=== PATIENT | male | born 1950 | race Caucasian/White ===

== ENCOUNTER 2018-05-29 10:00 | Outpatient (RCR) | payer MEDICARE, OTHER, SELFPAY | END 2018-06-05 14:43 | disposition home or self-care (01) | LOC: PT.CARL 10:00 | PROVIDERS: Visit Provider Nurse Practitioner Family | DX: M54.42 Lumbago with sciatica, left side (principal); M25.551 Pain in right hip; M25.552 Pain in left hip | CPT/HCPCS: 97014; 97110; 97140; 97163; 97164; G0283 ==

== ENCOUNTER 2019-09-09 11:34 | Emergency (ER) | payer MEDICARE, SELFPAY ==
[2019-09-09 11:47] VITALS: BP 143/72; PULSE 72; RESP 16; TEMP 36.6; O2SAT 98; BMI 41.0
--- NOTE | 2019-09-09 11:52 | XR_ITS ---
PROCEDURE: XR ELBOW RT MIN 3V CLINICAL INDICATION: fall Posttraumatic pain COMPARISON: No exams were available for comparison FINDINGS: No obvious or dislocation. Minimal hypertrophic changes at lateral and minimal spurring the olecranon coronoid. IMPRESSION: Mild degenerative changes, no acute. Dictated by: Jose Calderon MD 09/09/2019 12:16 Electronically signed by Jose Calderon MD in [place] 09/09/2019 12:16
--- NOTE | 2019-09-09 11:52 | XR_ITS ---
PROCEDURE: XR SHOULDER RT MIN 2V CLINICAL INDICATION: pain Pain following injury COMPARISON: No exams were available for comparison FINDINGS: Osteoarthritic are the joint with spurring superiorly. The humeral head laterally consistent tendinitis. There are mild degenerative changes shoulder. There is mild subacromial stenosis. No acute fracture or dislocation. IMPRESSION: Osteoarthritic changes with suspected calcific tendinitis Dictated by: Jose Calderon MD 09/09/2019 12:18 Electronically signed by Jose Calderon MD in [place] 09/09/2019 12:18
--- NOTE | 2019-09-09 11:56 | PC.NURSE ---
pt to xray
--- NOTE | 2019-09-09 12:29 | HMH.EDGENADL ---
ED Disposition Clinical Impression: Shoulder pain, acute Disposition: Home, Self-Care Condition on Discharge: Good Additional Instructions: Please follow-up with Dr. Tillman on September 15 at 9 AM. Referrals: Bambi Tolentino APRN [Primary Care Provider] - - Critical Care Critical Care Time: No Attestation: On 09/09/19, the high probability of a clinically significant, sudden or life threatening deterioration of the following system(s) required my full and direct attention, intervention and personal management. The time I documented below is in addition to time spent performing reported procedures but includes the following listed in this critical care notation. Medical Decision Making - Medical Records Medical records reviewed: Yes: I reviewed the patient's medical records. - Carlo Inquiry Pt receiving controlled substance: No Vital Signs: 09/09/19 11:47 Temperature 98 F Temperature Source Tympanic Pulse Rate [Left Radial] 72 Respiratory Rate 16 Blood Pressure [Right Arm] 143/72 H Blood Pressure Mean [Right Arm] 95 Blood Pressure Position [Right Arm] Sitting 02 Sat by Pulse Oximetry 98 Oxygen Delivery Method Room Air - Lab Data Lab results reviewed: Yes: I reviewed the patient's lab results. - Radiology Data #1 Image(s): Shoulder Preliminary Findings: Normal/NAD General Adult HPI - General Chief complaint: PAIN Stated complaint: AO [id number] right shoulder pain, home fall Time Seen by Provider: 09/09/19 12:29 Mode of Arrival: Ambulatory Limitations: No Limitations Description of Symptoms (Recalled from ER Triage Doc. by RN): to ed per pvt car with c/o rt shoulder pain pt states fell getting out of a wrecker landing on elbow 07/16/19. pt c/o pain with movement states unable to sleep due to pain - History of Present Illness HPI narrative: 61-year-old male presents with shoulder pain. Patient stated that he had an injury about 10 weeks ago where he fell out of a truck and landed on his shoulder. Since then he did have acute pain secondary to the traumatic injury but the pain did get better now he states that he has almost like an injured feeling in the shoulder. He states that certain movements really exacerbate this pain specifically when driving when internal rotation of that shoulder causes him pain. He also states he feels pain in the anterior part of the shoulder as well especially when lifting objects greater than 90 degrees with that arm. Abduction also causes pain along with weighted abduction. Patient describes his pain as a injured sensation and describes it as sharp pressure in the posterior part of the shoulder. He states that alleviating factors include rest and nonmovement exacerbating factors include abduction and internal rotation. - Related Data Allergies Allergy/AdvReac Type Severity Reaction Status Date / Time No Known Allergies Allergy Unverified 04/30/17 14:37 [facility] History - Hepatitis A Screen Drug use history?: No High risk sexual behaviors?: No History of sexually transmitted infection?: No Currently employed?: No Childcare worker?: No Do you have indoor plumbing?: Yes Do you have electricity?: Yes Attestation statement:: This patient has been screened for Hepatitis A risk factors. I have reviewed the patient's past medical history: Yes - Social History Alcohol Intake: never Occupational Status: other Housing: other ROS Obtained: Yes All systems reviewed & no additional complaints - Constitutional Constitutional: Reports system reviewed and no additional complaints, except as docu - Eyes Eyes: Reports system reviewed and no additional complaints, except as docu - ENT Ears, Nose, Mouth, and Throat: Reports system reviewed and no additional complaints, except as docu - Cardiovascular Cardiovascular: Reports system reviewed and no additional complaints, except as docu - Respiratory Respiratory: Yes system reviewed and no additional complain
[2019-09-09 12:51] VITALS: BP 143/72; PULSE 72; RESP 16; TEMP 36.6; O2SAT 98
== END 2019-09-09 12:52 | disposition home or self-care (01) ==
PROVIDERS: Emergency Provider Family Medicine; PCP Nurse Practitioner Family
DX: M25.511 Pain in right shoulder (principal)
CPT/HCPCS: 73030; 73080; 99282

== ENCOUNTER → 2019-09-21 12:44 | Outpatient (CLI) | payer MEDICARE, SELFPAY | PROVIDERS: PCP Family Medicine; Visit Provider Orthopaedic Surgery | DX: M25.511 Pain in right shoulder (principal) ==

== ENCOUNTER → 2019-09-25 13:41 | Outpatient (CLI) | payer MEDICARE, SELFPAY ==
--- NOTE | 2019-09-25 14:13 | MR_ITS ---
PROCEDURE: MR SHOULDER RT WO CON CLINICAL INDICATION: RIGHT SHOULDER PAIN Severe right shoulder pain COMPARISON: XR SHOULDER RT MIN 2V from 09/09/2019 TECHNIQUE: Routine multiplanar multi echo sequences are performed without gadolinium enhancement. FINDINGS: Exam is very limited due to patient's inability to tolerate the exam. Limited sequences are submitted including oblique coronal and axial images. Exam was done with the patient in the body coil due to patient's body size. Prominent hypertrophic and osteoarthritic changes are present at the acromioclavicular joint. There is subacromial stenosis of 5 mm. The infraspinatus tendon and supraspinatus tendon are thickened consistent with tendinopathy/tendinosis. It is very difficult to evaluate the supraspinatus tendon due to patient's positioning. A complete or full-thickness tear however is not felt to be present. The subscapularis and teres minor tendons appear intact. No obvious labral tear. There is a small shoulder joint effusion and there is fluid collection in the sub coracoid region consistent with bursitis. IMPRESSION: Very limited exam with tendinopathy/tendinosis of the supraspinatus and infraspinatus tendons. A full-thickness or complete tear is not identified. Osteoarthritic changes of the acromioclavicular joint with subacromial stenosis with shoulder joint effusion and subcoracoid bursitis Dictated by: Jose Calderon MD 09/26/2019 07:35 Electronically signed by Jose Calderon MD in [place] 09/26/2019 07:35
== END ==
PROVIDERS: PCP Nurse Practitioner Family; Visit Provider Orthopaedic Surgery
DX: M25.511 Pain in right shoulder (principal)
CPT/HCPCS: 73221

== ENCOUNTER 2019-12-02 16:03 | Emergency (ER) | payer MEDICARE, SELFPAY ==
[2019-12-02 16:16] VITALS: BP 156/66; PULSE 68; RESP 20; TEMP 36.5; O2SAT 96; BMI 42.5
--- NOTE | 2019-12-02 16:23 | HMH.EDGENADL ---
ED Disposition Clinical Impression: Vertigo Disposition: Home, Self-Care Condition on Discharge: Good Instructions: DI for Vertigo Additional Instructions: Antivert as needed for vertigo. Follow-up with primary care provider, call tomorrow to arrange follow-up. Return to the emergency room if severe vertigo, unable to walk, repetitive vomiting, visual problems, speaking problems, or numbness or weakness of extremities. Prescriptions: Meclizine HCl [Antivert 25mg tablet] 25 mg PO TIDP PRN #15 tab PRN Reason: Vertigo Transmission Status: Pending to [id number] Referrals: Bambi Tolentino APRN [Primary Care Provider] - - Critical Care Critical Care Time: No Attestation: On , the high probability of a clinically significant, sudden or life threatening deterioration of the following system(s) required my full and direct attention, intervention and personal management. The time I documented below is in addition to time spent performing reported procedures but includes the following listed in this critical care notation. Medical Decision Making - Carlo Inquiry Pt receiving controlled substance: No Vital Signs: 12/02/19 16:16 12/02/19 16:31 Temperature 97.7 F Temperature Source Temporal Artery Scan Pulse Rate [Radial] 68 71 Respiratory Rate 20 Blood Pressure [Right Arm] 156/66 H 144/69 H Blood Pressure Mean [Right Arm] 96 94 Blood Pressure Source [Right Arm] Automatic Cuff Automatic Cuff Blood Pressure Position [Right Arm] Sitting Sitting 02 Sat by Pulse Oximetry 96 96 Oxygen Delivery Method Room Air Room Air - Lab Data Lab Results 12/02/19 18:00: WBC 8.4, RBC 4.48 L, Hgb 14.1, Hct 40.7 L, MCV 91.0, MCH 31.4 H, MCHC 34.5, RDW 13.5, Plt Count 120 L, MPV 10.0, Neut % (Auto) 63.0, Lymph % (Auto) 28.5, [place] % (Auto) 4.7, Eos % (Auto) 3.0, Baso % (Auto) 0.9, Neut # (Auto) 5.3, Lymph # (Auto) 2.4, [place] # (Auto) 0.4, Eos # (Auto) 0.3, Baso # (Auto) 0.1 12/02/19 18:00: Sodium 138, Potassium 4.1, Chloride 103, Carbon Dioxide 27, Anion Gap 12.1, BUN 13, Creatinine 0.80, Estimated Creat Clear 68, Estimated GFR 96, Est GFR ( Amer) 116, Glucose 141 H, Calcium 8.9, Total Bilirubin 1.0, AST 38, ALT 35, Alkaline Phosphatase 48, Troponin I < 0.01, Total Protein 6.8, Albumin 3.7, Globulin 3.1, Albumin/Globulin Ratio 1.2, Acetone Level None detected 12/02/19 18:11: Urine Color Straw, Urine Appearance Clear, Urine pH 6.5, Ur Specific Friend <= 1.005, Urine Protein Negative, Urine Glucose (UA) Negative, Urine Ketones Negative, Urine Blood Negative, Urine Nitrate Negative, Urine Bilirubin Negative, Urine Urobilinogen 0.2, Ur Leukocyte Esterase Negative, Urine RBC None, Urine WBC Occasional, Ur Squamous Epith Cells Occasional, Urine Bacteria None Result diagrams: 12/02/19 18:00 12/02/19 18:00 - CT Data CT Scan: Head Time Received: 17:[address] Reviewed: Yes: I have viewed the radiologist's interpretation Findings Narrative: PROCEDURE: CT HEAD/BRAIN WO CON CLINICAL INDICATION: vertigo Vertigo and dizziness COMPARISON: No exams were available for comparison TECHNIQUE: Axial images obtained. All CT scans at the facility use one or more dose reduction, viz: automated exposure control, ma/kV adjustment per patient size (including targeted exams where dose is matched to indication, i.e. head), or iterative reconstruction technique. FINDINGS: No midline shift, mass effect, intracranial hemorrhage, hydrocephalus, or extra-axial fluid collection is evident. The calvarium has an unremarkable appearance. No mastoid effusion. No sinus air-fluid level. IMPRESSION: No acute intracranial finding Dictated by: Jose Calderon MD 12/02/2019 17:00 Electronically signed by Jose Calderon MD in [place] 12/02/2019 17:00 - ECG Data Tracing #1 EKG interpreted by Fred Montilla MD: Rhythm: sinus Rate: 64 Crapo: normal Ectopy: none Conduction: Right bundle branch block ST Segment Ch
--- NOTE | 2019-12-02 16:28 | CT_ITS ---
PROCEDURE: CT HEAD/BRAIN WO CON CLINICAL INDICATION: vertigo Vertigo and dizziness COMPARISON: No exams were available for comparison TECHNIQUE: Axial images obtained. All CT scans at the facility use one or more dose reduction, viz: automated exposure control, ma/kV adjustment per patient size (including targeted exams where dose is matched to indication, i.e. head), or iterative reconstruction technique. FINDINGS: No midline shift, mass effect, intracranial hemorrhage, hydrocephalus, or extra-axial fluid collection is evident. The calvarium has an unremarkable appearance. No mastoid effusion. No sinus air-fluid level. IMPRESSION: No acute intracranial finding Dictated by: Jose Calderon MD 12/02/2019 17:00 Electronically signed by Jose Calderon MD in [place] 12/02/2019 17:00
[2019-12-02 16:31] VITALS: BP 144/69; PULSE 71; O2SAT 96
--- NOTE | 2019-12-02 16:43 | PC.NURSE ---
Pt to rad.
--- NOTE | 2019-12-02 16:57 | PC.NURSE ---
Pt returned from rad.
--- NOTE | 2019-12-02 17:26 | ECG_ITS ---
APPROVED REPORT Exam: Resting ECG HR:64 bpm ECG Measurements Heart Rate 64 AXES WV 146 P 54 QRSd 142 QRS 104 QT 440 T 42 QTc 453 <Conclusion> Normal sinus rhythm Right bundle branch block Abnormal ECG Electronically signed by : Aiden Fitzpatrick, 12/04/2019 19:59:57
[2019-12-02 18:19] LABS: Chloride 103 mmol/L (98-107); Sodium 138 mmol/L (136-145)
[2019-12-02 18:20] LABS: Basophils # 0.1 K/mm3 (0-0.2); Basophils % 0.9 % (0.1-2.0); Eosinophils # 0.3 K/mm3 (0.0-0.4); Hematocrit 40.7 % (42.0-52.0); Hemoglobin 14.1 g/dL (14.1-18.0); Lymphocytes # 2.4 K/mm3 (0.7-4.5); Lymphocytes % 28.5 % (10-50); Mean Corpuscular HGB Conc 34.5 g/dL (31.8-35.4); Mean Corpuscular Hemoglobin 31.4 pg (27.0-31.2); Monocytes # 0.4 K/mm3 (0.1-1.0); Monocytes % 4.7 % (1.7-9.3); Neutrophils # 5.3 K/mm3 (1.8-7.8); Platelet Count 120 K/mm3 (142-424); Potassium 4.1 mmoL/L (3.5-5.1); Red Blood Count 4.48 M/mm3 (4.60-6.20); Red Cell Distribution Width 13.5 % (11.5-17.5); White Blood Count 8.4 K/mm3 (4.8-10.8)
[2019-12-02 18:20] LABS: Microscopic, Urine URINE MICROSCOPIC (MICROSCOPIC)
[2019-12-02 18:22] LABS: Alanine Aminotransferase 35 U/L (12-78); Alkaline Phosphatase 48 U/L (38-126); Aspartate Amino Transferase 38 U/L (17-59); Blood Urea Nitrogen 13 mg/dl (9-20); Creatinine Clearance Estimated 68 mL/min (50-200); Estimated Glomerular Filt Rate 96 ml/min (>60); GFR (African American) 116 ML/MIN (>60)
[2019-12-02 18:23] LABS: Appearance,Urine CLEAR (Clear); Bilirubin,Urine Negative (Negative); Blood, Urine Negative (Negative); Color,Urine STRAW (Yellow); Glucose,Urine (UA) Negative (Negative); Ketones,Urine Negative (Negative); Leukocyte Esterase,Urine Negative (Negative); Nitrate,Urine Negative (Negative); PH,Urine 6.5 (5.0-8.5); Protein,Urine Negative (Negative); Specific Gravity, Urine <= 1.005 (1.005-1.030); Urobilinogen,Urine 0.2 EU/dl (0.2)
[2019-12-02 18:23] LABS: Albumin Level 3.7 g/dl (3.5-5.0); Albumin/Globulin Ratio 1.2 (1.1-1.8); Anion Gap 12.1 mEq/L (5-15); Calcium 8.9 mg/dl (8.4-10.2); Carbon Dioxide 27 mmol/L (22.0-30.0); Globulin 3.1 g/dL (1.3-3.2); Glucose 141 mg/dl (74-100); Total Protein,Serum 6.8 g/dl (6.3-8.2)
[2019-12-02 19:03] LABS: Troponin I < 0.01 ng/ml (0.00-0.034)
[2019-12-02 19:16] LABS: Squamous Epithelial Cell,Urine Occasional #/hpf (0-5); WBC,Urine Occasional #/hpf (0-3)
[2019-12-02 19:16] LABS: Acetone, Serum (Rapid) None Detected (None Detect)
[2019-12-02 19:35] VITALS: BP 136/70; PULSE 65; RESP 14; TEMP 36.4; O2SAT 96
== END 2019-12-02 19:35 | disposition home or self-care (01) ==
PROVIDERS: Emergency Provider Emergency Medicine; PCP Nurse Practitioner Family
DX: R42 Dizziness and giddiness (principal); E11.65 Type 2 diabetes mellitus with hyperglycemia; E78.5 Hyperlipidemia, unspecified; K21.9 Gastro-esophageal reflux disease without esophagitis; I10 Essential (primary) hypertension; Z79.899 Other long term (current) drug therapy
CPT/HCPCS: 70450; 80053; 81001; 82009; 84484; 85025; 93005; 99283; 99284

== ENCOUNTER 2019-12-17 10:00 | Outpatient (RCR) | payer MEDICARE, SELFPAY ==
--- NOTE | 2019-11-24 10:34 | HMH.RHREAS ---
Rehab Reassessment Rehab OP Re-assessment Start: 11/24/19 10:20 Freq: Status: Active Protocol: Document 11/24/19 10:20 CARRIE (Rec: 11/24/19 10:23 CARRIE [id number]) Electronically Signed By Danika Stern OT 11/24/19 10:20 Rehab Re-assessment Subjective Subjective I'm feeling pretty good. I still feel like I need to continue therapy to help my arm. Objective Objective Notes Patient has participated well in skilled OT services since the SOC. Patient has participated fully in therapeutic exer, thera act and modalities to increase strength, AROM, endurance and decrease pain levels to return to prior level of function. Assessment Progress Assessment Progressing as Expected Assessment Notes However Patient continues to exhibit deficits with AROM of shoulder ABD and verbalize pain during movement. Patient continues to verbalize diffculty alex belt on however demonstrates 70 degrees of IR without pain. Patient goals met R shoulder ER: 90 IR: 70 Increase R shoulder strengthening 4 Increase endurance to 40 mins of exercises prior to RB 3-4/10 pain at worst Goals Not Met R shoulder AROM ABD: 120 Revised Goals R shoulder AROM of ABD: 140 Increase R shoulder strength to 4 to 4+/5 throughout Increase endurance to 45 mins of exer prior to RB 2-3/10 pain at worst Plan Plan Continue POC. Follow up with MD on 12/01/19. Frequency of Therapy 2x/wk Duration of therapy 4wks Time and Billing Re-Eval Time 15 Re-Eval Billing Units 1 PHYSICIAN CERTIFICATION: I certify the specified therapy services for [place] are required, authorized, and reviewed every 30 days.
== END 2019-12-17 13:00 | disposition home or self-care (01) ==
LOC: OT 10:00
PROVIDERS: PCP Nurse Practitioner Family; Visit Provider Orthopaedic Surgery
DX: M75.41 Impingement syndrome of right shoulder (principal)
CPT/HCPCS: 97014; 97033; 97035; 97110; 97164; 97165; 97530; G0283

== ENCOUNTER → 2020-04-19 14:22 | Outpatient (POV) | payer MEDICARE, SELFPAY | PROVIDERS: Visit Provider Dermatology | DX: Z00.00 Encounter for general adult medical examination without abnormal findings (principal) ==

== ENCOUNTER 2020-12-24 10:27 | Emergency (ER) | payer MEDICARE, SELFPAY ==
[2020-12-24 10:28] VITALS: BP 109/56; PULSE 67; RESP 22; TEMP 36.7; O2SAT 93; BMI 40.7
--- NOTE | 2020-12-24 10:53 | HMH.EDUTC ---
[facility] [place] Clinical Impression: Viral syndrome, Exposure to COVID-19 virus Disposition: Home, Self-Care Condition on Discharge: Good Instructions: DI for Viral Syndrome, DI for COVID-19 (Suspected or Confirmed ), Preventing the Spread of Coronavirus Discharge Instructions Additional Instructions: Drink plenty of fluids. Take tylenol for pain or fever. Return if you begin to have difficulty breathing. Follow up with your regular doctor. GO TO THE ER FOR ANY WORSENING SYMPTOMS Quarantine until you know the results of your covid-19 test. If it is positive, the health department should call you and give you further instructions about your length of Quarantine and other thing. Prescriptions: Ondansetron [Zofran 4mg ODT] 4 mg PO Q8HP PRN #12 tab.rapdis PRN Reason: Nausea Transmission Status: Received by [id number] Benzonatate [Tessalon Perle 100mg Cap] 100 mg PO TIDP PRN #30 cap PRN Reason: Cough Transmission Status: Received by [facility] Referrals: Bambi Tolentino APRN [Primary Care Provider] - Time of Disposition: 11:13 Medical Decision Making - Medical Records Medical records reviewed: No: I reviewed the patient's medical records. - Carlo Inquiry Pt receiving controlled substance: No Vital Signs: 12/24/20 10:28 12/24/20 11:42 Temperature 98.0 F 0 F L Temperature Source Oral Pulse Rate 0 L Pulse Rate [Right Radial] 67 Respiratory Rate 22 0 L Blood Pressure 0/0 L Blood Pressure [Right Arm] 109/56 L Blood Pressure Mean [Right Arm] 73 Blood Pressure Source [Right Arm] Automatic Cuff Blood Pressure Position [Right Arm] Sitting 02 Sat by Pulse Oximetry 93 L Oxygen Delivery Method Room Air Orders (Tests/Meds): ORDERS Category Date Time Status Covid-19 Nasal PCR ([facility]) Routine Lab 12/24/20 10:50 Received [facility] [place] HPI - General Stated complaint: weakness,cough Time Seen by Provider: 12/24/20 10:54 - History of Present Illness Provider Complaint: He states that he has felt bad for the past 5 days. He has chilling, body aches, a dry cough and a scratchy sore throat. He states that his body aches have been pretty bad . He was vaccinated with the J&J vaccine around August 15, - Related Data Home Medications Medication Instructions Recorded Confirmed aspirin 81 mg tablet,delayed 81 mg PO DAILY 09/16/19 08/31/20 release atorvastatin 20 mg tablet 20 mg PO DAILY 09/16/19 08/31/20 fluticasone propionate 50 1 spray INTRANASAL DAILY 09/16/19 08/31/20 mcg/actuation nasal spray,suspension furosemide 20 mg tablet 20 mg PO Q OTHER DAY 09/16/19 08/31/20 gabapentin 300 mg capsule 300 mg PO DAILY 09/16/19 08/31/20 lancets See Rx Instructions .ROUTE 09/16/19 08/31/20 .MEDSUPPLY #50 each losartan 50 mg tablet 50 mg PO DAILY 09/16/19 08/31/20 montelukast 10 mg tablet 10 mg PO DAILY 09/16/19 08/31/20 omeprazole 20 mg capsule,delayed 20 mg PO DAILY 09/16/19 08/31/20 release ciprofloxacin HCl 500 mg tablet 500 mg PO tab 08/31/20 08/31/20 glipizide 10 mg tablet, extended mg PO 08/31/20 08/31/20 release 24 hr metformin 1,000 mg tablet 1,000 mg PO tab 08/31/20 08/31/20 metoprolol succinate 25 mg mg PO 08/31/20 08/31/20 tablet,extended release 24 hr Previous Rx's Medication Instructions Recorded alprazolam 1 mg tablet 1 mg PO ONCE #1 tab 09/24/19 Meclizine HCl [Antivert 25mg 25 mg PO TIDP PRN #15 tab 12/02/19 tablet] Benzonatate [Tessalon Perle 100mg 100 mg PO TIDP PRN #30 cap 12/24/20 Cap] Ondansetron [Zofran 4mg ODT] 4 mg PO Q8HP PRN #12 tab.rapdis 12/24/20 Allergies Allergy/AdvReac Type Severity Reaction Status Date / Time No Known Allergies Allergy Verified 08/31/20 12:53 [facility] History - Hepatitis A Screen Attestation statement:: This patient has been screened for Hepatitis A risk factors. I have reviewed the patient's past medical history: Yes Medical History: Reports:: Diabetes Mellitus T
[2020-12-24 11:42] VITALS: BP 0/0; PULSE 0; RESP 0; TEMP -17.7; TEMP 0
--- NOTE | 2020-12-24 14:53 | PC.NURSE ---
called patient and updated him on result of positive covid swab. patient informed to quarantine and to pay close attention to certain symptoms.
== END 2020-12-24 11:42 | disposition home or self-care (01) ==
PROVIDERS: Emergency Provider Nurse Practitioner Family; PCP Nurse Practitioner Family
DX: B34.9 Viral infection, unspecified (principal); Z20.822 Contact with and (suspected) exposure to COVID-19
CPT/HCPCS: 99202; G0463; U0003

== ENCOUNTER 2021-04-21 10:30 | Emergency (ER) | payer MEDICARE, SELFPAY ==
[2021-04-21 10:35] VITALS: BP 145/56; PULSE 66; RESP 18; TEMP 36.6; O2SAT 96; BMI 39.2
--- NOTE | 2021-04-21 10:48 | HMH.EDUTC ---
[facility] [place] Disposition Clinical Impression: UTI (urinary tract infection) Qualifiers: Urinary tract infection type: site unspecified Hematuria presence: with hematuria Qualified Code(s): N39.0 - Urinary tract infection, site not specified Disposition: Home, Self-Care Condition on Discharge: Good Instructions: DI for Urinary Tract Infection (UTI) Additional Instructions: Drink plenty of fluids. Take tylenol or ibuprofen for pain or fever. Take the medications as directed. Follow up with your regular doctor. GO TO THE ER FOR ANY WORSENING SYMPTOMS Follow up with your primary care physician next week for a recheck. Prescriptions: Ciprofloxacin HCl [Cipro 500mg Tab] 500 mg PO BID 14 Days #28 tab Transmission Status: Received by [id number] Referrals: Bambi Tolentino APRN [Primary Care Provider] - Time of Disposition: 11:58 Medical Decision Making - Medical Records Medical records reviewed: No: I reviewed the patient's medical records. - Carlo Inquiry Pt receiving controlled substance: No Vital Signs: 04/21/21 10:35 04/21/21 11:59 Temperature 97.8 F 97.8 F Temperature Source Oral Pulse Rate 66 Pulse Rate [Right Brachial] 66 Respiratory Rate 18 18 Blood Pressure 145/56 H Blood Pressure [Right Arm] 145/56 H Blood Pressure Mean [Right Arm] 85 Blood Pressure Source [Right Arm] Automatic Cuff Blood Pressure Position [Right Arm] Sitting 02 Sat by Pulse Oximetry 96 Oxygen Delivery Method Room Air - Lab Data Lab results reviewed: Yes: I reviewed the patient's lab results. Lab Results 04/21/21 11:07: Urine Color Yellow, Urine Appearance Cloudy, Urine pH 5.5, Ur Specific [place] 1.025, Urine Protein Negative, Urine Glucose (UA) 500, Urine Ketones Negative, Urine Blood Trace, Urine Nitrate Negative, Urine Bilirubin Negative, Urine Urobilinogen 1, Ur Leukocyte Esterase 1+ A Orders (Tests/Meds): ED MEDICATIONS Discontinued Medications Generic Name Dose Route Start Last Admin Trade Name Freq PRN Reason Stop Dose Admin Ceftriaxone Sodium 1 gm 04/21/21 11:32 04/21/21 11:44 Ceftriaxone 1gm Vial IM 04/21/21 11:33 1 gm ONCE ONE Administration Lidocaine HCl 0 ml 04/21/21 11:32 04/21/21 11:44 Lidocaine 1% 5ml Pf Vial IM 04/21/21 11:33 2 ml ONCE ONE Administration ORDERS Category Date Time Status Urine Culture Stat Micro 04/21/21 10:30 Received [facility] [place] HPI - General Stated complaint: bilateral ear ache, muscle pain/body aches Time Seen by Provider: 04/21/21 10:48 - History of Present Illness Provider Complaint: He states that for the past 2 days he has been having low back pain and burning while urinating. He has a history of having a urinary stricture. He has to do straight caths at home. He thinks that he has a uti. - Related Data Home Medications Medication Instructions Recorded Confirmed aspirin 81 mg tablet,delayed 81 mg PO DAILY 09/16/19 08/31/20 release atorvastatin 20 mg tablet 20 mg PO DAILY 09/16/19 08/31/20 fluticasone propionate 50 1 spray INTRANASAL DAILY 09/16/19 08/31/20 mcg/actuation nasal spray,suspension furosemide 20 mg tablet 20 mg PO Q OTHER DAY 09/16/19 08/31/20 gabapentin 300 mg capsule 300 mg PO DAILY 09/16/19 08/31/20 lancets See Rx Instructions .ROUTE 09/16/19 08/31/20 .MEDSUPPLY #50 each losartan 50 mg tablet 50 mg PO DAILY 09/16/19 08/31/20 montelukast 10 mg tablet 10 mg PO DAILY 09/16/19 08/31/20 omeprazole 20 mg capsule,delayed 20 mg PO DAILY 09/16/19 08/31/20 release ciprofloxacin HCl 500 mg tablet 500 mg PO tab 08/31/20 08/31/20 glipizide 10 mg tablet, extended mg PO 08/31/20 08/31/20 release 24 hr metformin 1,000 mg tablet 1,000 mg PO tab 08/31/20 08/31/20 metoprolol succinate 25 mg mg PO 08/31/20 08/31/20 tablet,extended release 24 hr Previous Rx's Medication Instructions Recorded alprazolam 1 mg tablet 1 mg PO ONCE #1 tab 09/24/19 Meclizine HCl [Antivert 25mg 25
[2021-04-21 11:23] LABS: Apearance,Urine Cloudy (Clear); Bilirubin,Urine Negative (Negative); Blood, Urine Trace (Negative); Color,Urine Yellow (Yellow); Glucose,Urine (UA) 500 (Negative); Ketones,Urine Negative (Negative); PH,Urine 5.5 (5.0-8.5); Protein,Urine Negative (Negative); Specific Gravity, Urine 1.025 (1.005-1.030); UTC Leukocyte Esterase,Urine 1+ (Negative); UTC Nitrate,Urine Negative (Negative); Urobilinogen,Urine 1 EU/dl (0.2)
[2021-04-21 11:59] VITALS: BP 145/56; PULSE 66; RESP 18; TEMP 36.6; O2SAT 96
== END 2021-04-21 12:03 | disposition home or self-care (01) ==
PROVIDERS: Emergency Provider Nurse Practitioner Family; PCP Nurse Practitioner Family
DX: N30.00 Acute cystitis without hematuria (principal); E11.9 Type 2 diabetes mellitus without complications; K21.9 Gastro-esophageal reflux disease without esophagitis; I10 Essential (primary) hypertension; E78.5 Hyperlipidemia, unspecified
CPT/HCPCS: G0463; 81003; 87086; 87088; 87186; 99202

== ENCOUNTER 2021-07-15 09:45 | Emergency (ER) | payer MEDICARE, SELFPAY ==
[2021-07-15 10:00] VITALS: BP 122/73; PULSE 88; RESP 19; TEMP 36.8; O2SAT 97; BMI 37.5
--- NOTE | 2021-07-15 10:49 | HMH.EDUTC ---
[facility] [place] Disposition Condition on Discharge: Good Time of Disposition: 10:53 (sent to ed for eval) <Hong Braga - Last Filed: 07/15/21 10:49> Condition on Discharge: Good <Fred Lu - Last Filed: 07/15/21 13:09> Clinical Impression: Dizziness, Gastroenteritis Diarrhea Qualifiers: Diarrhea type: unspecified type Qualified Code(s): R19.7 - Diarrhea, unspecified Disposition: Home, Self-Care Instructions: DI for Viral Gastroenteritis -- Adult Prescriptions: Ondansetron [Zofran 4mg ODT] 4 mg PO BIDP PRN #10 tab PRN Reason: Nausea Transmission Status: Pending to [id number] Referrals: Bambi Toelntino APRN [Primary Care Provider] - Medical Decision Making - Carlo Inquiry Pt receiving controlled substance: No <Hong Braga - Last Filed: 07/15/21 10:49> - Lab Data Result diagrams: 07/15/21 11:45 07/15/21 11:45 - Reevaluation(s) Time: 13:08 <Fred Lu - Last Filed: 07/15/21 13:09> Vital Signs: 07/15/21 10:00 07/15/21 11:03 07/15/21 12:42 Temperature 98.3 F 98.3 F Temperature Source Oral Oral Pulse Rate [Right Brachial] 88 87 78 Respiratory Rate 19 17 14 Blood Pressure [Right Arm] 122/73 141/71 H 136/70 Blood Pressure Mean [Right Arm] 89 94 92 Blood Pressure Source [Right Arm] Automatic Cuff Blood Pressure Position [Right Arm] Sitting 02 Sat by Pulse Oximetry 97 95 95 Oxygen Delivery Method Room Air Room Air - Lab Data Lab Results 07/15/21 11:45: WBC 5.5, RBC 4.77, Hgb 14.5, Hct 44.0, MCV 92.3, MCH 30.3, MCHC 32.8, RDW 14.1, Plt Count 167, MPV 10.1, Neut % (Auto) 77.2, Lymph % (Auto) 14.6, [place] % (Auto) 7.0, Eos % (Auto) 0.3, Baso % (Auto) 0.9, Neut # (Auto) 4.2, Lymph # (Auto) 0.8, [place] # (Auto) 0.4, Eos # (Auto) 0.0, Baso # (Auto) 0.1 07/15/21 11:45: Sodium 133 L, Potassium 3.7, Chloride 98, Carbon Dioxide 26, Anion Gap 12.7, BUN 18, Creatinine 0.90, Estimated Creat Clear 116, Estimated GFR 83, Est GFR ( Amer) 101, Glucose 195 H, Calcium 7.7 L, Total Bilirubin 2.0 H, AST 102 H, ALT 59, Alkaline Phosphatase 79, Total Protein 7.4, Albumin 4.0, Globulin 3.4 H, Albumin/Globulin Ratio 1.2 07/15/21 11:45: Lipase 82 Orders (Tests/Meds): ED MEDICATIONS Discontinued Medications Generic Name Dose Route Start Last Admin Trade Name Freq PRN Reason Stop Dose Admin Sodium Chloride 1,000 mls @ 999 mls/hr 07/15/21 11:15 07/15/21 11:27 Sod Chlor 0.9% 1000ml Bag IV 07/15/21 12:15 999 mls/hr .Q1H1M CRESENCIO Administration Ondansetron HCl 4 mg 07/15/21 11:09 07/15/21 11:27 Ondansetron 4mg/2ml Vial IV 07/15/21 11:10 4 mg ONCE ONE Administration - Reevaluation(s) Reevaluation #1: On reevaluation, the patient is feeling better. There is no evidence of leukocytosis. Repeat examination is benign. Patient is tolerating oral intake without any difficulties. Patient will follow up with PCP in 48 hours. Given strict return precautions. Verbalized understanding. (Fred Lu) Medical Decision Narrative: 71-year-old male presented to the emergency department with some vomiting and diarrhea. Patient symptoms are consistent with gastroenteritis. There is concern for some possible volume depletion. Patient was ministered fluids. Work-up initiated. Abdominal exam is benign. No evidence of acute abdomen. (Fred Lu) [facility] [place] HPI - General Mode of Arrival: Ambulatory Source of Information: Patient Limitations: No Limitations Description of Symptoms (Recalled from Triage Doc. by RN): PATIENT C/O VOMITING AND DIARRHEA X 3 DAYS HEENT Symptoms (Recalled from RN notes): No Resp Symptoms (Recalled from RN notes): No Skin Symptoms (Recalled from RN notes): No MS Symptoms (Recalled from RN notes): No Functional Status (Recalled from RN notes): WNL - History of Present Illness Provider Complaint: 71 yr old male presents for n/d/v and dizzy since . pt states he is unable to eat or drink anything for 2 days, pt sta
--- NOTE | 2021-07-15 10:52 | PC.NURSE ---
PATIENT SENT TO ER PER Syed PROCTOR APRN FOR FURTHER EVALUATION. REPORT GIVEN TO Victor Hugo REDDY RN
[2021-07-15 11:03] VITALS: BP 141/71; PULSE 87; RESP 17; TEMP 36.8; O2SAT 95; BMI 39.8
--- NOTE | 2021-07-15 11:37 | ECG_ITS ---
APPROVED REPORT Exam: Resting ECG HR:80 bpm ECG Measurements Heart Rate 80 AXES ID 150 P 52 QRSd 145 QRS 42 QT 406 T 31 QTc 442 Conclusion SINUS RHYTHM RIGHT BUNDLE BRANCH BLOCK [120+ ms QRS DURATION, UPRIGHT V1, 40+ ms S IN I/aVL/V4/V5/V6] ABNORMAL ECG UNCONFIRMED REPORT Electronically signed by : Nithin Day MD 07/16/2021 15:33:34
[2021-07-15 11:55] LABS: Basophils # 0.1 K/mm3 (0-0.2); Basophils % 0.9 % (0.1-2.0); Eosinophils % 0.3 % (0.1-12.0); Hemoglobin 14.5 g/dL (14.1-18.0); Lymphocytes # 0.8 K/mm3 (0.7-4.5); Lymphocytes % 14.6 % (10-50); Mean Corpuscular HGB Conc 32.8 g/dL (31.8-35.4); Mean Corpuscular Hemoglobin 30.3 pg (27.0-31.2); Mean Corpuscular Volume 92.3 fl (80-94); Mean Platelet Volume 10.1 fl (7.4-10.4); Monocytes # 0.4 K/mm3 (0.1-1.0); Neutrophils # 4.2 K/mm3 (1.8-7.8); Neutrophils % 77.2 % (37.0-80.0); Platelet Count 167 K/mm3 (142-424); Red Blood Count 4.77 M/mm3 (4.60-6.20); Red Cell Distribution Width 14.1 % (11.5-17.5); White Blood Count 5.5 K/mm3 (4.8-10.8)
[2021-07-15 12:02] LABS: Chloride 98 mmol/L (98-107); Potassium 3.7 mmoL/L (3.5-5.1); Sodium 133 mmol/L (136-145)
[2021-07-15 12:04] LABS: Blood Urea Nitrogen 18 mg/dl (9-20); Creatinine Clearance Estimated 116 mL/min (50-200); Estimated Glomerular Filt Rate 83 ml/min (>60); GFR (African American) 101 ML/MIN (>60); Lipase 82 U/L (23-300)
[2021-07-15 12:05] LABS: Alanine Aminotransferase 59 U/L (12-78); Albumin/Globulin Ratio 1.2 (1.1-1.8); Alkaline Phosphatase 79 U/L (38-126); Anion Gap 12.7 mEq/L (5-15); Aspartate Amino Transferase 102 U/L (17-59); Calcium 7.7 mg/dl (8.4-10.2); Carbon Dioxide 26 mmol/L (22.0-30.0); Globulin 3.4 g/dL (1.3-3.2); Glucose 195 mg/dl (74-100); Total Protein,Serum 7.4 g/dl (6.3-8.2)
[2021-07-15 12:42] VITALS: BP 136/70; PULSE 78; RESP 14; O2SAT 95
[2021-07-15 13:33] VITALS: BP 119/77; PULSE 88; RESP 19; TEMP 36.8; O2SAT 96
== END 2021-07-15 13:34 | disposition home or self-care (01) ==
LOC: UTC 10:54 → ER 10:59
PROVIDERS: Emergency Medicine; Emergency Provider Nurse Practitioner Family; PCP Nurse Practitioner Family
DX: R42 Dizziness and giddiness (principal); R11.0 Nausea; R19.7 Diarrhea, unspecified; I10 Essential (primary) hypertension; E78.5 Hyperlipidemia, unspecified; K21.9 Gastro-esophageal reflux disease without esophagitis; E10.9 Type 1 diabetes mellitus without complications; M19.90 Unspecified osteoarthritis, unspecified site; Z79.82 Long term (current) use of aspirin; Z79.84 Long term (current) use of oral hypoglycemic drugs; Z79.899 Other long term (current) drug therapy; Z79.51 Long term (current) use of inhaled steroids
CPT/HCPCS: 80053; 83690; 85025; 93005; 96361; 96365; 96374; 96375; 99284; J2405

== ENCOUNTER → 2022-11-07 16:30 | Outpatient (CLI) | payer MEDICARE, SELFPAY ==
--- NOTE | 2022-11-07 16:32 | MR_ITS ---
PROCEDURE INFORMATION: Exam: MR Left Upper Extremity Joint Without Contrast; Shoulder Exam date and time: 11/07/2022 4:27 PM Age: 72 years old Clinical indication: Pain; Shoulder; Left; Additional info: Left shoulder pain. Limited rom. TECHNIQUE: Imaging protocol: Magnetic resonance imaging of the left upper extremity without contrast. Exam focused on the shoulder. COMPARISON: No relevant prior studies available. FINDINGS: Bones/joints: The acromioclavicular joint has mild osteoarthrosis. The acromion is type 2. There is moderate diffuse chondromalacia of the glenohumeral joint. The alignment is anatomic. The marrow signal is normal. No fracture. Glenoid labrum: There is degeneration of the labrum with nondisplaced superior tearing. Supraspinatus tendon: Low-grade articular sided tear of supraspinatus measuring 9 mm AP dimension with associated tendinosis. Infraspinatus tendon: Infraspinatus tendinosis is also present without evidence of tearing. Subscapularis tendon: Tendinosis of subscapularis is also present with low-grade articular sided tearing. Teres minor tendon: Unremarkable. No evidence of tear. Tendon of biceps brachii: Unremarkable. No evidence of tear. Glenohumeral ligaments: Unremarkable. Soft tissues: Unremarkable. IMPRESSION: 1. Diffuse rotator cuff tendinosis with low-grade articular sided tearing of supraspinatus and subscapularis. No muscular atrophy. 2. 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 3. Labral degeneration with nondisplaced superior tear.
== END ==
PROVIDERS: PCP Nurse Practitioner Family; Visit Provider Orthopaedic Surgery
DX: M25.512 Pain in left shoulder (principal)
CPT/HCPCS: 73221

== ENCOUNTER 2023-05-13 12:00 | Emergency (ER) | payer MEDICARE, SELFPAY ==
[2023-05-13 13:50] VITALS: BP 129/77; PULSE 75; RESP 19; TEMP 36.7; O2SAT 98; BMI 41.0
--- NOTE | 2023-05-13 14:09 | ED_ITS ---
Discharge Plan Disposition Patient Disposition: Home, Self-Care Condition: Good Prescriptions Prescriptions: New amoxicillin 500 mg capsule 500 mg PO TID 7 Days Qty: 21 0RF No Action (DME) lancets [Accu-Chek Softclix Lancets] Misc See Rx Instructions .ROUTE .MEDSUPPLY Qty: 50 Rx Instructions: As directed atorvastatin 20 mg tablet 20 mg PO HS glipizide 10 mg tablet extended release 24hr 10 mg PO DAILY gabapentin 300 mg capsule 300 mg PO DAILY omeprazole 20 mg capsule,delayed release(DR/EC) 20 mg PO DAILY montelukast 10 mg tablet 10 mg PO DAILY metoprolol succinate 25 mg tablet extended release 24 hr 25 mg PO DAILY fluticasone propionate 50 mcg/actuation spray,suspension 2 spray INTRANASAL DAILY Referrals Follow up/Referrals: Nia Mccord APRN [Primary Care Provider] - See instructions Activity Restrictions/Add. Instructions Additional Instructions/Restrictions: *Monitor Temp, Over the counter Motrin or Tylenol as directed/as needed Tylenol every 4 hours and Motrin every 6 hours (as long as your family doctor has told you that you can take it) for fever or pain. and straight to ER if unable to lower temp less than 101.0 after medication given *Warm salt water gargles may help to soothe the throat *Throat Lozenges? *Warm fluids like tea with honey may help to soothe the throat? *Sleep elevated *Humidifier/Vaporizer Your throat swab was sent for culture. Those results are typically sent to your primary care. Be sure to follow up in 2-3 days with your family doctor/primary care physician if no improvement so they can review those result and treat if necessary. If you don?t have a primary care doctor, I recommend you get one but in the mean time, you will have to return to a walk in clinic Follow up IMMEDIATELY for new or worsening symptoms or no Noticeable improvement over the next 48-72 hours. 911 for difficulty breathing or swallowing Clinical Impressions Clinical Impression: Otitis media Qualifiers: Otitis media type: unspecified Laterality: left Qualified Code(s): H66.92 - Otitis media, unspecified, left ear Instructions Patient Instructions: Middle Ear Infection, Amoxicillin Discharge ED Provider: Jamia Sawyer [facility] [place] HPI General Stated complaint: pain urinating, ear and throat pain Mode of Arrival: Ambulatory Source of Information: Patient Limitations: No Limitations Time Seen by Provider: 05/13/23 14:09 Description of Symptoms (Recalled from Triage Doc. by RN): PATIENT C/O LEFT EAR PAIN, SORE THROAT, AND PAIN WITH URINATING HEENT Symptoms (Recalled from RN notes): Yes Resp Symptoms (Recalled from RN notes): No Skin Symptoms (Recalled from RN notes): No MS Symptoms (Recalled from RN notes): No Functional Status (Recalled from RN notes): WNL History of Present Illness Provider Complaint: Patient states that he has been having pain in his left ear, sore throat and burning with urination for a couple of days States that he gets UTI's and feels like he may have one but his ear and throat is hurting worse so the came in to get it checked Related Data Home Medications Medication Instructions Recorded Confirmed lancets (Accu-Chek Softclix #50 ea 09/16/19 08/31/20 Lancets) atorvastatin 20 mg tablet 20 mg PO HS 05/13/23 05/13/23 fluticasone propionate 50 2 spray intranasal DAILY 05/13/23 05/13/23 mcg/actuation nasal spray,suspension gabapentin 300 mg capsule 300 mg PO DAILY 05/13/23 05/13/23 glipizide 10 mg tablet, extended 10 mg PO DAILY 05/13/23 05/13/23 release 24 hr metoprolol succinate 25 mg 25 mg PO DAILY 05/13/23 05/13/23 tablet,extended release 24 hr montelukast 10 mg tablet 10 mg PO DAILY 05/13/23 05/13/23 omeprazole 20 mg capsule,delayed 20 mg PO DAILY 05/13/23 05/13/23 release Previous Rx's Medication Instructions Recorded amoxicillin 500 mg capsule 500 mg PO TID 7 days #21 caps 05/13/23 Allergies Allergy/AdvReac Type Severity Reaction Status Date / Time No Known Allergies Allergy Verified 08/31/20 12:53 Worker's Comp Is this a Worker's Comp case?: No [facility] Disclaimer: The information contained in this section may have been updated after the patient was seen, as this information can be updated by other users. Medical History (Updated 05/13/23 @ 14:19 by Jamia Sawyer APRN) Atrial fibrillation Diabetes mellitus, type 2 History of heart attack Hyperlipidemia Hypertension Kidney stone Prostate disorder Urinary tract infection Surgical History (Updated 05/13/23 @ 13:57 by Norma Mohan RN) History of cardiac cath Social History Smoking Status: Never smoker alcohol intake: never current occupational status: other Travel in the last 8 weeks: None housing: house ROS Obtained: Yes All systems reviewed & no additional complaints except as documented and Yes Systems reviewed as appropriate & no additional complaints except as documented Constitutional Constitutional: Reports system reviewed and no additional complaints, except as documented, Reports as per HPI, Denies body ache, Denies chills and Denies fever(s) ENT Ears, Nose, Mouth, and Throat: Reports system reviewed and no additional complaints, except as documented, Reports as per HPI, Reports otalgia and Reports sore throat Cardiovascular Cardiovascular: Reports system reviewed and no additional complaints, except as documented and Reports as per HPI Respiratory Respiratory: Reports system reviewed and no additional complaints, except as documented and Reports as per HPI Gastrointestinal Gastrointestingal: Reports system reviewed and no additional complaints, except as documented and as per HPI; Denies abdominal pain, diarrhea, nausea or vomiting Genitourinary Male Genitourinary: Reports system reviewed and no additional complaints, except as documented, Reports as per HPI and Reports other (burning with urination) Musculoskeletal Musculoskeletal: Reports system reviewed and no additional complaints, except as documented and Reports as per HPI Integumentary/Breasts Skin/Breast: Reports system reviewed and no additional complaints, except as documented and Reports as per HPI Physical Exam General General appearance: alert and in no apparent distress ENT ENT exam: Present mucous membranes moist Expanded ENT Exam TM/Canal exam: Left TM: erythema and bulging Throat exam: Present tonsillar erythema Respiratory Respiratory exam: Present normal lung sounds bilaterally; Absent respiratory distress or wheezes Cardiovascular Cardiovascular exam: Present regular rate, normal rhythm and normal heart sounds Neurological Exam Neurological exam: Present alert, oriented X3 and normal gait Medical Decision Making Carlo Inquiry Pt receiving controlled substance: No Carlo was queried for this patient: No Vital Signs: 05/13/23 13:50 Temperature 98.1 F Temperature Source Oral Pulse Rate [Right Brachial] 75 Respiratory Rate 19 Blood Pressure [Right Arm] 129/77 Blood Pressure Mean [Right Arm] 94 Blood Pressure Source [Right Arm] Automatic Cuff Blood Pressure Position [Right Arm] Sitting 02 Sat by Pulse Oximetry 98 Oxygen Delivery Method Room Air Lab Data Lab results reviewed: Yes I reviewed the patient's lab results.
[2023-05-13 14:10] LABS: Apearance,Urine Clear (Clear); Bilirubin,Urine Negative (Negative); Blood, Urine Negative (Negative); Color,Urine Yellow (Yellow); Glucose,Urine (UA) Negative (Negative); Ketones,Urine Negative (Negative); Protein,Urine Negative (Negative); Specific Gravity, Urine 1.025 (1.005-1.030); UTC Leukocyte Esterase,Urine Negative (Negative); UTC Nitrate,Urine Negative (Negative); UTC Strep Screen (Rapid) Negative (Negative); Urobilinogen,Urine 0.2 EU/dl (0.2)
[2023-05-13 14:21] VITALS: BP 129/77; PULSE 75; RESP 19; TEMP 36.7; O2SAT 98
== END 2023-05-13 14:25 | disposition home or self-care (01) ==
PROVIDERS: Emergency Provider Nurse Practitioner; PCP Nurse Practitioner Family
DX: H66.92 Otitis media, unspecified, left ear (principal); R07.0 Pain in throat; R30.0 Dysuria; E11.9 Type 2 diabetes mellitus without complications; I10 Essential (primary) hypertension; E78.5 Hyperlipidemia, unspecified; Z79.84 Long term (current) use of oral hypoglycemic drugs
CPT/HCPCS: 81003; 87880; 99212; 99214; G0463

== ENCOUNTER 2024-11-28 11:35 | Emergency (ER) | payer MEDICARE, SELFPAY ==
--- OUTSIDE RECORDS SUMMARY | 2024-10-19 10:30 | XMS_ITS | Encounter Summary ---
Author Organization [facility] Address [address] [place] [id number] Care Team Providers Care Jewelry Engraver Name Role Phone BrigettekiannaNia FORM BUILDER Primary Care Provi manda Reason for Visit * Reason Comments Coronary Artery Disease Sleep Apnea Encounter Details Date Type Department Care Team (Late st Contact Info) Description 10/19/2024 10:30 AM EDT Office Visit [facility] [address] [place] [phone] Bonny Vasquez APRN [address] [place] [address] Coronary artery disease involving quileute coronary artery of quileute heart without angina pectoris (Primary Dx); Paroxysmal atrial fibrillation; MARK (obstructive sleep apnea); Hypertension, essential Social History Tobacco Use Types Packs/Day Years Used Date Smoking Tobacco: Never Passive Smoke Exposure: Never Smokeless Tobacco: Never Alcohol Use Standard Drinks/Week Comments Never 0 (1 standard drink = 0.6 oz pur e alcohol) Sex and Gender Information Value Date Recorded Sex Assigned at Male 10/18/2024 7:26 PM EDT Legal Sex Male 4:30 PM EST Gender Identity Not on file Sexual Orientation Not on file documented as of this encounter Last Filed Vital Signs Vital Sign Reading Time Taken Comments Blood Pressure 120/66 10/19/2024 10:17 AM EDT Pulse 69 10/19/2024 10:17 AM EDT Temperature - - Respiratory Rate - - Oxygen Saturation 97% 10/19/2024 10:17 AM EDT Inhaled Oxygen Concentration - - Weight 120 kg (265 lb) 10/19/2024 10:17 AM EDT Height 172.7 cm (5' 8 ) 10/19/2024 10:17 AM EDT Body Mass Index 40.29 10/19/2024 10:17 AM EDT documented in this encounter Progress Notes * Bonny Vasquez APRN - 10/19/2024 12:13 PM EDTAssociated Problem(s): MARK (obstructive sleep apnea) He is doing very well on BiPAP therapy with excellent control and compliance. Download reviewed andinterpreted today. Compliance is 100%, average use per night is 9 hours and 14 minutes. AHI 0.2. -Cannot new PAP therapy at current settings - Continue to wear chinstrap to help prevent leaking - Do not drive if sleepy * Bonny Vasquez APRN - 10/19/2024 12:12 PM EDTAssociated Problem(s): Paroxysmal atrial fibrillation Stable and rate controlled. Only occasional brief episodes that occur with exertion. No sustained events that he is aware of. - Continue metoprolol and Eliquis at current doses. - He no longer qualifies for financial assistance for Eliquis, he has been paying $700 a month, which she cannot afford right now. Samples provided today. He was told that he will be eligible for assistance in March. We will try to provide samples until that time. * Bonny Vasquez APRN - 10/19/2024 12:11 PM EDTAssociated Problem(s): Hypertension, essential Hypertension is stable and controlled Continue current treatment regimen. Dietary sodium restriction. Weight loss. Regular aerobic exercise. Blood pressure will be reassessed in 6 months * Bonny Vasquez APRN - 10/19/2024 12:11 PM EDTAssociated Problem(s): Coronary artery disease involving quileute coronary artery of quileute heart with out angina pectoris Patient reports a previous history of coronary angioplasty in 1996 with no stents. He is currently asymptomatic. Lipid panel from 03/23/2024 reviewed. Total cholesterol 158, triglycerides 104, HDL 45 and LDL 90. - Continue aspirin, atorvastatin, metoprolol and losartan at current doses * Bonny Vasquez APRN - 10/19/2024 10:30 AM EDT Images from the original note were not included. [facility] Provider Note Date: 10/19/2024 Name: Danish Liao : 1950 PCP: Nia Mccord APRN Chief Complaint Patient presents with Coronary Artery Disease Sleep Apnea Subjective History of Present Illness Danish Liao is a 74 y.o. male who presents today for follow-up on MARK, CAD and atrial fibrillation. Patient reports that he has been doing well from a cardiac standpoint. He denies chest pain, shortness of breath, palpitations, lower extremity edema, dizziness or syncope. He also denies any recent ER visits or hospitalizations. He has a history of MARK and is doing very well on BiPAP therapy with excellent control and compliance. Download reviewed and interpreted today. Compliance is 100%, average use per night is 9 hours and 14 minutes. AHI 0.2. He is using a fullface mask and doing wellwith that. Airflow is comfortable. He denies excessive daytime sleepiness or fatigue. He has a history of paroxysmal atrial fibrillation and CAD. He denies any recent known episodes of atrial fib. He continues to take metoprolol and Eliquis. He underwent angioplasty in 1996 but no coronary stents. Overall, he is doing well today with no new concerns at this time. Cardiology/sleep history 1. CAD/mild-data deficit. Stress echo June 16, 2020 2. Paroxysmal A-fib-on metoprolol and Eliquis 3. MARK-PSG 12/22/2021 -BiPAP with pressure support of 4 4. RBBB 5. Carotid duplex 12/30/2019 less than 50% bilaterally 6. Grade 1 diastolic dysfunction Nuclear stress test 04/16/24- ?? Significant coronary artery calcifications seen on CT but no evidence of ischemic coronary artery disease. ?? Impressions are consistent with a low risk study. ?? Left ventricular ejection fraction is normal (Calculated EF = 66%). Echocardiogram 01/24/2023-EF 61 to 65% grade 1 diastolic dysfunction. A-fib but rate controlled at 77. No significant valvular regurgitation or stenosis. RVSP is normal. Reports Denies Chest Pain [] [x] Shortness of Air [] [x] Palpitations [] [x] Edema [] [x] Dizziness [] [x] Syncope [] [x] No Known Allergies Current Outpatient Medications: apixaban (Eliquis) 5 MG tablet tablet, Take 1 tablet by mouth 2 (Two) Times a Day., Disp: 84 tablet, Rfl: 0 Ascorbic Acid (Vitamin C ER) 500 MG tablet controlled-release, Take 500 mg by mouth Daily., Disp: ,Rfl: aspirin 81 MG EC tablet, Daily., Disp: , Rfl: atorvastatin (LIPITOR) 20 MG tablet, Take 1 tablet by mouth Daily., Disp: , Rfl: B-D UF III MINI PEN NEEDLES 31G X 5 MM [facility] [place], , Disp: , Rfl: diphenhydrAMINE (BENADRYL) 25 mg capsule, 2 capsules., Disp: , Rfl: fluticasone (FLONASE) 50 MCG/ACT nasal spray, Administer 1 spray into the nostril(s) as directed byprovider Daily As Needed., Disp: , Rfl: furosemide (LASIX) 20 MG tablet, As needed, Disp: , Rfl: gabapentin (NEURONTIN) 300 MG capsule, Take 1 capsule by mouth Daily., Disp: , Rfl: glipizide (GLUCOTROL XL) 10 MG 24 hr tablet, Take 1 tablet by mouth Daily., Disp: , Rfl: Insulin Glargine (BASAGLAR KWIKPEN) 100 UNIT/ML injection pen, 25 Units 2 (Two) Times a Day., Disp:, Rfl: Insulin Glargine (BASAGLAR KWIKPEN) 100 UNIT/ML injection pen, Inject under the skin into the appropriate area as directed Daily., Disp: , Rfl: losartan (COZAAR) 50 MG tablet, Take 1 tablet by mouth Daily., Disp: , Rfl: metFORMIN (GLUCOPHAGE) 500 MG tablet, Take 1 tablet by mouth 2 (Two) Times a Day With Meals., Disp:, Rfl: metoprolol succinate XL (TOPROL-XL) 25 MG 24 hr tablet, Take 1 tablet by mouth Daily., Disp: 90 tablet, Rfl: 3 montelukast (SINGULAIR) 10 MG tablet, Take 1 tablet by mouth., Disp: , Rfl: omeprazole (priLOSEC) 20 MG capsule, Daily., Disp: , Rfl: VITAMIN D PO, Take by mouth., Disp: , Rfl: Past Medical History: Diagnosis Date CAD (coronary artery disease) Essential (primary) hypertension Hypercholesterolemia Lumbar herniated disc NECK 1998 MARK (obstructive sleep apnea) BASELINE AHI 35 ; ON AUTOCPAP Paroxysmal atrial fibrillation Type 2 diabetes mellitus Past Surgical History: Procedure Laterality Date ANGIOPLASTY 1996 BACK SURGERY Family History Problem Relation Age of Onset Kidney failure Mother Other Sister LIVER FAILURE Social History Socioeconomic History Marital status: Number of children: 5 Tobacco Use Smoking status: Never Passive exposure: Never Smokeless tobacco: Never Vaping Use Vaping status: Never Used Substance and Sexual Activity Alcohol use: Never Drug use: Never Sexual activity: Defer Objective Vital Signs: BP 120/66 Pulse 69 Ht 172.7 cm (68 ) Wt 120 kg (265 lb) SpO2 97% BMI 40.29 kg/m?? Estimated body mass index is 40.29 kg/m?? as calculated from the following: Height as of this encounter: 172.7 cm (68 ). Weight as of this encounter: 120 kg (265 lb). Class 3 Severe Obesity (BMI >=40). Obesity-related health conditions include the following: obstructive sleep apnea and hypertension. Obesity is unchanged. BMI is is above average; BMI management plan is completed. We discussed portion control and increasing exercise. Physical Exam Vitals reviewed. Constitutional: Appearance: Normal appearance. HENT: Head: Normocephalic. Cardiovascular: Rate and Rhythm: Normal rate and regular rhythm. Heart sounds: Normal heart sounds. Pulmonary: Effort: Pulmonary effort is normal. Breath sounds: Normal breath sounds. Musculoskeletal: Right lower leg: No edema. Left lower leg: No edema. Skin: General: Skin is warm and dry. Capillary Refill: Capillary refill takes less than 2 seconds. Neurological: General: No focal deficit present. Mental Status: He is alert and oriented to person, place, and time. Psychiatric: Mood and Affect: Mood normal. Behavior: Behavior normal. PAP download reviewed: Most recent PAP download reviewed Assessment and Plan Diagnoses and all orders for this visit: 1. Coronary artery disease involving quileute coronary artery of quileute heart without angina pectoris(Primary) Assessment & Plan: Patient reports a previous history of coronary angioplasty in 1996 with no stents. He is currently asymptomatic. Lipid panel from 03/23/2024 reviewed. Total cholesterol 158, triglycerides 104, HDL 45 and LDL 90. - Continue aspirin, atorvastatin, metoprolol and losartan at current doses 2. Paroxysmal atrial fibrillation Comments: Rare episodes. Continue medication doing well. Assessment & Plan: Stable and rate controlled. Only occasional brief episodes that occur with exertion. No sustained events that he is aware of. - Continue metoprolol and Eliquis at current doses. - He no longer qualifies for financial assistance for Eliquis, he has been paying $700 a month, which she cannot afford right now. Samples provided today. He was told that he will be eligible for assistance in March. We will try to provide samples until that time. Orders: - apixaban (Eliquis) 5 MG tablet tablet; Take 1 tablet by mouth 2 (Two) Times a Day. Dispense: 84 tablet; Refill: 0 3. MARK (obstructive sleep apnea) Assessment & Plan: He is doing very well on BiPAP therapy with excellent control and compliance. Download reviewed andinterpreted today. Compliance is 100%, average use per night is 9 hours and 14 minutes. AHI 0.2. -Cannot new PAP therapy at current settings - Continue to wear chinstrap to help prevent leaking - Do not drive if sleepy 4. Hypertension, essential Assessment & Plan: Hypertension is stable and controlled Continue current treatment regimen. Dietary sodium restriction. Weight loss. Regular aerobic exercise. Blood pressure will be reassessed in 6 months Recommendations: ER if symptoms increase and Report if any new/changing symptoms immediately Follow Up No follow-ups on file. Patient was given instructions and counseling regarding his condition or for health maintenance advice. Please see specific information pulled into the AVS if appropriate. documented in this encounter Plan of Treatment Upcoming Encounters Date Type Department Care Team (Late st Contact Info) Description 04/19/2025 10:45 AM EST Office Visit [facility] [address] [place] [phone] Alicia Thomas MD [address] [place], [place] [id number] documented as of this encounter Visit Diagnoses Diagnosis Coronary artery disease involving quileute coronary artery of quileute heart without angina pectoris- Primary Paroxysmal atrial fibrillation Atrial fibrillation MARK (obstructive sleep apnea) Obstructive sleep apnea (adult) (pediatric) Hypertension, essential Unspecified essential hypertension documented in this encounter Care Teams Jewelry Engraver Relationship Specialty Start Date End Date Nia Mccord APRN [address] [place] [id number] PCP - General Nurse Practitioner 06/28/22 documented as of this encounter
[2024-11-28] VITALS (9 sets, daily range): BP systolic 126–146; BP diastolic 56–76; PULSE 61–116; RESP 16–18; TEMP 36.7–37; O2SAT 96–98; BMI 39.5
--- OUTSIDE RECORDS SUMMARY | 2024-11-28 12:04 | XMS_ITS | Data Portability ---
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 Cystoscopy to evaluate lower urinary tract. [email or web address] Not available 09/23/2020 13:10:16 10/04/2020 10/04/2020 DATE OF PROCEDUR E: 10/04/20 PROCEDURE PERFORMED: Cystourethroscopy SURGEON: Caden Cavazos M.D. ANESTHESIA: Local BLOOD LOSS: None PREOPERATIVE INDICATIONS: Hematuria, Urethral stricture POSTOPERATIVE INDICATIONS: Hematuria, Urethral stricture DESCRIPTION OF PROCEDURE: Patient was correctly identified in preoperative holding area. Informed consent was obtained. Risks and benefits were reviewed with patient. Patient was taken to procedure room and positioned supine position. All pressure points padded. Proper timeout procedure completed. Genitourinary area prepped and draped in the normal sterile fashion. Lidocaine jelly instilled for local analgesia. Flexible cystoscope advanced through the urethra. Bladder mucosa without evidence of erythema, papillary bladder mass, foreign body. Ureteral orifices in normal anatomic position. 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 The cystoscope was withdrawn atraumatically. Patient tolerated procedure well. DISPOSITION: Patient was taken to the recovery in stable condition. Discharged home with instructions for outpatient follow-up. [email or web address] Not available 10/04/2020 14:01:18 11/03/2020 11/03/2020 Monitor lower urinary symptoms. [email or web address] Not available 11/05/2020 15:07:28 06/07/2022 06/07/2022 Urine for cultur e and sensitivity. We will order 14 Bengali coud catheters, 10/month, for incomplete emptying of urinary bladder related to BPH. Medical management of erectile dysfunction with tadalafil as needed. [email or web address] Not available 06/07/2022 16:36:36 10/22/2024 10/22/2024 - 74-year-old ma le with benign prostatic hyperplasia and urethral stricture disease, here for follow-up. - Uses 14-inch Coude catheter occasionally for urethral stricture. - Nocturia once nightly, denies dysuria or hematuria. - Tadalafil 20 mg for erectile dysfunction, soreness from catheter use, avoids daily catheterization. Benign Prostatic Hyperplasia: - Monitor symptoms, manage with catheterization. Urethral Stricture Disease: - Use 14-inch Coude catheter as needed, avoid daily use. Erectile Dysfunction: - Continue tadalafil 20 mg as needed. [email or web address] Not available 10/25/2024 10:44:25 Plan of Treatment Reminders Order Date Submit Date Provider Last Modified By Organization Details Last Modified Time Details Appointments RECHECK 2025 01:00P Yolanda CAVAZOS MD Not available Not available Not available Lab urinaly sis panel, auto 2024 025 [facility] With [address], [place], [address], 10/25/2024 10:44:26 urinaly sis panel, auto 2022 023 [email or web address] [facility] With [address] [place], [place], [address], 06/12/2022 08:58:09 culture , urine 2022 023 [facility], [address] [place] [address], [address], 06/12/2022 08:58:09 urinaly sis panel, auto 2020 021 [facility] With [facility], [address] [place] [address] [address] [place], [place], [address], 11/05/2020 15:07:05 urinaly sis panel, auto 2020 021 [email or web address] [facility] With [facility], [address] [place] [address] [address] [place], [place], [address], 09/22/2020 16:22:15 Referral None recorde d. Procedures None recorde d. Surgeries cystosc opy (SURG) 2020 021 [email or web address], [address] [facility], [facility] [address], [place], [address], 09/27/2020 11:29:06 Imaging None recorde d. Medication Orders tadalaf il 20 mg tablet 2024 025 [facility] [id number], [address], [place], [address], 10/22/2024 15:47:57 tadalaf il 20 mg tablet 2022 023 [facility] [id number], [address], [place], [address], 06/07/2022 16:36:42 alfuzos in ER 10 mg tablet, extende d release 24 hr 2020 021 [facility], [facility], [place], [address], 11/05/2020 15:05:42 Patient TargetsNo targets recorded. Patient Instructions Encounter Date Encounter Id Patient Instructions Last Modified By Organization Details Last Modified Time 11/03/2020 [id number] learning about healthy weight [email or web address] Not available 11/05/2020 15:07:05 10/22/2024 [id number] learning about healthy weight [email or web address] Not available 10/25/2024 10:44:25 - Continue using the 14-inch Coude catheter as needed, but avoid daily use to prevent soreness. - Take tadalafil 20 mg as needed for erectile dysfunction. - Monitor urinary symptoms and report any changes or concerns. [email or web address] Not available 10/22/2024 16:01:25 Reason for Referral None Reported. Results Created Date Observation Date Name Description Value Unit Range Abnormal Flag Note LastModifiedBy Organization Detail LastModifiedTime 11/04/19 21 11/03/2020 urina lysis panel , auto Unknown Analyte Clean Catch Not Available [facility] With [address], [place], [address], 11/03/2020 16:43:32 11/04/19 21 11/03/2020 urina lysis panel , auto Unknown Analyte Yellow Not Available [facility] With [address] [place], [place], [address], 11/03/2020 16:43:32 11/04/19 21 11/03/2020 urina lysis panel , auto Unknown Analyte Clear Not Available [facility] With [address] [place], [place], [address], 11/03/2020 16:43:32 11/04/19 21 11/03/2020 urina lysis panel , auto Unknown Analyte 1.020 Not Available [facility] With [address] [place], [place], [address], 11/03/2020 16:43:32 11/04/19 21 11/03/2020 urina lysis panel , auto Unknown Analyte 1.003- 1.035 Not Available [facility] With [address] [place], [place], [address], 11/03/2020 16:43:32 11/04/19 21 11/03/2020 urina lysis panel , auto Unknown Analyte 5.0 Not Available [facility] With [address] [place], [address], 11/03/2020 16:43:32 11/04/19 21 11/03/2020 urina lysis panel , auto Unknown Analyte 5.0-8. 0 Not Available [facility] With [address] [place], [address], 11/03/2020 16:43:32 11/04/19 21 11/03/2020 urina lysis panel , auto Unknown Analyte Negati ve Not Available [facility] With [address] [place], [address], 11/03/2020 16:43:32 11/04/19 21 11/03/2020 urina lysis panel , auto Unknown Analyte Negati ve Not Available [facility] With [address] [place], [address], 11/03/2020 16:43:32 11/04/19 21 11/03/2020 urina lysis panel , auto Unknown Analyte Negati ve Not Available [facility] With [address] [place], [address], 11/03/2020 16:43:32 11/04/19 21 11/03/2020 urina lysis panel , auto Unknown Analyte Negati ve Not Available [facility] With [address] [place], [address], 11/03/2020 16:43:32 11/04/19 21 11/03/2020 urina lysis panel , auto Unknown Analyte Negati ve Not Available [facility] With [address] [place], [address], 11/03/2020 16:43:32 11/04/19 21 11/03/2020 urina lysis panel , auto Unknown Analyte Negati ve Not Available [facility] With [address] [place], [place], [address], 11/03/2020 16:43:32 11/04/19 21 11/03/2020 urina lysis panel , auto Unknown Analyte 250 mg/dl Not Available [facility] With [address] [place], [address], 11/03/2020 16:43:32 11/04/19 21 11/03/2020 urina lysis panel , auto Unknown Analyte Normal Not Available [facility] With [address] [place], [address], 11/03/2020 16:43:32 11/04/19 21 11/03/2020 urina lysis panel , auto Unknown Analyte 15 mg/dl (Sm) Not Available [facility] With [address] [place], [address], 11/03/2020 16:43:32 11/04/19 21 11/03/2020 urina lysis panel , auto Unknown Analyte Negati ve Not Available [facility] With [address] [place], [address], 11/03/2020 16:43:32 11/04/19 21 11/03/2020 urina lysis panel , auto Unknown Analyte 4 mg/dl Not Available [facility] With [address] [place], [address], 11/03/2020 16:43:32 11/04/19 21 11/03/2020 urina lysis panel , auto Unknown Analyte Normal 1 mg/dl Not Available [facility] With [address] [place], [address], 11/03/2020 16:43:32 11/04/19 21 11/03/2020 urina lysis panel , auto Unknown Analyte 1 mg/dl (+) Not Available [facility] With [address] [place], [address], 11/03/2020 16:43:32 11/04/19 21 11/03/2020 urina lysis panel , auto Unknown Analyte Negati ve Not Available [facility] With [address] [place], [address], 11/03/2020 16:43:32 11/04/19 21 11/03/2020 urina lysis panel , auto Unknown Analyte Negati ve Not Available [facility] With [address] [place], [address], 11/03/2020 16:43:32 11/04/19 21 11/03/2020 urina lysis panel , auto Unknown Analyte Negati ve Not Available [facility] With [address] [place], [address], 11/03/2020 16:43:32 09/23/19 21 09/22/2020 urina lysis panel , auto Unknown Analyte Clean Catch Not Available [facility] With [address] [place], [address], 09/22/2020 15:53:47 09/23/19 21 09/22/2020 urina lysis panel , auto Unknown Analyte Yellow Not Available [facility] With [address] [place], [address], 09/22/2020 15:53:47 09/23/19 21 09/22/2020 urina lysis panel , auto Unknown Analyte Clear Not Available [facility] With [address] [place], [place], [address], 09/22/2020 15:53:47 09/23/19 21 09/22/2020 urina lysis panel , auto Unknown Analyte 1.020 Not Available [facility] With [address] [place], [place], [address], 09/22/2020 15:53:47 09/23/19 21 09/22/2020 urina lysis panel , auto Unknown Analyte 1.003- 1.035 Not Available [facility] With [address] [place], [place], [address], 09/22/2020 15:53:47 09/23/19 21 09/22/2020 urina lysis panel , auto Unknown Analyte 5.0 Not Available [facility] With [address] [place], [place], [address], 09/22/2020 15:53:47 09/23/19 21 09/22/2020 urina lysis panel , auto Unknown Analyte 5.0-8. 0 Not Available [facility] With [address] [place], [place], [address], 09/22/2020 15:53:47 09/23/19 21 09/22/2020 urina lysis panel , auto Unknown Analyte Negati ve Not Available [facility] With [address] [place], [place], [address], 09/22/2020 15:53:47 09/23/19 21 09/22/2020 urina lysis panel , auto Unknown Analyte Negati ve Not Available [facility] With [address] [place], [place], [address], 09/22/2020 15:53:47 09/23/19 21 09/22/2020 urina lysis panel , auto Unknown Analyte Negati ve Not Available [facility] With [address] [place], [address], 09/22/2020 15:53:47 09/23/19 21 09/22/2020 urina lysis panel , auto Unknown Analyte Negati ve Not Available [facility] With [address] [place], [address], 09/22/2020 15:53:47 09/23/19 21 09/22/2020 urina lysis panel , auto Unknown Analyte Negati ve Not Available [facility] With [address] [place], [address], 09/22/2020 15:53:47 09/23/1909/22/2020 urina lysis panel , auto Unknown Analyte Negati ve Not Available [facility] With [address] [place], [address], 09/22/2020 15:53:47 09/23/19 21 09/22/2020 urina lysis panel , auto Unknown Analyte >1000 mg/dl Not Available [facility] With [address] [place], [address], 09/22/2020 15:53:47 09/23/1909/22/2020 urina lysis panel , auto Unknown Analyte Normal Not Available [facility] With [address] [place], [address], 09/22/2020 15:53:47 09/23/19 21 09/22/2020 urina lysis panel , auto Unknown Analyte Negati ve Not Available [facility] With [address] [place], [place], [address], 09/22/2020 15:53:47 09/23/19 21 09/22/2020 urina lysis panel , auto Unknown Analyte Negati ve Not Available [facility] With [address] [place], [place], [address], 09/22/2020 15:53:47 09/23/19 21 09/22/2020 urina lysis panel , auto Unknown Analyte 4 mg/dl Not Available [facility] With [address] [place], [place], [address], 09/22/2020 15:53:47 09/23/19 21 09/22/2020 urina lysis panel , auto Unknown Analyte Normal 1 mg/dl Not Available [facility] With [address] [place], [place], [address], 09/22/2020 15:53:47 09/23/19 21 09/22/2020 urina lysis panel , auto Unknown Analyte Negati ve Not Available [facility] With [address] [place], [place], [address], 09/22/2020 15:53:47 09/23/19 21 09/22/2020 urina lysis panel , auto Unknown Analyte Negati ve Not Available [facility] With [address] [place], [place], [address], 09/22/2020 15:53:47 09/23/19 21 09/22/2020 urina lysis panel , auto Unknown Analyte Negati ve Not Available [facility] With [address] [place], [place], [address], 09/22/2020 15:53:47 09/23/19 21 09/22/2020 urina lysis panel , auto Unknown Analyte Negati ve Not Available [facility] With [address] [place], [place], [address], 09/22/2020 15:53:47 10/05/19 21 10/04/2020 urina lysis panel , auto Unknown Analyte Clean Catch Not Available [facility] Schedule [address] [place], [address], 10/04/2020 14:26:00 10/05/19 21 10/04/2020 urina lysis panel , auto Unknown Analyte Yellow Not Available [facility] Schedule [address] [place], [address], 10/04/2020 14:26:00 10/05/19 21 10/04/2020 urina lysis panel , auto Unknown Analyte Clear Not Available [facility] Schedule [address] [place], [address], 10/04/2020 14:26:00 10/05/19 21 10/04/2020 urina lysis panel , auto Unknown Analyte 1.015 Not Available [facility] Schedule [address] [place], [address], 10/04/2020 14:26:00 10/05/19 21 10/04/2020 urina lysis panel , auto Unknown Analyte 5.0 Not Available [facility] Schedule [address] [place], [address], 10/04/2020 14:26:00 10/05/19 21 10/04/2020 urina lysis panel , auto Unknown Analyte Negati ve Not Available [facility] Schedule [address] [place], [address], 10/04/2020 14:26:00 10/05/19 21 10/04/2020 urina lysis panel , auto Unknown Analyte Negati ve Not Available [facility] Schedule [address] [place], [address], 10/04/2020 14:26:00 10/05/19 21 10/04/2020 urina lysis panel , auto Unknown Analyte Negati ve Not Available [facility] Schedule [address] [place], [address], 10/04/2020 14:26:00 10/05/19 21 10/04/2020 urina lysis panel , auto Unknown Analyte >1000 mg/dl Not Available [facility] Schedule [address] [place], [address], 10/04/2020 14:26:00 10/05/19 21 10/04/2020 urina lysis panel , auto Unknown Analyte 15 mg/dl (Sm) Not Available [facility] Schedule [address] [place], [address], 10/04/2020 14:26:00 10/05/19 21 10/04/2020 urina lysis panel , auto Unknown Analyte 1 mg/dl Not Available [facility] Schedule [address] [place], [address], 10/04/2020 14:26:00 10/05/19 21 10/04/2020 urina lysis panel , auto Unknown Analyte Negati ve Not Available [facility] Schedule [address] [place], [address], 10/04/2020 14:26:00 10/05/19 21 10/04/2020 urina lysis panel , auto Unknown Analyte Negati ve Not Available [facility] Schedule [address] [place], [address], 10/04/2020 14:26:00 06/07/19 23 06/07/2022 URINE CULTU RE results Sourc e: CCUR Colle cted: 06/07 16:05 Site: Shaina cesario : 06/07 18:42 URINE CULTU RE FINAL 06/11 11:44 06/11 COLON Y COUNT : 10,00 0 - 100,0 00 CFU/M L Three or more isola giovani; mixed skin cuco . Not Available [facility] [address] [place], [address], 06/11/2022 11:44:30 06/07/19 23 06/07/2022 urina lysis panel , auto Unknown Analyte Clean Catch Not Available [facility] With [address] [place], [place], [address], 06/07/2022 16:03:59 06/07/19 23 06/07/2022 urina lysis panel , auto Unknown Analyte Yellow Not Available [facility] With [address] [place], [address], 06/07/2022 16:03:59 06/07/19 23 06/07/2022 urina lysis panel , auto Unknown Analyte Clear Not Available [facility] With [address] [place], [address], 06/07/2022 16:03:59 06/07/19 23 06/07/2022 urina lysis panel , auto Unknown Analyte 1.020 Not Available [facility] With [address] [place], [address], 06/07/2022 16:03:59 06/07/19 23 06/07/2022 urina lysis panel , auto Unknown Analyte 1.003- 1.035 Not Available [facility] With [address] [place], [address], 06/07/2022 16:03:59 06/07/19 23 06/07/2022 urina lysis panel , auto Unknown Analyte 6.0 Not Available [facility] With [address] [place], [place], [address], 06/07/2022 16:03:59 06/07/19 23 06/07/2022 urina lysis panel , auto Unknown Analyte 5.0-8. 0 Not Available [facility] With [address] [place], [place], [address], 06/07/2022 16:03:59 06/07/19 23 06/07/2022 urina lysis panel , auto Unknown Analyte 500 Juliana/ul (++) Not Available [facility] With [address] [place], [address], 06/07/2022 16:03:59 06/07/19 23 06/07/2022 urina lysis panel , auto Unknown Analyte Negati ve Not Available [facility] With [address] [place], [place], [address], 06/07/2022 16:03:59 06/07/19 23 06/07/2022 urina lysis panel , auto Unknown Analyte Negati ve Not Available [facility] With [address] [place], [place], [address], 06/07/2022 16:03:59 06/07/19 23 06/07/2022 urina lysis panel , auto Unknown Analyte Negati ve Not Available [facility] With [address] [place], [address], 06/07/2022 16:03:59 06/07/19 23 06/07/2022 urina lysis panel , auto Unknown Analyte 30 mg/dl (+) Not Available [facility] With [address] [place], [address], 06/07/2022 16:03:59 06/07/19 23 06/07/2022 urina lysis panel , auto Unknown Analyte Negati ve Not Available [facility] With [address] [place], [address], 06/07/2022 16:03:59 06/07/19 23 06/07/2022 urina lysis panel , auto Unknown Analyte 250 mg/dl Not Available [facility] With [address] [place], [address], 06/07/2022 16:03:59 06/07/19 23 06/07/2022 urina lysis panel , auto Unknown Analyte Normal Not Available [facility] With [address] [place], [address], 06/07/2022 16:03:59 06/07/19 23 06/07/2022 urina lysis panel , auto Unknown Analyte Negati ve Not Available [facility] With [address] [place], [address], 06/07/2022 16:03:59 06/07/19 23 06/07/2022 urina lysis panel , auto Unknown Analyte Negati ve Not Available [facility] With [address] [place], [address], 06/07/2022 16:03:59 06/07/19 23 06/07/2022 urina lysis panel , auto Unknown Analyte 8 mg/dl Not Available [facility] With [address] [place], [address], 06/07/2022 16:03:59 06/07/19 23 06/07/2022 urina lysis panel , auto Unknown Analyte Normal 1 mg/dl Not Available [facility] With [address] [place], [address], 06/07/2022 16:03:59 06/07/19 23 06/07/2022 urina lysis panel , auto Unknown Analyte 3 mg/dl (++) Not Available [facility] With [address] [place], [address], 06/07/2022 16:03:59 06/07/19 23 06/07/2022 urina lysis panel , auto Unknown Analyte Negati ve Not Available [facility] With [address] [place], [address], 06/07/2022 16:03:59 06/07/19 23 06/07/2022 urina lysis panel , auto Unknown Analyte Negati ve Not Available [facility] With [address] [place], [address], 06/07/2022 16:03:59 06/07/19 23 06/07/2022 urina lysis panel , auto Unknown Analyte Negati ve Not Available [facility] With [address] [place], [address], 06/07/2022 16:03:59 10/23/19 25 10/22/2024 urina lysis panel , auto Unknown Analyte Clean Catch Not Available [facility] With [address] [place], [address], 10/22/2024 18:11:04 10/23/19 25 10/22/2024 urina lysis panel , auto Unknown Analyte Yellow Not Available [facility] With [address] [place], [address], 10/22/2024 18:11:04 10/23/19 25 10/22/2024 urina lysis panel , auto Unknown Analyte Clear Not Available [facility] With [address] [place], [address], 10/22/2024 18:11:04 10/23/19 25 10/22/2024 urina lysis panel , auto Unknown Analyte 1.015 Not Available [facility] With [address] [place], [address], 10/22/2024 18:11:04 10/23/1910/22/2024 urina lysis panel , auto Unknown Analyte 1.003 - 1.030 Not Available [facility] With [address] [place], [address], 10/22/2024 18:11:04 10/23/19 25 10/22/2024 urina lysis panel , auto Unknown Analyte 5.0 Not Available [facility] With [address] [place], [address], 10/22/2024 18:11:04 10/23/19 25 10/22/2024 urina lysis panel , auto Unknown Analyte 5.0 - 8.0 Not Available [facility] [place] [address] [place], [address], 10/22/2024 18:11:04 10/23/19 25 10/22/2024 urina lysis panel , auto Unknown Analyte Negati ve Not Available [facility] Extended Services With [address] [place], [address], 10/22/2024 18:11:04 10/23/19 25 10/22/2024 urina lysis panel , auto Unknown Analyte Negati ve Not Available [facility] With [address], [place], [address], 10/22/2024 18:11:04 10/23/19 25 10/22/2024 urina lysis panel , auto Unknown Analyte Negati ve Not Available [facility] With [address] [place], [address], 10/22/2024 18:11:04 10/23/19 25 10/22/2024 urina lysis panel , auto Unknown Analyte Negati ve Not Available [facility] With [address] [place], [address], 10/22/2024 18:11:04 10/23/19 25 10/22/2024 urina lysis panel , auto Unknown Analyte Negati ve Not Available [facility] With [address] [place], [address], 10/22/2024 18:11:04 10/23/19 25 10/22/2024 urina lysis panel , auto Unknown Analyte Negati ve Not Available [facility] With [address] [place], [address], 10/22/2024 18:11:04 10/23/19 25 10/22/2024 urina lysis panel , auto Unknown Analyte 100 mg/dL Not Available [facility] With [address] [place], [address], 10/22/2024 18:11:04 10/23/19 25 10/22/2024 urina lysis panel , auto Unknown Analyte Normal Not Available [facility] Extended Services With [address] [place], [address], 10/22/2024 18:11:04 10/23/19 25 10/22/2024 urina lysis panel , auto Unknown Analyte Negati ve Not Available [facility] With [address] [place], [address], 10/22/2024 18:11:04 10/23/19 25 10/22/2024 urina lysis panel , auto Unknown Analyte Negati ve Not Available [facility] With [address] [place], [address], 10/22/2024 18:11:04 10/23/19 25 10/22/2024 urina lysis panel , auto Unknown Analyte 4 mg/dL Not Available [facility] With [address] [place], [address], 10/22/2024 18:11:04 10/23/19 25 10/22/2024 urina lysis panel , auto Unknown Analyte Normal Not Available [facility] Extended Services With [address] [place], [address], 10/22/2024 18:11:04 10/23/19 25 10/22/2024 urina lysis panel , auto Unknown Analyte Negati ve Not Available [facility] With [address] [place], [address], 10/22/2024 18:11:04 10/23/19 25 10/22/2024 urina lysis panel , auto Unknown Analyte Negati ve Not Available [facility] Services With [address] [place], [address], 10/22/2024 18:11:04 10/23/19 25 10/22/2024 urina lysis panel , auto Unknown Analyte Negati ve Not Available [facility] Extended Services With [address], [place], [address], 10/22/2024 18:11:04 10/23/19 25 10/22/2024 urina lysis panel , auto Unknown Analyte Negati ve Not Available [facility] Extended Services With [address], [place], [address], 10/22/2024 18:11:04 Result Notes None recorded. Procedures Surgical History Date Name Laterality Status Provider Name and Address Organization Details Recorded Time Kidney Stone Removal completed [facility] 06/12/2018 15:45:31 Imaging Results None recorded. Procedure Notes None recorded. Medical Equipment None Reported. Allergies No known drug allergies Medications Name Sig Start Date Stop Date Status Note LastModified by Organization Details LastModified Time Neurontin 300 mg capsule Take 1 capsule 3 times a day by oral route. active Not Available Not Available No t Available Diflucan 150 mg tablet Take 1 tablet every day by oral route for 1 day. 08/07 completed Not Available Not Available Not Available tamsulosin 0.4 mg capsule Take 1 capsule every day by oral route for 90 days. 11/05 completed Not Available Not Available Not Available metformin 1,000 mg tablet Take 1 tablet twice a day by oral route. active Not Available Not Available No t Available clotrimazol e-betametha sone 1 %-0.05 % topical cream APPLY TO THE AFFECTED AND SURROUNDI NG AREAS OF SKIN BY TOPICAL ROUTE 2 TIMES PER DAY IN THE MORNING AND EVENING FOR 2 WEEKS 08/07 completed Not Available Not Available Not Available omeprazole 20 mg capsule,del ayed release Take 1 capsule every day by oral route. active Not Available Not Available No t Available furosemide 20 mg tablet Take 1 tablet every day by oral route. 06/07 completed Not Available Not Available Not Available cefuroxime axetil 500 mg tablet Take 1 tablet every 12 hours by oral route for 10 days. 06/07 completed Not Available Not Available Not Available losartan 100 mg tablet Take 1 tablet every day by oral route. active Not Available Not Available No t Available finasteride 5 mg tablet Take 1 tablet every day by oral route for 90 days. 11/05 completed Not Available Not Available Not Available Benadryl 25 mg capsule Take 2 capsules every 4 hours by oral route. 06/07 completed Not Available Not Available Not Available Asprin Ec Low Dose 81 mg tablet,long yed release Take 1 tablet every day by oral route. active Not Available Not Available No t Available alfuzosin ER 10 mg tablet,exte nded release 24 hr Take 1 tablet every day by oral route for 90 days. 11/05 completed Not Available Not Available Not Available tadalafil 20 mg tablet 1 tablet as needed, 1 hour prior to activity 2024 active Not Available Not Available Not Avai lable atorvastati n active Not Available Not Available Not Available Lasix active Not Available Not Availa ble Not Available montelukast active Not Available Not A vailable Not Available glipizide ER 10 mg 24 hr tablet,exte nded release Take 1 tablet every day by oral route. active Not Available Not Available No t Available Eliquis active Not Available Not Avail able Not Available Tylenol-Cod eine active Not Available Not Available Not Available Basaglar KwikPen U-100 Insulin active Not Available Not Available Not Available Ozempic active Not Available Not Avail able Not Available Vitals Date Recorded Body height Body mass index (BMI) Body weight Provider Name and Address Organization Details Last Updated DateTime 06/07/2022 172.72 cm 41.1 kg/m2 824698.94 g Terri Duncant [facility] 06/07/2022 15:57:27 Date Recorded Body height Body mass index (BMI) Body weight Provider Name and Address Organization Details Last Updated DateTime 09/22/2020 172.72 cm 41.1 kg/m2 086552.94 g Deandra Aledo [facility] 09/22/2020 15:52:40 Date Recorded Body height Body mass index (BMI) Body weight Provider Name and Address Organization Details Last Updated DateTime 10/22/2024 172.72 cm 41.1 kg/m2 342622.94 g Terri Blunt [facility] 10/22/2024 18:10:32 Date Recorded Body height Body mass index (BMI) Body weight Provider Name and Address Organization Details Last Updated DateTime 11/03/2020 172.72 cm 41.1 kg/m2 003876.94 g Terri Blunt [facility] 11/03/2020 16:42:43 Social History Question Answer Notes LastModified by Organizat ion Details LastModified Time Tobacco Smoking Status Never Smoker Not Available [facility] 03/15/2020 03:47:32 How Much Tobacco Do You Chew? None Information not available 11/03/2020 Marital Status win Informatio n not available 06/12/2018 What Was The Date Of Your Most Recent Tobacco Screening? 10/22/2024 Information not available 10/22/2024 Sex: Unknown Functional Status Question Answer Note LastModified by Organization D etails LastModified Time What is your level of alcohol consumption? None [id number] Information not available 03/15/2020 Mental Status None recorded. Family History Relationship Description Onset Age of this Age Resolved Age Notes LastModified by Organization Details LastModified Time Unspecified Relation Diabetes mellitus win Not available 2018 15:45:00 Medical History Condition Response Allergies/Hayfever Y Diabetes Y False Teeth Y Sleep Apnea Y Anesthesia Complications Y Ulcers Y Heart Attack ([place]) Y Past Encounters Encounter ID Performer Location Encounter Start Date Encounter Closed Date Diagnosis/Indication Diagnosis SNOMED-CT Code Diagnosis ICD10 Code Diagnosis Note [id number] CADEN CAVAZOS MD [facility] [address] [place] [address],[place] [address] 06/12/2018 14:06:36 06/23/2018 07:41:56 Balanitis 39318911 N48.1 Urethral stricture 62510 002 N35.92 Urinary tr act infectious disease 94101038 N39.0 [place] hematuria 68362319 5 R31.0 [id number] CADEN CAVAZOS MD SURGERY SCHEDULE [address] [place] [address] 06/26/2018 06:17:57 06/26/2018 06:20:05 [id number] CADEN CAVAZOS MD [facility] [address] ,[place] [address] 8 08/07/2018 13:06:02 08/18/2018 10:04:43 Benign prostatic hyperplasia with outflow obstruction 694404939 N40.1 [id number] CADEN CAVAZOS MD [facility] [address],[place] [address] 8 09/18/2018 13:48:29 10/01/2018 10:42:56 Urinary tract infectious disease 06301297 N39.0 Benign pro static hyperplasia with outflow obstruction 637510139 N40.1 [id number] CADEN CAVAZOS MD [facility] [address],[place] [address] 8 11/20/2018 13:53:26 12/01/2018 08:22:10 Urinary tract infectious disease 46207024 N39.0 History of urethral stricture 016441932 Z87.022 [id number] CADEN CAVAZOS MD [facility] [address],[place] [address] 8 09/22/2020 13:55:46 09/28/2020 11:32:27 Benign prostatic hyperplasia with outflow obstruction 989920287 N40.1 [place] hematuria 59201020 5 R31.0 History of urethral stricture 416045386 Z87.082 [id number] CADEN CAVAZOS MD SURGERY SCHEDULE [address] [place] [address] 10/04/2020 12:23:52 10/04/2020 12:25:03 [id number] CADEN CAVAZOS MD [facility] [address],[place] [address] 8 11/03/2020 15:15:14 11/04/2020 10:07:08 Benign prostatic hyperplasia with outflow obstruction 751252247 N40.1 Blood in urine 56366876 R31.9 [id number] CADEN CAVAZOS MD [facility] [address],[place] [address] 8 06/07/2022 14:36:56 06/08/2022 04:34:15 Urinary tract infectious disease 86655315 N39.0 Benign pro static hyperplasia with outflow obstruction 083473275 N40.1 Primary er ectile dysfunction 203677363 N52.9 Incomplete emptying of urinary bladder 628706040 R39.14 [id number] CADEN CAVAZOS MD [facility] [address] [place] [address],[place] [address] 10/22/2024 15:46:25 10/22/2024 18:59:04 Primary erectile dysfunction 492936803 N52.9 Benign pro static hyperplasia with outflow obstruction 432053487 N40.1 N13.8 Male ureth ral stricture 2557578211 4570033 N35.919 Health Concerns Section Related Observation LastModified by Organization Detai ls LastModified Time None Recorded Concern Status LastModified by Organization Details LastModified Time None Recorded Advance Directives Directive None Recorded Payers Insurance Date Sequence Insurance Name Policy Number Policy Thomas Covered Member ID Thomas Member ID Guarantor Name 10/22/2024 1 [place]ARE[place] ([place]ICARE[place] Danish Jenkins Yanni [id number] Danish Jenkins Yanni 10/22/2024 2 [employer] (MEDICARE SUPPLEMENT) Danish Jenkins Yanni [id number] Danish Jenkins Yanni 10/22/2024 2 [employer] - [employer] (MEDICARE SUPPLEMENT) Danish Jenkins Yanni [id number] Danish Sifuenteslly Notes Date Note Type Note Provider Name and Address Organization Details Recorded Time 09/22/2020 text/html 70-year-old male in the office for follow-up evaluation of benign prostatic hyperplasia with lower urinary symptoms. He had recent episode of gross hematuria. He reports nocturia once nightly. He has hesitancy. No dysuria. He has difficulties obtaining and maintaining an erection. He has history of intermittent catheterization but has not catheterized recently. He has history of stricture disease. PSA from 09/16/20 was normal at 1.5. CADEN CAVAZOS MD [facility] [place], [address], [facility] 09/23/2020 13:10:56 11/03/2020 text/html 70-year-old male in the office for follow-up evaluation of cystourethroscopy for evaluation hematuria and urethral stricture disease. Force of stream is intermittent. He voids every 2 hours nocturia once nightly. No gross hematuria or dysuria. He discontinued alfuzosin secondary to worsened A. fib symptoms. CADEN CAVAZOS MD [address] [place] [address], [address], [facility] 11/05/2020 15:07:57 06/07/2022 text/html 72-year-old male in the office for follow-up evaluation of benign prostatic hyperplasia, history of urethral stricture disease, and incomplete emptying of urinary bladder. He performs bladder catheterization with a 14 Bengali coud catheter due to BPH and incomplete emptying of bladder. He performes catheterization approximately once daily. He voids every 1-2 hours with nocturia once nightly. He has occasional hesitancy. No gross hematuria or dysuria. He has erectile dysfunction with difficulties obtaining and maintaining an erection. Vivien son, [facility] 11/26/2022 11:12:48 10/22/2024 text/html The patient is a 74-year-old male presenting with a follow-up evaluation for benign prostatic hyperplasia and urethral stricture disease. He uses a 14-inch Coude catheter for urethral stricture disease, performing catheterization occasionally to relieve blockages and facilitate bladder emptying. Nocturia occurs once nightly, and he denies dysuria or hematuria. Tadalafil 20 mg is used for erectile dysfunction. He reports occasional soreness reported from catheter use, leading to avoidance of daily catheterization. CADEN CAVAZOS MD [address] [place] [address] [place], [address], [facility] 10/25/2024 10:44:47
--- OUTSIDE RECORDS SUMMARY | 2024-11-28 12:04 | XMS_ITS | Encounter Summary ---
Author Organization [facility] Address [address] [place] [address] Care Team Providers Care Conductor Orchestra Name Role Phone Nia Mccord KIRAN Primary Care Provi manda Reason for Visit * Reason Onset Date Comments MEGAN-RETURNING CALL 11/27/2024 Encounter Details Date Type Department Care Team (Late st Contact Info) Description 11/27/2024 Telephone [facility] [address] [place] [address] Alicia Thomas MD [address] [place] [address] MEGAN-RETURNING CALL Social History Tobacco Use Types Packs/Day Years [...] on file documented as of this encounter Miscellaneous Notes * Telephone Encounter - Sejal Brower RegSched Rep - 11/27/2024 3:12 PM EDT Patient will come in after his trip to [place]. It will be end of November/first of December for nurse visit EKG. No date has been set with [facility] Shepard yet. * Telephone Encounter - Cary Milian RegSched Rep - 11/27/2024 3:08 PM EDT Caller: Danish Liao Relationship to patient: Self Best call back number: [phone] Patient is needing: RETURNING CALL TO MEGAN. WT TO OFFICE * Telephone Encounter - Megan Rosenberg MA - 11/27/2024 2:26 PM EDT LVM for patient to call back to setup appt for EKG. * Telephone Encounter - Earle Braga CMA - 11/27/2024 1:13 PM EDT Any new symptoms since last OV such as chest pain SOA? NO Any worsening of edema or worsening palpitations? NO Any major medical issues since last OV we need to know? NO Is the patient on Eliquis, xarelto, pradaxa? ELIQUIS Is the patient on aspirin? NO Is the patient on brilinta (ticagrelor), plavix (clopidogrel), prasugrel (effient)? NO Is the patient on medications like mounjaro or ozempic? NO Last EKG? 03/30/2024 Last stress test? 04/16/2024 Last echo? 01/30/2023 Last heart cath or CCTA? N/A Last OV? 10/19/2024 [facility] REQUESTING CLEARANCE FOR PATIENT TO STOP ELIQUIS FOR EPIDURAL STEROID INJECTION * Telephone Encounter - Ania Yeager RegSched Rep - 11/27/2024 12:01 PM EDT [facility] IS REQUESTING A MEDICATION CLEARANCE(ELIQUIS) FOR AN EPIDURAL STEROID INJECTION. documented in this encounter Plan of Treatment Upcoming Encounters Date Type Department Care Team (Late st Contact Info) Description 04/19/2025 10:45 AM EST Office Visit [facility] [address] [place] [id number] Alicia Thomas MD [address] [place] [address] documented as of this encounter Visit Diagnoses Not on filedocumented in this encounter Care Teams Conductor Orchestra Relationship Specialty Start Date End Date Nia Mccord APRN [address] [place] [address] PCP - General Nurse Practitioner 06/28/22 documented as of this encounter
--- OUTSIDE RECORDS SUMMARY | 2024-11-28 12:04 | XMS_ITS | Clinical Summary ---
Author Organization [facility] Address [address] [place], [place] [id number] Care Team Providers Care Crushing Machine Operator Name Role Phone Rajan Bambi Guerrero APRN Primary Care Provider [phone] Allergies No known active allergies Medications Aspirin 81 MG capsule 1 (one) time each day. Active glipiZIDE XL (Glucotrol XL) 10 MG 24 hr tablet Take 10 mg by mouth 2 (two) times a day. Active Eliquis 5 MG tablet 04/29/2021 Active atorvastatin (Lipitor) 20 MG tablet 05/03/2021 Active furosemide (Lasix) 20 MG tablet As needed 09/09/2020 Active gabapentin (Neurontin) 300 MG capsule Take 300 mg by mouth every night. 01/20/2021 Active OneTouch Verio test strip USE 1 STRIP TO CHECK GLUCOSE TWICE DAILY 05/04/2021 Active Basaglar KwikPen 100 UNIT/ML injection 05/03/2021 Active B-D UF III MINI PEN NEEDLES 31G X 5 MM [facility] 05/03/2021 Active Lancets (OneTouch Delica Plus [id number]) [facility] 10/19/2020 Act amos losartan (Cozaar) 50 MG tablet 05/03/2021 Active metFORMIN (Glucophage) 1000 MG tablet Take 1,000 mg by mouth 2 (two) times a day with meals. Active montelukast (Singulair) 10 MG tablet As needed 01/20/2021 Active metoprolol succinate XL (Toprol-XL) 25 MG 24 hr tablet 04/28/2021 Act amos omeprazole (PriLOSEC) [address] capsule 1 capsule 1 (one) time each day. Active diphenhydrAMINE (Benadryl Allergy) 25 MG capsule 2 capsules every 4 (four) hours. Prn Active fluticasone (Flonase) 50 MCG/ACT nasal spray 05/03/2021 Active Zinc 50 MG capsule Take 50 mg by mouth 1 (one) time each day. Active VITAMIN D PO Take by mouth. One daily Active ascorbic acid (Vitamin C ER) 500 MG ER tablet Take 500 mg by mouth 1 (one) time each day. Active Active Problems Problem Noted Date Diagnosed Date Hyperthyroidism 05/18/2021 Morbid obesity 05/18/2021 Hypertension 05/18/2021 Atrial fibrillation 05/18/2021 Frequent UTI 05/18/2021 Resolved Problems Problem Noted Date Diagnosed Date Resolved Date Pituitary adenoma 05/18/2021 05/18/2021 Family History Medical History Relation Name Comments Diabetes type II Mother Relation Name Status Comments Mother Social History Tobacco Use Types Packs/Day Years Used Date Smoking Tobacco: Never Smokeless Tobacco: Never Alcohol Use Standard Drinks/Week Comments Never 0 (1 standard drink = 0.6 oz pur e alcohol) Sex and Gender Information Value Date Recorded Sex Assigned at Not on file Legal Sex Male 8:31 PM EDT Gender Identity Not on file Sexual Orientation Not on file Last Filed Vital Signs Vital Sign Reading Time Taken Comments Blood Pressure 149/79 05/17/2021 1:28 PM EST Pulse 75 05/17/2021 1:28 PM EST Temperature - - Respiratory Rate - - Oxygen Saturation - - Inhaled Oxygen Concentration - - Weight 124 kg (273 lb 9.5 oz) 05/17/2021 1:28 PM EST Height 172.7 cm (5' 8 ) 05/17/2021 1:28 PM EST Body Mass Index 41.6 05/17/2021 1:28 PM EST Plan of Treatment Health Maintenance Due Date Last Done Comments [facility]-Depression Screening 1950 [facility]-Infant/Child/Adol SDOH Screenings 1950 [facility]- SDOH Screenings 1969 [facility]-Adult SDOH Screenings 1969 [facility]-DTaP,Tdap,and Td Vaccine s (1 - Tdap) 1970 CT Colonography 01/29/1996 Colonoscopy 01/29/1996 FIT-DNA 01/29/1996 FIT 01/29/1996 FOBT 01/29/1996 Sigmoidoscopy 01/29/1996 [facility]-Colorectal Cancer Screening 01/29/1996 [facility]-Zoster Vaccines (1 of 2) 2001 [facility]-Pneumococcal Vaccine: 50 + Years (2 of 2 - PPSV23) 03/10/2021 03/10/2020 [id number] Vaccine (2 - 20 24-25 season) 2024 08/12/2020 [facility]-Influenza Vaccine (#1) 2025 03/10/2020 [facility]-RSV Vaccine: 60+ Years o r (1 - 1-dose 75+ series) 2026 HPV Vaccines Aged Out No longer eligi ble based on patient's age to complete this topic [facility]-HIB Vaccines Aged Out No longer e ligible based on patient's age to complete this topic [facility]-Hepatitis A Vaccines Aged Out No longer eligible based on patient's age to complete this topic [facility]-IPV Vaccines Aged Out No longer e ligible based on patient's age to complete this topic [facility]-Rotavirus Vaccines Aged Out No lo nger eligible based on patient's age to complete this topic [facility] Care Teams Crushing Machine Operator Relationship Specialty Start Date End Date Bambi Tolentino APRN [address] [place] [id number] PCP - General 05/17/21
--- OUTSIDE RECORDS SUMMARY | 2024-11-28 12:04 | XMS_ITS | Continuity of Care Document ---
Author Organization [facility]- [facility] Address [address] [address] Care Team Providers Care Resident Care Aide Name Role Phone THOMAS LAL Primary Care Provider Assessment No assessment recorded. Plan of Treatment Reminders Order Date Submit Date Provider Last Modified By Organization Details Last Modified Time Details Appointments FOLLOW UP 2024 10:30A M THOMAS LAL NP Not available Not available Not available Lab culture, urine 2024 025 [facility] (Laboratory), [address] [place], [address], 10/09/2024 06:12:21 CMP, serum or plasma 2024 025 [facility] (Laboratory), [address] [place], [address], 10/08/2024 13:34:09 hemoglobi n A1c + average glucose, QN, blood [email or web address] [place] [address] (Laboratory), [address] [place], [address], 10/15/2024 08:20:22 Referral None recorded. Procedures None recorded. Surgeries None recorded. Imaging None recorded. Medication Orders fluticaso ne propionat e 50 mcg/actua tion nasal spray,chris pension 2024 025 [facility], [address] [place], [address], 10/08/2024 11:49:17 insulin glargine (U-100) 100 unit/mL (3 mL) subcutane ous pen 2024 025 [facility] [id number], [address], [place], [address], 10/08/2024 11:49:18 Patient TargetsNo targets recorded. Patient InstructionsNo instructions recorded. Reason for Referral None Reported. Problems Name Problem SNOMED Code Status Onset Date Resolution Date Notes Provider Name and Address Organization Details Recorded Time Myocardial infarction 66194906 Active 2021 Jayjay Braga null, [place] - [facility] - [place] & [place] 4 10:33:40 History of urinary stone 435900717 Active 2021 Jayjay Braga [place] [facility] [place] [facility] [place] 4 10:33:25 Diabetes mellitus 02618433 Active 2021 Jayjay Braga null, [place] [facility] [place] 4 10:33:18 Hyperlipidemia 78229801 Active 2021 Jayjay Braga null[place] [facility] [place] 4 10:33:28 Obesity 396497614 Active 2021 Jayjay Braga null[place] [facility] [place] 4 10:33:46 Hypertensive disorder 79836470 Active 2021 Jayjay Braga null[place] [facility] [place] [facility] [place] 4 10:33:30 Seasonal allergic rhinitis 950319952 Active 2021 Jayjay Braga null[place] [facility] [place] [facility] [place] 4 10:34:19 Screening for malignant neoplasm of colon Active 2022 Jayjay Braga null[place] [facility] [place] 4 10:34:15 Acute cystitis 59318835 Active 2022 Jayjay Braga null[place] [facility] [place] 4 10:33:07 Mixed hyperlipidemia 653003080 Active 2022 Jayjay Braga null[place] [facility] [place] 4 10:33:35 Uncontrolled type 2 diabetes mellitus 519753628 Active 2022 Jayjay Braga null[place] - [facility] - [facility] & [place] 4 10:34:29 Swelling of bilateral lower limbs 684954477 Active 2022 Jayjay Braga null[place] [facility] [place] 4 10:34:22 Peripheral vascular disease 694330949 Active 2022 Jayjay Braga null[place] [facility] [place] [facility] & [place] 4 10:34:12 Neuropathy 454036614 Active 2022 Jayjay Braga null[place] - [facility] - [facility] & [place] 4 10:33:44 Tubular adenomatous polyp of colon 773361529 Active 2022 Jayjay Braga null[place] [facility] [place] [facility] [place] 4 10:34:26 Internal hemorrhoids 50774896 Active 2022 Jayjay Braga null, [place] - [facility] [place] 4 10:33:33 Constipation 60659245 Active 2022 Jayjay Braga null[place] [facility] [place] [facility] [place] 4 10:33:15 Essential hypertension 42978316 Active 2023 Jayjay Braga null[place] - [facility] [place] [facility] [place] 4 10:33:22 Anemia 926719337 Active 2023 Jayjay Braga null[place] [facility] & [place] 4 10:33:09 Problem Notes None recorded. Procedures Surgical History Date Name Laterality Status Provider Name and Address Organization Details Recorded Time Medicare Annual Wellness Visit Health Risk Assessment completed Lars Gao SAMANTHA - [facility] - [place] & [place] 12/17/2023 10:37:27 Cataract Surgery completed Lars Gao SAMANTHA - [facility] - [place] [facility] [place] 12/17/2023 10:33:28 024 LASIK completed THOMAS LAL NP [address] [facility] [place], [place], [address], [place] [facility] [place] [facility] [place] 12/17/2023 11:19:34 023 Colonoscopy completed Yanna SINGH - [facility] - [place] & [place] 11/22/2023 16:27:13 023 Colonoscopy completed Yanna Rodriguezon [place] - [facility] - [place] & [place] 11/22/2023 16:26:20 021 cystourethroscopy with biopsy of ureter completed Yanna [place] - [facility] - [place] & [place] 02/12/2024 13:11:17 999 Back Surgery completed Naida SINGH - [facility] - [place] & [place] 08/06/2022 13:44:37 Angioplasty completed Naida Treadwellocque [place] - [facility] - [place] & [place] 08/06/2022 13:44:25 Imaging Results None recorded. Procedure Notes None recorded. Medical Equipment None Reported. Allergies Allergen ID Allergen Name Allergen Category Reaction Reaction Severity Criticality Documentation Date Start Date Code Code System Note Provider Name and Address Organization Details Recorded Time 34336 No known allergy (situatio n) Not available Not available Not available Not available 11/15/2022 49214 6003 SNOMED Sejal son, SAMANTH[place] - [facility] & [place] 14:24:28 No known drug allergies Medications Name Sig Start Date Stop Date Status Note LastModified by Organization Details LastModified Time compound drug 09/08 completed Not Available Not Available Not Available losartan 50 mg tablet TAKE 1 TABLET DAILY DIRECTED 2024 active Not Available Not Available Not Avai lable amoxicillin 500 mg capsule TAKE 1 CAPSULE BY MOUTH THREE TIMES DAILY FOR 7 DAYS 06/10 completed Not Available Not Available Not Available latanoprost 0.005 % eye drops INSTILL 1 DROP INTO EACH EYE EVERY DAY AT BEDTIME active Not Available Not Available No t Available Miralax 17 gram/dose oral powder Take 17 g by oral route for 2 days. 06/10 completed Not Available Not Available Not Available metformin 500 mg tablet Take 1 tablet twice a day by oral route for 90 days. active Not Available Not Available No t Available atorvastati n 20 mg tablet Take 1 tablet every day by oral route for 90 days. active Not Available Not Available No t Available azithromyci n 250 mg tablet TAKE 2 TABLETS (500 MG) BY ORAL ROUTE ONCE DAILY FOR 1 DAY THEN 1 TABLET (250 MG) BY ORAL ROUTE ONCE DAILY FOR 4 DAYS 05/30 completed Not Available Not Available Not Available valacyclovi r 1 gram tablet 03/20 completed Not Available Not Available Not Available glipizide ER 10 mg tablet, extended release 24 hr Take 1 tablet twice a day by oral route for 90 days. active Not Available Not Available No t Available Diprivan 10 mg/mL intravenous emulsion 50 mL by intraven. route. 02/07 completed Not Available Not Available Not Available glipizide 10 mg tablet Take 1 tablet by oral route. 12/18 completed Not Available Not Available Not Available potassium chloride ER 10 mEq tablet,exte nded release Take 1 tablet every day by oral route for 90 days. 06/07 completed Not Available Not Available Not Available ciprofloxac in 500 mg tablet Take 1 tablet every 12 hours by oral route for 3 days. 03/23 completed Not Available Not Available Not Available sulfamethox azole 800 mg-trimetho prim 160 mg tablet 03/20 completed Not Available Not Available Not Available Kenalog 40 mg/mL suspension for injection 40 mg by injection route. 05/29 completed Not Available Not Available Not Available ciclopirox 8 % topical solution 11/20 completed Not Available Not Available Not Available methenamine hippurate 1 gram tablet Take 1 tablet twice a day by oral route for 90 days, for recurrent UTI. 08/18 completed Not Available Not Available Not Available Lasix 20 mg tablet medicatio n:Lasix Oral Tablet 20 MG dose:0 .0 route:PO frequenc y:PRN 08/18 completed Not Available Not Available Not Available cephalexin 500 mg capsule TAKE 1 CAPSULE BY MOUTH EVERY 8 HOURS 02/27 completed Not Available Not Available Not Available erythromyci n 5 mg/gram (0.5 %) eye ointment APPLY A 1/4 INCH STRIP OF OINTMENT INTO AFFECTED EYE IN A THIN LAYER TWICE DAILY FOR 3 DAYS BEFORE SURGERY BUT NOT THE DAY OF SURGERY 12/16 completed Not Available Not Available Not Available cyanocobala min (vit B-12) 1,000 mcg/mL injection solution Inject 1 mL every month by subcutane ous route. 06/10 completed Not Available Not Available Not Available metformin 1,000 mg tablet Take 1 tablet twice a day by oral route for 90 days. 11/23 completed Not Available Not Available Not Available brimonidine 0.2 % eye drops INSTILL 1 DROP INTO EACH EYE TWICE DAILY 03/20 completed Not Available Not Available Not Available gabapentin 300 mg capsule TAKE 1 CAPSULE DAILY IN THE EVENING 2024 active Not Available Not Available Not Avai lable omeprazole 20 mg capsule,del ayed release TAKE 1 CAPSULE DAILY 2024 active Not Available Not Available Not Avai lable montelukast 10 mg tablet TAKE 1 TABLET DAILY AT BEDTIME active Not Available Not Available No t Available metoprolol succinate ER 25 mg tablet,exte nded release 24 hr active Not Available Not Available Not Available dexamethaso ne sodium phosphate 4 mg/mL injection solution Inject 4 mg by injection route. 05/30 completed Not Available Not Available Not Available cefuroxime axetil 500 mg tablet TAKE 1 TABLET BY MOUTH EVERY 12 HOURS FOR 10 DAYS 08/18 completed Not Available Not Available Not Available methylpredn isolone 4 mg tablets in a dose pack Take 1 dose pk every day by oral route for 6 days. 03/20 completed Not Available Not Available Not Available albuterol sulfate HFA 90 mcg/actuati on aerosol inhaler INHALE 2 PUFFS BY MOUTH EVERY 4 HOURS NEEDED FOR 14 DAYS active Not Available Not Available No t Available atropine 1 % eye drops INSTILL 1 DROP INTO AFFECTED EYE TWICE A DAY, START 3 DAYS PRIOR TO EYE SURGERY AND THE MORNING OF SURGERY 03/20 completed Not Available Not Available Not Available ondansetron 4 mg disintegrat ing tablet DISSOLVE 1 TABLET IN MOUTH TWICE DAILY NEEDED FOR NAUSEA 02/27 completed Not Available Not Available Not Available fluticasone propionate 50 mcg/actuati on nasal spray,suspe nsion [place] 2 sprays every day by intranasa l route for 90 days, for 1 spray in each nostril daily. 2024 active Not Available Not Available Not Avai lable brimonidine 0.15 % eye drops 03/20 completed Not Available Not Available Not Available amoxicillin 875 mg-potassiu m clavulanate 125 mg tablet Take 1 tablet every 12 hours by oral route for 10 days. 03/20 completed Not Available Not Available Not Available Dulcolax (bisacodyl) 5 mg tablet,long yed release Take 2 tablets by oral route. 12/16 completed Not Available Not Available Not Available alfuzosin ER 10 mg tablet,exte nded release 24 hr 05/10 completed Not Available Not Available Not Available metoprolol tartrate 25 mg tablet Take 1 tablet by oral route. 03/23 completed Not Available Not Available Not Available nitrofurant oin monohydrate /macrocryst als 100 mg capsule TAKE 1 CAPSULE BY MOUTH EVERY 12 HOURS FOR 7 DAYS 10/08 completed Not Available Not Available Not Available BD Ultra-Fine Mini Pen Needle 31 gauge x 3/16 03/20 completed Not Available Not Available Not Available lidocaine (PF) 20 mg/mL (2 %) injection solution 5 mL by injection route. 11/08 completed Not Available Not Available Not Available ondansetron HCl (PF) 4 mg/2 mL injection solution 4 mg by injection route. 02/07 completed Not Available Not Available Not Available insulin glargine (U-100) 100 unit/mL (3 mL) subcutaneou s pen Inject 25 units twice a day by subcutane ous route for 90 days. 2024 active Not Available Not Available Not Avai lable Mucinex 1,200 mg tablet, extended release Take 1 tablet twice a day by oral route for 7 days. 08/18 completed Not Available Not Available Not Available OneTouch Verio test strips USE 1 STRIP TO CHECK GLUCOSE TWICE DAILY 2023 active Not Available Not Available Not Avai lable Eliquis 5 mg tablet Take 1 tablet twice a day by oral route. active Not Available Not Available No t Available Eliquis 2.5 mg tablet Take 1 tablet by oral route. 09/08 completed Not Available Not Available Not Available Ozempic 0.25 mg or 0.5 mg (2 mg/1.5 mL) subcutaneou s pen injector 09/11 completed Not Available Not Available Not Available Paxlovid 300 mg (150 mg x 2)-100 mg tablets in a dose pack TAKE 3 TABLETS TOGETHER (TWO 150 MG NIRMATREL VIR TABLETS AND ONE 100 MG RITONAVIR TABLET) BY MOUTH TWICE DAILY FOR 5 DAYS. 03/20 completed Not Available Not Available Not Available Lagevrio 200 mg capsule (EUA) 05/10 completed Not Available Not Available Not Available Ozempic 0.25 mg or 0.5 mg (2 mg/3 mL) subcutaneou s pen injector medicatio n:Ozempic (0.25 or 0.5 MG/DOSE) Subcutane ous Solution Pen-injec tor 2 MG/3ML do se:0.0 route:HERNANDES BCUT freq uency:QWE EK 11/23 completed Not Available Not Available Not Available Vitals Date Recorded Body height Body mass index (BMI) Body weight Body temperature Oxygen saturation Oxygen saturation in Arterial blood by Pulse oximetry Heart rate Respiratory rate Systolic And Diastolic Provider Name and Address Organization Details Last Updated DateTime 5 167.64 cm 41.8 kg/m2 670144. 42 g 97.2 [degF] 96 % 96 % 72 /min 18 /min 106/62 mm[Hg] Jayjay SINGH [facility] [place] [facility] [place] 5 11:29:05 Social History Question Answer Notes LastModified by Organizat ion Details LastModified Time Tobacco Smoking Status Never Smoker Not Available [employer] 09/28/2022 13:04:41 Do You Have An Advance Directive? No Information not available 11/23/2022 Do You Wear A Helmet When Biking? Yes [email or web address] Information not available 03/23/2024 Are You Blind Or Do You Have Difficulty Seeing? No Information not available 11/23/2022 What Is Your Level Of Caffeine Consumption? Occasional Information not available 03/11/2023 In The 14 Days Before Symptom Onset, Have You Had Close Contact With A Laboratory-confir med COVID-19 While That Case Was Ill? No [email or web address] Information not available 03/23/2024 In The 14 Days Before Symptom Onset, Have You Had Close Contact With A Person Who Is Under Investigation For COVID-19 While That Person Was Ill? No [email or web address] Information not available 03/23/2024 Have You Been To An Area Known To Be High Risk For COVID-19? No [email or web address] Information not available 03/23/2024 Are You Deaf Or Do You Have Serious Difficulty Hearing? No Information not available 12/17/2023 What Type Of Diet Are You Following? REGULAR [email or web address] Information not available 03/23/2024 Have You Processed Blood Or Body Fluids From An Ebola Virus Disease Patient Without Appropriate PPE? No [email or web address] Information not available 03/23/2024 Do You Reside In Or Have You Traveled To An Area Where Ebola Virus Transmission Is Active? No [email or web address] Information not available 03/23/2024 Have There Been Any Changes To Your Family Or Social Situation? No [email or web address] Information no t available 03/23/2024 What Is The Fluoride Status Of Your Home? Unknown [email or web address] Information not available 03/23/2024 Are There Any Guns Present In Your Home? No [email or web address] Information not available 03/23/2024 Have You Recently Or Are You Planning To Travel To An Area With Zika Virus? No [email or web address] Information not available 03/23/2024 Do You Use Insect Repellent Routinely? Yes [email or web address] Information not available 03/23/2024 In General, Would You Say Your Health Is Good [email or web address] Information not available 03/23/2024 How Would You Describe The Condition Of Your Mouth And Teeth including False Teeth Or Dentures? Good Information not available 03/23/2024 In The Past 7 Days, How Many Servings Of Fruits And Vegetables Did You Typically Eat Each Day? (1 Serving = 1 Cup Of Fresh Vegetables, 1 2 Cup Of Cooked Vegetables, Or 1 Medium Piece Of Fruit. 1 Cup = Size Of A Baseball.) 3-4 Servings Per Day Information not available 03/23/2024 In The Past 7 Days, How Many Servings Of High Fiber Or Whole Grain Foods Did You Typically Eat Each Day? (1 Serving = 1 Slice Of 100% Whole Wheat Bread, 1 Cup Of Whole-grain Or High-fiber Xeejn-wx-yqy Cereal, 1 2 Cup Of Cooked Cereal Such As Oatmeal, Or 1 2 Cup Of Cooked Brown Rice Or Whole Wheat Pasta.) 1-2 Servings Per Day [email or web address] Information not available 03/23/2024 In The Past 7 Days, How Many Servings Of Fried Or High-fat Foods Did You Typically Eat Each Day? (Examples Include Fried Chicken, Fried Fish, Galeana, Korean [place], Potato Chips, [place] Chips, Doughnuts, Creamy Salad Dressings, And Foods Made With Whole Milk, Cream, Cheese, Or Mayonnaise.) 1-2 Servings Per Day [email or web address] Information not available 03/23/2024 In The Past 7 Days, How Many Sugar-sweetened (not Diet) Beverages Did You Typically Consume Each Day 1-2 Drinks Per Day [email or web address] Information not available 03/23/2024 Each Night, How Many Hours Of Sleep Do You Usually Get? 6-7 Hours Information not available 12/17/2023 Do You Snore Or Has Anyone Told You That You Snore? No [email or web address] Information not available 03/23/2024 In The Past 7 Days, How Often Have You Garrett Sleepy During The Daytime? Sometimes [email or web address] Information not available 03/23/2024 Do You Have Chronic Pain? Yes Information not available 12/17/2023 Are You In A Pain Management Program? No Information not available 12/17/2023 Do You Take Opioids For Your Pain? No Information not available 12/17/2023 How Often Do You Get The Social And Emotional Support You Need: Usually Information no t available 12/17/2023 In The Past 7 Days, Did You Need Help From Others To Take Care Of Things Such As Laundry And Housekeep- Ing, Banking, Shopping, Using The Telephone, Food Preparation, Transportation, Or Taking Your Own Medications? No Information not available 12/17/2023 Do You Live Alone? No Information not available 12/17/2023 Does Your Home Have Any Fall Risks (un-level Floors, Unfastened Rugs, Poor Lighting, Etc)? No Information not available 12/17/2023 Do You Feel Safe At Home? Yes Information not available 12/17/2023 Do You Have A Medical Power Of Service Station Operator? No [email or web address] Information not available 03/23/2024 What Was The Date Of Your Most Recent Tobacco Screening? 10/06/2024 [email or web address] Information not available 10/08/2024 Do You Have Any Pets? No [email or web address] Information not available 03/23/2024 What Is Your Relationship Status? Information not available 12/17/2023 Do You Use Your Seat Belt Or Car Seat Routinely? Yes Information not available 12/17/2023 Are You Sexually Active? Yes Information not available 12/17/2023 Do You Have Smoke And Carbon Monoxide Detectors In Your Home? Yes Information not available 03/23/2024 Are You Passively Exposed To Smoke? No Information no t available 12/17/2023 Do You Use Sunscreen Routinely? Yes [email or web address] Information not available 03/23/2024 Has Tobacco Cessation Counseling Been Provided? No [email or web address] Information not available 03/11/2023 Do You Have Difficulty Walking Or Climbing Stairs? No [email or web address] Information not available 03/23/2024 Are You Currently In School? No Information not available 03/23/2024 Sex: Unknown Functional Status Question Answer Note LastModified by Organizat ion Details LastModified Time Do you use any illicit or recreational drugs? No [email or web address]_[email or web address] Information not available 09/28/2022 Do you or have you ever used any other forms of tobacco or nicotine? No [email or web address] Information not available 03/11/2023 What is your level of alcohol consumption? None CHART_[email or web address] Information not available 09/28/2022 Are you currently employed? No [email or web address] Information not available 03/23/2024 Do you have transportation difficulties? No Information not available 12/17/2023 Are you able to walk? YESWOREST [email or web address] Information not available 03/23/2024 Do you have difficulty doing errands alone? No [email or web address] Information not available 03/23/2024 Are you able to care for yourself? Yes Information n ot available 12/17/2023 Do you have difficulty dressing or bathing? No [email or web address] Information not available 03/23/2024 What is your exercise level? Occasional [email or web address] Information not available 03/23/2024 Mental Status Question Answer Note LastModified by Organizat ion Details LastModified Time Do you feel stressed (tense, restless, nervous, or anxious, or unable to sleep at night)? [id number] [email or web address] Information not available 03/23/2024 Do you have difficulty concentrating, remembering or making decisions? No Information no t available 12/17/2023 Family History Relationship Description Onset Age of this Age Resolved Age Notes LastModified by Organization Details LastModified Time Mother Diabetes mellitus deceas ed CHART_MERGE Not available 09/28/2022 13:04:39 Mother Hyperlipidem ia CHART_MERGE Not available 09/10 13:04:39 Mother Renal failure syndrome [email or web address] Not available 2023 13:10:23 Sister Hepatic failure CHART_MERGE Not available 09/10 13:04:39 Notes:Father age 93 Medical History Condition Response Allergies/Hayfever Y Kidney or Bladder Problems Y GI Problems Y Heart Attack (MT) Y Spine Problems Y Obstructive Sleep Apnea Y Diabetes Y Obesity Y Vision or Eye Problems Y Back Problems Y Sleep Apnea Y High Cholesterol Y Heart Disease Y Hypertension Y Immunizations Vaccine Type Date Status Note Provider Nam e and Address Organization Details Recorded Time COVID-19 vaccine, vector-nr, rS-Ad26, PF, 0.5 mL 1 completed Not Available [facility]/11/[facility]23 08:52:08 Influenza, high-dose, trivalent, PF 7 completed Not Available [facility] 03/11/2023 08:52:08 Influenza, high-dose, quadrivalent, PF 0 completed Not Available [facility] 03/11/2023 08:52:08 Influenza, high-dose, quadrivalent, PF 3 completed THOMAS LAL NP [address] [place] [address], [address], [facility] 03/18/2023 09:02:46 Influenza, high-dose, quadrivalent, PF 2 completed THOMAS LAL NP [address] [place], [address], [facility] & [place] 03/01/2022 12:05:10 COVID-19 vaccine, vector-nr, rS-Ad26, PF, 0.5 mL 1 completed Not Available On license of [facility] 03/11/2023 08:52:08 Pneumococcal conjugate PCV 13 0 completed Not Available [facility] 03/11/2023 08:52:08 Influenza, high-dose, trivalent, PF 4 completed THOMAS LAL NP [address] [place], [address], [facility] [place] 03/24/2024 09:56:55 Past Encounters Encounter ID Performer Location Encounter Start Date Encounter Closed Date Diagnosis/Indication Diagnosis SNOMED-CT Code Diagnosis ICD10 Code Diagnosis Note [id number] THOMAS LAL NP [facility] [address] [facility] [address] [place] [address] 10/08/2024 11:13:24 10/08/2024 11:55:58 Uncontrolled type 2 diabetes mellitus 503926323 E11.65 take medication s as prescribed awaiting hgba1c Previous hemoglobin A1c was 6.7 in June, we will send his insulin to local pharmacy to see if they can get for himreinfor natalie diet and lifestyle changesdai ly foot checkyearl y eye examfollow up every 3 months Essential hypertension 58680020 I10 educated on goal of less than 130/90advi sed low sodium diet, healthy lifestyle including exercise as ablecontin ue current medication regimenER if any symptoms such as chest pain, shortness of breath Long-term current use of anticoagulant 509602158 Z79.01 denies bleeding or bruising Swelling o f bilateral lower limbs 189103665 M79.89 controlled , lasix, compressio n socks, elevation education Neuropathy 077232123 G62 .9 controlled continue medication as prescribed vicente reviewed Dysuria 54097658 R30.0 recurrent UTIs, check urine today Seasonal allergy 0968399 04 J30.2 controlled refill provided Health Concerns Section Related Observation LastModified by Organization Detai ls LastModified Time None Recorded Concern Status LastModified by Organization Details LastModified Time None Recorded Payers Encounter Date Sequence Insurance Name Policy Number Policy Thomas Covered Member ID Thomas Member ID Guarantor Name 10/08/2024 1 [place] Danish Liao [id number] Danish Liao 10/08/2024 2 [employer] INSURANCE - [facility] [employer] - PLAN F (MEDICARE SUPPLEMENT) Danish Liao [id number] Danish Liao Notes Date Note Type Note Provider Name and Address Organization Details Recorded Time 10/08/2024 text/html 74-year-old male who presents for chronic care follow-up. Has been having issues with getting his insulin field, insurance required glargine and pharmacy does not have in stock. Glucose has been running less than 200. Denies any symptoms of hyper or hypoglycemia. Denies any wounds or ulcers on his feet. Request refill of his Flonase. Wearing a brace on his left knee today, went to stand up yesterday and had pain in his left knee, somewhat better today. He denies any popping or inability to bear weight. THOMAS LAL NP [address] [facility], [place], [address], [facility] [place] [facility] [place] 10/08/2024 11:54:55
--- OUTSIDE RECORDS SUMMARY | 2024-11-28 12:05 | XMS_ITS | Encounter Summary ---
Author Organization [facility] Address [address] [place] [id number] Care Team Providers Care Finance Admin Name Role Phone Nia Mccord APRN Primary Care Provi manda Reason for Visit * Reason Onset Date Comments Sherrie VASQUEZ - MISSED CALL 09/28/2024 Encounter Details Date Type Department Care Team (Late st Contact Info) Description 09/28/2024 Telephone [facility] [address] [place] [address] Bonny Vasquez APRN [address] [place] [address] Sherrie VASQUEZ - MISSED CALL Social History Tobacco Use Types Packs/Day [...] encounter Miscellaneous Notes * Telephone Encounter - Benjy Cortez RegSched Rep - 09/28/2024 10:37 AM EDT PT RETURNING MISSED CALL. HUB TRANSFERRED TO [facility] IN OFFICE. documented in this encounter Plan of Treatment Upcoming Encounters Date Type Department Care Team (Late st Contact Info) Description 04/19/2025 10:45 AM EST Office Visit [facility] [address] [place], [place] [phone] Alicia Thomas MD [address] [place] [address] documented as of this encounter Visit Diagnoses Not on filedocumented in this encounter Care Teams Finance Admin Relationship Specialty Start Date End Date Nia Mccord APRN [address] [place], [place] [address] PCP - General Nurse Practitioner 06/28/22 documented as of this encounter
--- OUTSIDE RECORDS SUMMARY | 2024-11-28 12:05 | XMS_ITS | Data Portability ---
Author Organization [facility] and [facility] Address [address] [place] [address] Care Team Providers Care Hospice Liaison Name Role Phone THOMAS LAL Primary Care Provider Assessment No assessment recorded. Plan of Treatment Reminders Order Date Submit Date Provider Last Modified By Organization Details Last Modified Time Details Appointments FOLLOW UP 2024 10:30A Yolanda LAL NP Not available Not available Not available Lab culture, urine 2024 025 [facility] ([facility]), [address] [place], [address], 10/09/2024 06:12:21 CMP, serum or plasma 2024 025 [facility] ([facility]), [address] [place], [address], 10/08/2024 13:34:09 hemoglobi n A1c + average glucose, QN, blood [id number] (Laboratory), [address] [place], [address], 10/15/2024 08:20:22 urinalysi s, dipstick 2024 025 - [facility], [address] [place], [address], 08/18/2024 12:16:23 culture, urine 2024 025 [facility] ([facility]), [address] [place], [address], 08/19/2024 05:13:58 culture, urine 2024 025 [facility] ([facility]), [address] [place], [address], 07/11/2024 06:08:12 CMP, serum or plasma 2024 025 [facility] ([facility]), [address] [place], [address], 07/10/2024 14:49:05 hemoglobi n A1c + average glucose, QN, blood 2024 025 [facility] (Laboratory), [address] [place], [address], 07/17/2024 07:43:08 microalbu min/creat inine, mass ratio, urine [address] [facility], [address] [place], [address], 07/10/2024 12:10:37 CBC w/ auto diff 2024 025 [facility] ([facility]), [address] [place], [address], 07/10/2024 13:33:07 urinalysi s, dipstick 2024 025 - [facility], [address] [place], [address], 07/10/2024 12:10:37 iron + TIBC + ferritin, serum 2024 025 [facility] (Laboratory), [address] [place], [address], 07/17/2024 07:43:08 vitamin B12 + folate, serum or blood 2024 025 [facility] (Laboratory), [address] [place], [address], 07/17/2024 07:43:08 lipid panel, serum 2023 024 [facility] ([facility]), [address] [place], [address], 03/23/2024 13:39:33 urinalysi s, dipstick 2023 024 - [facility], [place], [address], 03/23/2024 10:48:55 culture, urine 2023 024 [facility]), [address] [place], [address], 03/24/2024 07:36:31 CMP, serum or plasma 2023 024 [facility]), [address] [place], [address], 03/23/2024 13:35:15 hemoglobi n A1c + average glucose, QN, blood [email or web address] (Laboratory), [address] [place], [address], 03/30/2024 08:28:32 CBC w/ auto diff 2023 024 [facility]), [address] [place], [address], 03/23/2024 13:16:17 influenza virus A + B + SARS-CoV- 2 (COVID19) Ag panel, rapid IA, upper respirato ry specimen [address] [facility], [address], [place], [address], 12/25/2023 16:55:36 Referral None recorded. Procedures None recorded. Surgeries None recorded. Imaging None recorded. Medication Orders fluticaso ne propionat e 50 mcg/actua tion nasal spray,crhis pension 2024 [facility], [address] [place] [address], [address], 10/08/2024 11:49:17 insulin glargine (U-100) 100 unit/mL (3 mL) subcutane ous pen 2024 [facility] [id number], [address] , [place], [address], 10/08/2024 11:49:18 Macrobid 100 mg capsule 2024 [facility], [address] [place], [address], 10/08/2024 11:30:28 atorvasta tin 20 mg tablet 2023 [facility], [address] [place] [address], [address], 03/23/2024 10:49:30 fluticaso ne propionat e 50 mcg/actua tion nasal spray,chris pension 2023 024 [facility], [address] [place] [address], [address], 03/24/2024 09:56:55 glipizide ER 10 mg tablet, extended release 24 hr 2023 [facility], [address] [place] [address], [address], 03/23/2024 10:49:30 metformin 500 mg tablet 2023 [facility], [address] [address], [place], [address], 03/23/2024 10:49:30 gabapenti n 300 mg capsule 2023 024 [facility], [address] [place], [address], 03/23/2024 10:49:31 Paxlovid 300 mg (150 mg x 2)-100 mg tablets in a dose pack 2023 024 [facility], [address] [place] [address], [address], 12/25/2023 14:41:35 albuterol sulfate HFA 90 mcg/actua tion aerosol inhaler 2023 024 [facility], [address] [place] [address], [address], 12/25/2023 14:41:35 Mucinex 1,200 mg tablet, extended release 2023 025 [facility], [facility] [place], [address], 08/18/2024 11:20:43 Patient TargetsNo targets recorded. Patient InstructionsNo instructions recorded. Reason for Referral None Reported. Results Created Date Observation Date Name Description Value Unit Range Abnormal Flag Note LastModifiedBy Organization Detail LastModifiedTime 12/17/1912/17/2023 CBC AUTO W DIFF WBC 8.1 10 4.5-11 .5 Not Available [facility] (Lab Registration) [address] [place], [address], 12/17/2023 13:23:41 12/17/19 24 12/17/2023 CBC AUTO W DIFF RBC 4.48 10 4.25-5 .57 Not Available [facility] (Lab Registration) [address] [place], [address], 12/17/2023 13:23:41 12/17/19 24 12/17/2023 CBC AUTO W DIFF HGB 13.1 g/dL 13.5-1 7.2 low Not Available [facility] (Lab Registration) [address] [place], [address], 12/17/2023 13:23:41 12/17/19 24 12/17/2023 CBC AUTO W DIFF HCT 41.5 % 42.0-5 2.0 low Not Available [facility] (Lab Registration) [address] [place], [address], 12/17/2023 13:23:41 12/17/19 24 12/17/2023 CBC AUTO W DIFF MCV 92.6 fL 80-95 Not Available [facility] (Lab Registration) [address] [place], [address], 12/17/2023 13:23:41 12/17/19 24 12/17/2023 CBC AUTO W DIFF MCH 29.2 pg 27.0-3 4.0 Not Available [facility] (Lab Registration) [address] [place], [address], 12/17/2023 13:23:41 12/17/19 24 12/17/2023 CBC AUTO W DIFF MCHC 31.6 g/dL 32.0-3 6.0 low Not Available [facility] (Lab Registration) [address] [place], [address], 12/17/2023 13:23:41 12/17/19 24 12/17/2023 CBC AUTO W DIFF platelet count 151 10 150-45 0 Not Available [facility] (Lab Registration) [address] [place], [address], 12/17/2023 13:23:41 12/17/19 24 12/17/2023 CBC AUTO W DIFF RDW 13.3 % 12.3-1 5.1 Not Available [facility] (Lab Registration) [address] [place], [address], 12/17/2023 13:23:41 12/17/19 24 12/17/2023 CBC AUTO W DIFF MPV 12.6 fL 7.4-10 .4 high Not Available [facility] (Lab Registration) [address] [place], [address], 12/17/2023 13:23:41 12/17/19 24 12/17/2023 CBC AUTO W DIFF granulocyte% 73.2 % 40-75 Not Available [facility] (Lab Registration) [address] [place], [address], 12/17/2023 13:23:41 12/17/19 24 12/17/2023 CBC AUTO W DIFF lymphocyte% 20.1 % 15-57 Not Available [facility] (Lab Registration) [address] [place], [address], 12/17/2023 13:23:41 12/17/19 24 12/17/2023 CBC AUTO W DIFF monocyte% 4.4 % 4.0-12 .0 Not Available [facility] (Lab Registration) [address] [place], [address], 12/17/2023 13:23:41 12/17/19 24 12/17/2023 CBC AUTO W DIFF eosinophil% 1.5 % 0.0-4. 0 Not Available [facility] (Lab Registration) [address] [place], [address], 12/17/2023 13:23:41 12/17/19 24 12/17/2023 CBC AUTO W DIFF basophil% 0.7 % 0.0-1. 0 Not Available [facility] (Lab Registration) [address] [place], [address], 12/17/2023 13:23:41 12/17/19 24 12/17/2023 CBC AUTO W DIFF immature granulocytes % 0.1 % 0.0-0. 8 Not Available [facility] (Lab Registration) [address] [place], [address], 12/17/2023 13:23:41 12/17/19 24 12/17/2023 CBC AUTO W DIFF granulocyte# 5.92 10 Not Available [facility] (Lab Registration) [address] [place], [address], 12/17/2023 13:23:41 12/17/19 24 12/17/2023 CBC AUTO W DIFF lymphocyte# 1.63 10 Not Available [facility] (Lab Registration) [address] [place], [address], 12/17/2023 13:23:41 12/17/19 24 12/17/2023 CBC AUTO W DIFF monocyte# 0.36 10 Not Available [facility] (Lab Registration) [address] [place], [address], 12/17/2023 13:23:41 12/17/19 24 12/17/2023 CBC AUTO W DIFF eosinophil# 0.12 10 Not Available [facility] (Lab Registration) [address] [place], [address], 12/17/2023 13:23:41 12/17/19 24 12/17/2023 CBC AUTO W DIFF basophil# 0.06 10 Not Available [facility] (Lab Registration) [address] [place], [address], 12/17/2023 13:23:41 12/17/19 24 12/17/2023 CBC AUTO W DIFF immature granulocytes # 0.01 10 Not Available [facility] (Lab Registration) [address] [place], [address], 12/17/2023 13:23:41 12/17/19 24 12/17/2023 CBC AUTO W DIFF manual differential NO Not Available [facility] (Lab Registration) [address] [place], [address], 12/17/2023 13:23:41 12/17/19 24 12/17/2023 CBC AUTO W DIFF note Unles s other gaming noted testi ng perfo rmed at: [facility] [address] [place] [address] [phone] Giuseppe salazar MD CLIA: [id number] Not Available [facility] (Lab Registration) [address] [place], [address], 12/17/2023 13:23:41 12/17/19 24 12/17/2023 HEMOG LOBIN A1C glycosylated hemoglobin A1C 7.9 % 4.5-6. 2 high Not Available [facility] (Lab Registration) [address] [place], [address], 12/17/2023 14:23:03 12/17/19 24 12/17/2023 HEMOG LOBIN A1C estimated average glucose 180 mg/dL 82-131 high Not Available [facility] (Lab Registration) [address] [place], [address], 12/17/2023 14:23:03 12/17/19 24 12/17/2023 HEMOG LOBIN A1C note Tommy gaming noted testi ng perfo rmed at: [facility] [address] [place] [address] [phone] Giuseppe salazar MD CLIA: [id number] Not Available [facility] (Lab Registration) [address] [place], [address], 12/17/2023 14:23:03 12/17/19 24 12/17/2023 THYRO ID STIMU LATIN G HORMO NE thyroid stimulating hormone 0.95 mIU/m L 0.34-4 .80 Not Available [facility] (Lab Registration) [address] [place], [address], 12/17/2023 14:47:21 12/17/19 24 12/17/2023 THYRO ID STIMU LATIN G HORMO NE note Tommy gaming noted testi ng perfo rmed at: [facility] [address] [place] [address] [phone] Giuseppe salazar MD CLIA: [id number] Not Available [facility] (Lab Registration) [address] [place], [address], 12/17/2023 14:47:21 12/17/19 24 12/17/2023 VITAM IN B12 vitamin B12 276 pg/mL 193-98 6 Not Available [facility] (Lab Registration) [address] [place], [address], 12/17/2023 14:47:24 12/17/19 24 12/17/2023 VITAM IN B12 folate (folic acid), serum 28.8 NG/mL 8.6-58 .9 Not Available [facility] (Lab Registration) [address] [place], [address], 12/17/2023 14:47:24 12/17/19 24 12/17/2023 VITAM IN B12 note Unles s other gaming noted testi ng perfo rmed at: [facility] [address] [place] [address] [phone] Giuseppe salazar MD CLIA: [id number] Not Available [facility] (Lab Registration) [address] [place], [address], 12/17/2023 14:47:24 12/17/19 24 12/17/2023 COMP METAB OLIC PANEL sodium 139 mmol/ L 136-14 5 Not Available [facility] (Lab Registration) [address] [place], [address], 12/17/2023 14:47:27 12/17/19 24 12/17/2023 COMP METAB OLIC PANEL potassium 4.7 mmol/ L 3.5-5. 1 Not Available [facility] (Lab Registration) [address] [place], [address], 12/17/2023 14:47:27 12/17/19 24 12/17/2023 COMP METAB OLIC PANEL chloride 105 mmol/ L 98-107 Not Available [facility] (Lab Registration) [address] [place], [address], 12/17/2023 14:47:27 12/17/19 24 12/17/2023 COMP METAB OLIC PANEL carbon dioxide 20 mmol/ L 21-32 low Not Available [facility] (Lab Registration) [address] [place], [address], 12/17/2023 14:47:27 12/17/19 24 12/17/2023 COMP METAB OLIC PANEL anion gap 14.0 Not Available [facility] (Lab Registration) [address] [place], [address], 12/17/2023 14:47:27 12/17/19 24 12/17/2023 COMP METAB OLIC PANEL glucose 178 mg/dL 70-110 high Not Available [facility] (Lab Registration) [address] [place], [address], 12/17/2023 14:47:27 12/17/19 24 12/17/2023 COMP METAB OLIC PANEL blood urea nitrogen 9 mg/dL 7-18 Not Available [facility] (Lab Registration) [address] [place], [address], 12/17/2023 14:47:27 12/17/19 24 12/17/2023 COMP METAB OLIC PANEL creatinine 0.8 mg/dL 0.8-1. 3 Not Available [facility] (Lab Registration) [address] [place], [address], 12/17/2023 14:47:27 12/17/19 24 12/17/2023 COMP METAB OLIC PANEL BUN/creatini ne ratio 11.3 ratio 9-21 Not Available [facility] (Lab Registration) [address] [place], [address], 12/17/2023 14:47:27 12/17/19 24 12/17/2023 COMP METAB OLIC PANEL estimated glom filtration rate 94 mL/mi n >60- Not Available [facility] (Lab Registration) [address] [place], [address], 12/17/2023 14:47:27 12/17/19 24 12/17/2023 COMP METAB OLIC PANEL total protein 7.2 g/dL 6.4-8. 2 Not Available [facility] (Lab Registration) [address] [place], [address], 12/17/2023 14:47:27 12/17/19 24 12/17/2023 COMP METAB OLIC PANEL albumin 3.5 g/dL 3.4-5. 0 Not Available [facility] (Lab Registration) [address] [place], [address], 12/17/2023 14:47:27 12/17/19 24 12/17/2023 COMP METAB OLIC PANEL calcium 9.0 mg/dL 8.5-10 .1 Not Available [facility] (Lab Registration) [address] [place], [address], 12/17/2023 14:47:27 12/17/19 24 12/17/2023 COMP METAB OLIC PANEL corrected calcium 9.4 mg/dL 8.5-10 .1 Not Available [facility] (Lab Registration) [address] [place], [address], 12/17/2023 14:47:27 12/17/19 24 12/17/2023 COMP METAB OLIC PANEL bilirubin total 1.1 mg/dL 0.4-1. 5 Not Available [facility] (Lab Registration) [address] [place], [address], 12/17/2023 14:47:27 12/17/19 24 12/17/2023 COMP METAB OLIC PANEL AST (SGOT) 25 U/L 15-37 Not Available [facility] (Lab Registration) [address] [place], [address], 12/17/2023 14:47:27 12/17/19 24 12/17/2023 COMP METAB OLIC PANEL ALT (SGPT) 26 U/L 12-78 Not Available [facility] (Lab Registration) [address] [place], [address], 12/17/2023 14:47:27 12/17/19 24 12/17/2023 COMP METAB OLIC PANEL alk phosphatase 64 U/L Not Available [facility] (Lab Registration) [address] [place], [address], 12/17/2023 14:47:27 12/17/19 24 12/17/2023 COMP METAB OLIC PANEL note Unles s other gaming noted testi ng perfo rmed at: [facility] [address] [place] [address] [phone] Giuseppe salazar MD CLIA: [id number] Not Available [facility] (Lab Registration) [address] [place], [address], 12/17/2023 14:47:27 12/17/19 24 12/17/2023 LIPID PANEL triglyceride 102 mg/dL 20-200 The Natio nal [employer] ([facility] ) has set the follo wing guide lines for Fasti ng Trigl yceri laurel: MAIRA L: <150 mg/dL BORDE RLINE HIGH: 150 - 199 mg/dL HIGH: 200 - 499 mg/dL VERY HIGH: > or =500 mg/dL Not Available [facility] (Lab Registration) [address] [place], [address], 12/17/2023 14:47:30 12/17/19 24 12/17/2023 LIPID PANEL cholesterol 116 mg/dL 0-200 The [employer]io nal [employer] ([facility] ) has set the follo wing guide lines for Fasti ng Ebkah stero l: ML ABLE: <200 mg/dL BORDE RLINE HIGH: 200 - 239 mg/dL HIGH: > or =240 mg/dL Not Available [facility] (Lab Registration) [address], [place], [address], 12/17/2023 14:47:30 12/17/19 24 12/17/2023 LIPID PANEL HDL cholesterol 40 mg/dL 60- low The [employer]io n[employer] ([facility] ) has set the follo wing guide lines for Fasti ng HDL Bekah stero l: LOW HDL: <40 mg/dL MAIRA L: 40 - 60 mg/dL ML ABLE: >60 mg/dL Not Available [facility] (Lab Registration) [address] [place], [address], 12/17/2023 14:47:30 12/17/19 24 12/17/2023 LIPID PANEL LDL calculated 56 mg/dL 100- low The [employer] ([employer] ) has set the follo wing guide lines for Fasti ng LDL Bekah stero l: OPTIM AL: < 100 mg/dL LOW RISK: 100 - 129 mg/dL BORDE RLINE HIGH: 130 - 159 mg/dL HIGH: 160 - 189 mg/dL VERY HIGH: > or = 190 mg/dL Not Available [facility] (Lab Registration) [address] [place], [address], 12/17/2023 14:47:30 12/17/19 24 12/17/2023 LIPID PANEL chol/HDL ratio 3 ratio -5 Not Available [facility] (Lab Registration) [address] [place], [address], 12/17/2023 14:47:30 12/17/19 24 12/17/2023 LIPID PANEL note Unles s other gaming noted testi ng perfo rmed at: [facility] [address] [place] [address] [phone] Giuseppe salazar MD CLIA: [id number] Not Available [facility] (Lab Registration) [address], [place], [address], 12/17/2023 14:47:30 12/17/19 24 12/17/2023 JULIA TIN ferritin 40 NG/mL 8-388 Not Available [facility] (Lab Registration) [address] [place], [address], 12/17/2023 14:47:32 12/17/19 24 12/17/2023 JULIA TIN note Unles s other gaming noted testi ng [facility]med [facility] [address] [place] [address] [phone] Giuseppe salazar MD CLIA: [id number] Not Available [facility] (Lab Registration) [address] [place], [address], 12/17/2023 14:47:32 12/17/19 24 12/17/2023 IRON/ TIBC/ %SAT (IRON STUDI ES) iron 53 ug/dL 35-150 Not Available [facility] (Lab Registration) [address], [place], [address], 12/17/2023 14:47:33 12/17/19 24 12/17/2023 IRON/ TIBC/ %SAT (IRON STUDI ES) total iron bind cap (TIBC) 349 ug/dL 250-45 0 Not Available [facility] (Lab Registration) [address] [place], [address], 12/17/2023 14:47:33 12/17/19 24 12/17/2023 IRON/ TIBC/ %SAT (IRON STUDI ES) % saturation 15 % 15-55 Not Available [facility] (Lab Registration) [address] [place], [address], 12/17/2023 14:47:33 12/17/19 24 12/17/2023 IRON/ TIBC/ %SAT (IRON STUDI ES) note Unles s other gaming noted testi ng perfo rmed at: [facility] [address] [place] [phone] Giuseppe salazar MD CLIA: [id number] Not Available [facility] (Lab Registration) [address] [place], [address], 12/17/2023 14:47:33 12/17/19 24 12/17/2023 CULTU RE URINE results LT 12-17 714 >100, 000 COL/M L Gram Negat amos Rods Not Available [facility] (Lab Registration) [address] [place], [address], 12/18/2023 07:16:30 12/17/19 24 12/17/2023 CULTU RE URINE note Unles s other gaming noted testi ng perfo rmed at: [facility] [address] [place] [phone] Giuseppe salazar MD CLIA: [id number] Not Available [facility] (Lab Registration) [address] [place], [address], 12/18/2023 07:16:30 12/17/19 24 12/17/2023 HCV ANTIB TERESA note Unlmarlene s other gaming noted testi ng perfo rmed at: [facility] [address] [place] [address] [phone] Giuseppe salaazr MD CLIA: [id number] Not Available [facility] (Lab Registration) [address] [place], [address], 12/18/2023 08:24:19 12/17/19 24 12/18/2023 HCV ANTIB TERESA HCV antibody NON REACTI VE non reacti ve HCV antib teresa alone does not diffe renti ate betwe en previ ously resol cesario infec tion and activ e infec tion. Equiv ocal and React amos HCV antib teresa resul ts shoul d be follo wed up with an HCV RNA test to suppo rt the diagn osis of activ e HCV infec tion. Perfo rmed at: - [facility] [address], [place] [address] Lab Direc tor: Chris amaya PhD, Phone : [phone] Not Available [facility] (Lab Registration) [address], [place], [address], 12/18/2023 08:24:19 12/17/19 24 12/17/2023 CULTU RE URINE culccur ===== ===== ===== ===== ===== ===== ===== ===== ===== ===== ===== ===== ===== ===== ===== ===== ===== ===== ===== ===== ===== ===== ===== ===== Speci men NO.: [id number] Exam Statu s: Final Proce dure: CULTU RE URINE ===== ===== ===== ===== ===== ===== ===== ===== ===== ===== ===== ===== ===== ===== ===== ===== ===== ===== ===== ===== ===== ===== ===== ===== Iso/R esult : 01 Esche sara a coli Antim icrob ic/Do se CASS Syste cass Urine __ ___ ___ Ampic illin >16 R R Amp/S ulbac duran >16/8 R R Aztre onam <=4 S S Cefaz hanna 8 S S Cefep keturah <=2 S S Cefot axime <=2 S S Cefox itin <=8 S S Cefta zidim e <=1 S S Ceftr iaxon e <=1 S S Cefur oxime <=4 S S Cipro floxa rosemarie >2 R R Ertap enem <=0.5 S S Genta micin <=4 S S Levof loxac in >4 R R Merop enem <=1 S S Nitro furan toin <=32 S S Pip/T azo <=16 S S Tetra cycli ne <=4 S S Tobra mycin <=4 S S Trime th/Charles lfa <=2/3 8 S S LT 12-17 714 >100, 000 COL/M L Gram Negat amos Rods Not Available [facility] (Lab Registration) [address] [place], [address], 12/19/2023 06:23:20 12/17/19 24 12/17/2023 CULTU RE URINE note Unles s other gaming noted testi ng perfo rmed at: [facility] [address] [place] [address] [phone] Giuseppe salazar MD CLIA: [id number] Not Available [facility] (Lab Registration) [address] [place], [address], 12/19/2023 06:23:20 12/17/19 24 12/17/2023 urina lysis , dipst ick Leukocytes (reference range) small Not Available [address] [place], [address], 12/16/2023 16:00:10 12/17/19 24 12/17/2023 urina lysis , dipst ick Nitrite (reference range:) negati ve Not Available [address] [place], [address], 12/16/2023 16:00:10 12/17/19 24 12/17/2023 urina lysis , dipst ick Urobilinogen (reference range) 2 Not Available [address] [place], [address], 12/16/2023 16:00:10 12/17/19 24 12/17/2023 urina lysis , dipst ick Protein (reference range) negati ve Not Available [address] [place], [address], 12/16/2023 16:00:10 12/17/19 24 12/17/2023 urina lysis , dipst ick pH (reference range 5-8.5) 7.5 Not Available [address] [place], [address], 12/16/2023 16:00:10 12/17/19 24 12/17/2023 urina lysis , dipst ick Blood (reference range:) negati ve Not Available [address] [place], [address], 12/16/2023 16:00:10 12/17/19 24 12/17/2023 urina lysis , dipst ick Specific [place] (reference range) 1.020 Not Available [address] [place], [address], 12/16/2023 16:00:10 12/17/19 24 12/17/2023 urina lysis , dipst ick Ketone (reference range) negati ve Not Available [address] [place], [address], 12/16/2023 16:00:10 12/17/19 24 12/17/2023 urina lysis , dipst ick Bilirubin (reference range) negati ve Not Available [address] [place], [address], 12/16/2023 16:00:10 12/17/19 24 12/17/2023 urina lysis , dipst ick Glucose (reference range) negati ve Not Available [address] [place], [address], 12/16/2023 16:00:10 12/17/19 24 12/17/2023 urina lysis , dipst ick Color (reference range: yellow-brown ) Yellow Not Available [address] [place], [address], 12/16/2023 16:00:10 12/17/19 24 12/17/2023 micro album in/cr eatin ine, mass ratio , urine Microalbumin 10 mg/L Not Available [address] [place], [address], 11/22/2023 16:27:41 12/17/19 24 12/17/2023 micro album in/cr eatin ine, mass ratio , urine Creatinine 100 mg/dL Not Available [address] [place], [address], 11/22/2023 16:27:41 12/17/19 24 12/17/2023 micro album in/cr eatin ine, mass ratio , urine Ratio <30 mg/g Not Available [address] [place], [address], 11/22/2023 16:27:41 12/25/19 24 12/25/2023 influ misael virus A + B + SARS- CoV-2 (COVI D19) Ag panel , rapid IA, upper respi rator y speci men FLU A negati ve Not Available [address] [place], [address], 12/25/2023 14:15:21 12/25/19 24 12/25/2023 influ misael virus A + B + SARS- CoV-2 (COVI D19) Ag panel , rapid IA, upper respi rator y speci men FLU B negati ve Not Available [facility] [address] [place], [address], 12/25/2023 14:15:21 12/25/19 24 12/25/2023 influ misael virus A + B + SARS- CoV-2 (COVI D19) Ag panel , rapid IA, upper respi rator y speci men SARS COV + SARS OV 2 positi ve Not Available [address] [place], [address], 12/25/2023 14:15:21 03/23/20 24 03/23/2024 CBC AUTO W DIFF WBC 7.5 10 4.5-11 .5 Not Available [facility] (Lab Registration) [address] [place], [address], 03/23/2024 13:16:17 03/23/20 24 03/23/2024 CBC AUTO W DIFF RBC 4.11 10 4.25-5 .57 low Not Available [facility] (Lab Registration) [address] [place], [address], 03/23/2024 13:16:17 03/23/20 24 03/23/2024 CBC AUTO W DIFF HGB 12.4 g/dL 13.5-1 7.2 low Not Available [facility] (Lab Registration) [address] [place], [address], 03/23/2024 13:16:17 03/23/20 24 03/23/2024 CBC AUTO W DIFF HCT 38.3 % 42.0-5 2.0 low Not Available [facility] (Lab Registration) [address] [place], [address], 03/23/2024 13:16:17 03/23/20 24 03/23/2024 CBC AUTO W DIFF MCV 93.2 fL 80-95 Not Available [facility] (Lab Registration) [address] [place], [address], 03/23/2024 13:16:17 03/23/20 24 03/23/2024 CBC AUTO W DIFF MCH 30.2 pg 27.0-3 4.0 Not Available [facility] (Lab Registration) [address] [place], [address], 03/23/2024 13:16:17 03/23/20 24 03/23/2024 CBC AUTO W DIFF MCHC 32.4 g/dL 32.0-3 6.0 Not Available [facility] (Lab Registration) [address] [place], [address], 03/23/2024 13:16:17 03/23/20 24 03/23/2024 CBC AUTO W DIFF platelet count 143 10 150-45 0 low Not Available [facility] (Lab Registration) [address] [place], [address], 03/23/2024 13:16:17 03/23/20 24 03/23/2024 CBC AUTO W DIFF RDW 12.6 % 12.3-1 5.1 Not Available [facility] (Lab Registration) [address] [place], [address], 03/23/2024 13:16:17 03/23/20 24 03/23/2024 CBC AUTO W DIFF MPV 12.9 fL 7.4-10 .4 high Not Available [facility] (Lab Registration) [address] [place], [address], 03/23/2024 13:16:17 03/23/20 24 03/23/2024 CBC AUTO W DIFF granulocyte% 70.4 % 40-75 Not Available [facility] (Lab Registration) [address] [place], [address], 03/23/2024 13:16:17 03/23/20 24 03/23/2024 CBC AUTO W DIFF lymphocyte% 22.1 % 15-57 Not Available [facility] (Lab Registration) [address] [place], [address], 03/23/2024 13:16:17 03/23/20 24 03/23/2024 CBC AUTO W DIFF monocyte% 5.2 % 4.0-12 .0 Not Available [facility] (Lab Registration) [address] [place], [address], 03/23/2024 13:16:17 03/23/20 24 03/23/2024 CBC AUTO W DIFF eosinophil% 1.7 % 0.0-4. 0 Not Available [facility] (Lab Registration) [address] [place], [address], 03/23/2024 13:16:17 03/23/20 24 03/23/2024 CBC AUTO W DIFF basophil% 0.5 % 0.0-1. 0 Not Available [facility] (Lab Registration) [address] [place], [address], 03/23/2024 13:16:17 03/23/20 24 03/23/2024 CBC AUTO W DIFF immature granulocytes % 0.1 % 0.0-0. 8 Not Available [facility] (Lab Registration) [address] [place], [address], 03/23/2024 13:16:17 03/23/20 24 03/23/2024 CBC AUTO W DIFF granulocyte# 5.24 10 Not Available [facility] (Lab Registration) [address] [place], [address], 03/23/2024 13:16:17 03/23/20 24 03/23/2024 CBC AUTO W DIFF lymphocyte# 1.65 10 Not Available [facility] (Lab Registration) [address] [place], [address], 03/23/2024 13:16:17 03/23/20 24 03/23/2024 CBC AUTO W DIFF monocyte# 0.39 10 Not Available [facility] (Lab Registration) [address] [place], [address], 03/23/2024 13:16:17 03/23/20 24 03/23/2024 CBC AUTO W DIFF eosinophil# 0.13 10 Not Available [facility] (Lab Registration) [address], [place], [address], 03/23/2024 13:16:17 03/23/20 24 03/23/2024 CBC AUTO W DIFF basophil# 0.04 10 Not Available [facility] (Lab Registration) [address], [place], [address], 03/23/2024 13:16:17 03/23/20 24 03/23/2024 CBC AUTO W DIFF immature granulocytes # 0.01 10 Not Available [facility] (Lab Registration) [address], [place], [address], 03/23/2024 13:16:17 03/23/20 24 03/23/2024 CBC AUTO W DIFF manual differential NO Not Available [facility] (Lab Registration) [address], [place], [address], 03/23/2024 13:16:17 03/23/20 24 03/23/2024 CBC AUTO W DIFF note Unles s other gaming noted testi ng perfo rmed at: [facility] [address] [place] [address] [phone] Giuspepe salazar MD CLIA: [id number] Not Available [facility] (Lab Registration) [address] [place], [address], 03/23/2024 13:16:17 03/23/20 24 03/23/2024 COMP METAB OLIC PANEL sodium 142 mmol/ L 136-14 5 Not Available [facility] (Lab Registration) [address] [place], [address], 03/23/2024 13:35:15 03/23/20 24 03/23/2024 COMP METAB OLIC PANEL potassium 4.4 mmol/ L 3.5-5. 1 Not Available [facility] (Lab Registration) [address] [place], [address], 03/23/2024 13:35:15 03/23/20 24 03/23/2024 COMP METAB OLIC PANEL chloride 106 mmol/ L 98-107 Not Available [facility] (Lab Registration) [address] [place], [address], 03/23/2024 13:35:15 03/23/20 24 03/23/2024 COMP METAB OLIC PANEL carbon dioxide 27 mmol/ L 21-32 Not Available [facility] (Lab Registration) [address] [place], [address], 03/23/2024 13:35:15 03/23/20 24 03/23/2024 COMP METAB OLIC PANEL anion gap 9.0 Not Available [facility] (Lab Registration) [address] [place], [address], 03/23/2024 13:35:15 03/23/20 24 03/23/2024 COMP METAB OLIC PANEL glucose 137 mg/dL 70-110 high Not Available [facility] (Lab Registration) [address] [place], [address], 03/23/2024 13:35:15 03/23/20 24 03/23/2024 COMP METAB OLIC PANEL blood urea nitrogen 14 mg/dL 7-18 Not Available [facility] (Lab Registration) [address] [place], [address], 03/23/2024 13:35:15 03/23/20 24 03/23/2024 COMP METAB OLIC PANEL creatinine 1.0 mg/dL 0.8-1. 3 Not Available [facility] (Lab Registration) [address] [place], [address], 03/23/2024 13:35:15 03/23/20 24 03/23/2024 COMP METAB OLIC PANEL BUN/creatini ne ratio 14.0 9-21 Not Available [facility] (Lab Registration) [address], [place], [address], 03/23/2024 13:35:15 03/23/20 24 03/23/2024 COMP METAB OLIC PANEL estimated glom filtration rate 79 mL/mi n >60- GFR LIMIT ATION : The eGFR equat ion CKD-E PI 2020 is not appli cable for pedia tric patie nts or great er than 90 years of age. The follo wing condi tions may alter the GFR resul t: extre mes in body size, malnu triti on or obesi ty, skele moshe muscl e disea se, parap legia or quadr ipleg ia, veget brenden diet or rapid ly gomez ing kiney funct ion. Not Available [facility] (Lab Registration) [address], [place], [address], 03/23/2024 13:35:15 03/23/20 24 03/23/2024 COMP METAB OLIC PANEL total protein 7.2 g/dL 6.4-8. 2 Not Available [facility] (Lab Registration) [address], [place], [address], 03/23/2024 13:35:15 03/23/20 24 03/23/2024 COMP METAB OLIC PANEL albumin 3.7 g/dL 3.4-5. 0 Not Available [facility] (Lab Registration) [address], [place], [address], 03/23/2024 13:35:15 03/23/20 24 03/23/2024 COMP METAB OLIC PANEL calcium 9.2 mg/dL 8.5-10 .1 Not Available [facility] (Lab Registration) [address] [place], [address], 03/23/2024 13:35:15 03/23/20 24 03/23/2024 COMP METAB OLIC PANEL corrected calcium 9.4 mg/dL 8.5-10 .1 Not Available [facility] (Lab Registration) [address], [place], [address], 03/23/2024 13:35:15 03/23/20 24 03/23/2024 COMP METAB OLIC PANEL bilirubin total 1.0 mg/dL 0.4-1. 5 Not Available [facility] (Lab Registration) [address] [place], [address], 03/23/2024 13:35:15 03/23/20 24 03/23/2024 COMP METAB OLIC PANEL AST (SGOT) 21 U/L 15-37 Not Available [facility] (Lab Registration) [address], [place], [address], 03/23/2024 13:35:15 03/23/20 24 03/23/2024 COMP METAB OLIC PANEL ALT (SGPT) 34 U/L 12-78 Not Available [facility] (Lab Registration) [address] [place], [address], 03/23/2024 13:35:15 03/23/20 24 03/23/2024 COMP METAB OLIC PANEL alk phosphatase 68 U/L Not Available [facility] (Lab Registration) [address] [place], [address], 03/23/2024 13:35:15 03/23/20 24 03/23/2024 COMP METAB OLIC PANEL note Unles s other gaming noted testi ng perfo rmed at: [facility] [address] [place] [address] [phone] Giuseppe salazar MD CLIA: [id number] Not Available [facility] (Lab Registration) [address] [place], [address], 03/23/2024 13:35:15 03/23/20 24 03/23/2024 LIPID PANEL triglyceride 104 mg/dL 20-200 The Natio nal [employer] am (NCEP ) has set the follo wing guide lines for Fasti ng Trigl yceri laurel: MAIRA L: <150 mg/dL BORDE RLINE HIGH: 150 - 199 mg/dL HIGH: 200 - 499 mg/dL VERY HIGH: > or =500 mg/dL Not Available [facility] (Lab Registration) [address] [place], [address], 03/23/2024 13:39:33 03/23/20 24 03/23/2024 LIPID PANEL cholesterol 156 mg/dL 0-200 The [employer]io n[employer] (NMEP ) has set the follo wing guide lines for Fasti ng Bekah stero l: ML ABLE: <200 mg/dL BORDE RLINE HIGH: 200 - 239 mg/dL HIGH: > or =240 mg/dL Not Available [facility] (Lab Registration) [address] [place], [address], 03/23/2024 13:39:33 03/23/20 24 03/23/2024 LIPID PANEL HDL cholesterol 45 mg/dL 60- low The [employer]io n[employer] am (NCEP ) has set the follo wing guide lines for Fasti ng HDL Bekah stero l: LOW HDL: <40 mg/dL MAIRA L: 40 - 60 mg/dL ML ABLE: >60 mg/dL Not Available [facility] (Lab Registration) [address] [place], [address], 03/23/2024 13:39:33 03/23/20 24 03/23/2024 LIPID PANEL LDL calculated 90 mg/dL 100- low The [employer]io n[employer]gr am (NCEP ) has set the follo wing guide lines for Fasti ng LDL Bekah stero l: OPTIM AL: < 100 mg/dL LOW RISK: 100 - 129 mg/dL BORDE RLINE HIGH: 130 - 159 mg/dL HIGH: 160 - 189 mg/dL VERY HIGH: > or = 190 mg/dL Not Available [facility] (Lab Registration) [address] [place], [address], 03/23/2024 13:39:33 03/23/20 24 03/23/2024 LIPID PANEL chol/HDL ratio 3 -5 Not Available [facility] (Lab Registration) [address] [place], [address], 03/23/2024 13:39:33 03/23/20 24 03/23/2024 LIPID PANEL note Unles s other gaming noted testi ng perfo rmed at: [facility] [address] [place] [address] [phone] Giuseppe salazar MD CLIA: [id number] Not Available [facility] (Lab Registration) [address] [place], [address], 03/23/2024 13:39:33 03/23/20 24 03/23/2024 HEMOG LOBIN A1C glycosylated hemoglobin A1C 6.8 % 4.5-6. 2 high Not Available [facility] (Lab Registration) [address] [place], [address], 03/23/2024 13:58:16 03/23/20 24 03/23/2024 HEMOG LOBIN A1C estimated average glucose 148 mg/dL 82-131 high Not Available [facility] (Lab Registration) [address] [place], [address], 03/23/2024 13:58:16 03/23/20 24 03/23/2024 HEMOG LOBIN A1C note Unles s other gaming noted testi ng perfo rmed at: [facility] [address] [place] [address] [phone] Giuseppe salazar MD CLIA: [id number] Not Available [facility] (Lab Registration) [address] [place], [address], 03/23/2024 13:58:16 03/23/20 24 03/23/2024 CULTU RE URINE results MRB 03-24 735 No Signi figan t Growt h at Day 1 MRB 4- 11-13 719 No Signi fican t Growt h at Day 2 Not Available [facility] (Lab Registration) [address] [place], [address], 03/25/2024 07:21:03 03/23/20 24 03/23/2024 CULTU RE URINE note Unles s other gaming noted testi ng perfo rmed at: [facility] [place] [address] [phone] Giuseppe salazar MD CLIA: [id number] Not Available [facility] (Lab Registration) [address] [place], [address], 03/25/2024 07:21:03 03/23/20 24 03/23/2024 urina lysis , dipst ick Leukocytes (reference range) negati ve Not Available [facility] [address] [place], [address], 03/23/2024 10:28:35 03/23/20 24 03/23/2024 urina lysis , dipst ick Nitrite (reference range:) negati ve Not Available [address] [place], [address], 03/23/2024 10:28:35 03/23/20 24 03/23/2024 urina lysis , dipst ick Urobilinogen (reference range) 0.2 Not Available [address] [place], [address], 03/23/2024 10:28:35 03/23/20 24 03/23/2024 urina lysis , dipst ick Protein (reference range) negati ve Not Available [address] [place], [address], 03/23/2024 10:28:35 03/23/20 24 03/23/2024 urina lysis , dipst ick pH (reference range 5-8.5) 6.0 Not Available [address] [place], [address], 03/23/2024 10:28:35 03/23/20 24 03/23/2024 urina lysis , dipst ick Blood (reference range:) negati ve Not Available [address] [place], [address], 03/23/2024 10:28:35 03/23/20 24 03/23/2024 urina lysis , dipst ick Specific [place] (reference range) 1.020 Not Available [address] [place], [address], 03/23/2024 10:28:35 03/23/20 24 03/23/2024 urina lysis , dipst ick Ketone (reference range) negati ve Not Available [address] [place], [address], 03/23/2024 10:28:35 03/23/20 24 03/23/2024 urina lysis , dipst ick Bilirubin (reference range) negati ve Not Available [address] [place], [address], 03/23/2024 10:28:35 03/23/20 24 03/23/2024 urina lysis , dipst ick Glucose (reference range) negati ve Not Available [address] [place], [address], 03/23/2024 10:28:35 03/23/20 24 03/23/2024 urina lysis , dipst ick Color (reference range: yellow-brown ) Yellow Not Available [address] [place], [address], 03/23/2024 10:28:35 04/21/20 24 04/21/2024 CBC AUTO W DIFF WBC 9.1 10 4.5-11 .5 Not Available [facility] (Lab Registration) [address] [place], [address], 04/21/2024 17:08:11 04/21/20 24 04/21/2024 CBC AUTO W DIFF RBC 4.28 10 4.25-5 .57 Not Available [facility] (Lab Registration) [address] [place], [address], 04/21/2024 17:08:11 04/21/20 24 04/21/2024 CBC AUTO W DIFF HGB 12.8 g/dL 13.5-1 7.2 low Not Available [facility] (Lab Registration) [address] [place], [address], 04/21/2024 17:08:11 04/21/20 24 04/21/2024 CBC AUTO W DIFF HCT 39.2 % 42.0-5 2.0 low Not Available [facility] (Lab Registration) [address] [place], [address], 04/21/2024 17:08:11 04/21/20 24 04/21/2024 CBC AUTO W DIFF MCV 91.6 fL 80-95 Not Available [facility] (Lab Registration) [address] [place], [address], 04/21/2024 17:08:11 04/21/20 24 04/21/2024 CBC AUTO W DIFF MCH 29.9 pg 27.0-3 4.0 Not Available [facility] (Lab Registration) [address] [place], [address], 04/21/2024 17:08:11 04/21/20 24 04/21/2024 CBC AUTO W DIFF MCHC 32.7 g/dL 32.0-3 6.0 Not Available [facility] (Lab Registration) [address] [place], [address], 04/21/2024 17:08:11 04/21/20 24 04/21/2024 CBC AUTO W DIFF platelet count 164 10 150-45 0 Not Available [facility] (Lab Registration) [address] [place], [address], 04/21/2024 17:08:11 04/21/20 24 04/21/2024 CBC AUTO W DIFF RDW 12.7 % 12.3-1 5.1 Not Available [facility] (Lab Registration) [address] [place], [address], 04/21/2024 17:08:11 04/21/20 24 04/21/2024 CBC AUTO W DIFF MPV 11.9 fL 7.4-10 .4 high Not Available [facility] (Lab Registration) [address] [place], [address], 04/21/2024 17:08:11 04/21/20 24 04/21/2024 CBC AUTO W DIFF granulocyte% 74.8 % 40-75 Not Available [facility] (Lab Registration) [address] [place], [address], 04/21/2024 17:08:11 04/21/20 24 04/21/2024 CBC AUTO W DIFF lymphocyte% 18.6 % 15-57 Not Available [facility] (Lab Registration) [address] [place], [address], 04/21/2024 17:08:11 04/21/20 24 04/21/2024 CBC AUTO W DIFF monocyte% 4.9 % 4.0-12 .0 Not Available [facility] (Lab Registration) [address] [place], [address], 04/21/2024 17:08:11 04/21/20 24 04/21/2024 CBC AUTO W DIFF eosinophil% 1.3 % 0.0-4. 0 Not Available [facility] (Lab Registration) [address] [place], [address], 04/21/2024 17:08:11 04/21/20 24 04/21/2024 CBC AUTO W DIFF basophil% 0.3 % 0.0-1. 0 Not Available [facility] (Lab Registration) [address] [place], [address], 04/21/2024 17:08:11 04/21/20 24 04/21/2024 CBC AUTO W DIFF immature granulocytes % 0.1 % 0.0-0. 8 Not Available [facility] (Lab Registration) [address] [place], [address], 04/21/2024 17:08:11 04/21/20 24 04/21/2024 CBC AUTO W DIFF granulocyte# 6.77 10 Not Available [facility] (Lab Registration) [address] [place], [address], 04/21/2024 17:08:11 04/21/20 24 04/21/2024 CBC AUTO W DIFF lymphocyte# 1.68 10 Not Available [facility] (Lab Registration) [address] [place], [address], 04/21/2024 17:08:11 04/21/20 24 04/21/2024 CBC AUTO W DIFF monocyte# 0.44 10 Not Available [facility] (Lab Registration) [address] [place], [address], 04/21/2024 17:08:11 04/21/20 24 04/21/2024 CBC AUTO W DIFF eosinophil# 0.12 10 Not Available [facility] (Lab Registration) [address] [place], [address], 04/21/2024 17:08:11 04/21/20 24 04/21/2024 CBC AUTO W DIFF basophil# 0.03 10 Not Available [facility] (Lab Registration) [address] [place], [address], 04/21/2024 17:08:11 04/21/20 24 04/21/2024 CBC AUTO W DIFF immature granulocytes # 0.01 10 Not Available [facility] (Lab Registration) [address] [place], [address], 04/21/2024 17:08:11 04/21/20 24 04/21/2024 CBC AUTO W DIFF manual differential NO Not Available [facility] (Lab Registration) [address] [place], [address], 04/21/2024 17:08:11 04/21/20 24 04/21/2024 CBC AUTO W DIFF note Unles s other gaming noted testi ng perfo rmed at: [facility] [address] [place] [address] [phone] Giuseppe salazar MD CLIA: [id number] Not Available [facility] (Lab Registration) [address] [place], [address], 04/21/2024 17:08:11 04/21/20 24 04/21/2024 JULIA TIN ferritin 46 NG/mL 8-388 Not Available [facility] (Lab Registration) [address] [place], [address], 04/21/2024 17:58:46 04/21/20 24 04/21/2024 JULIA TIN note Unles s other gaming noted testi ng perfo rmed at: [facility] [address] [place] [address] [phone] Giuseppe salazar MD CLIA: [id number] Not Available [facility] (Lab Registration) [address] [place], [address], 04/21/2024 17:58:46 04/21/20 24 04/21/2024 VITAM IN B12 vitamin B12 842 pg/mL 193-98 6 Not Available [facility] (Lab Registration) [address] [place], [address], 04/21/2024 17:58:47 04/21/20 24 04/21/2024 VITAM IN B12 folate (folic acid), serum 30.0 NG/mL 8.6-58 .9 Not Available [facility] (Lab Registration) [address], [place], [address], 04/21/2024 17:58:47 04/21/20 24 04/21/2024 VITAM IN B12 note Unles s other gaming noted testi ng perfo rmed at: [facility] [place] [address] [phone] Giuseppe salazar MD CLIA: [id number] Not Available [facility] (Lab Registration) [address], [place], [address], 04/21/2024 17:58:47 04/21/20 24 04/21/2024 IRON/ TIBC/ %SAT (IRON STUDI ES) iron 39 ug/dL 35-150 Not Available [facility] (Lab Registration) [address], [place], [address], 04/21/2024 17:58:48 04/21/20 24 04/21/2024 IRON/ TIBC/ %SAT (IRON STUDI ES) total iron bind cap (TIBC) 352 ug/dL 250-45 0 Not Available [facility] (Lab Registration) [address], [place], [address], 04/21/2024 17:58:48 04/21/20 24 04/21/2024 IRON/ TIBC/ %SAT (IRON STUDI ES) % saturation 11 % 15-55 low Not Available [facility] (Lab Registration) [address], [place], [address], 04/21/2024 17:58:48 04/21/20 24 04/21/2024 IRON/ TIBC/ %SAT (IRON STUDI ES) note Unles s other gaming noted testi ng perfo rmed at: [facility] [address] [place] [address] [phone] Giuseppe salazar MD CLIA: [id number] Not Available [facility] (Lab Registration) [address] [place], [address], 04/21/2024 17:58:48 07/10/19 25 07/10/2024 CBC AUTO W DIFF WBC 7.5 10 4.5-11 .5 Not Available [facility] (Lab Registration) [address] [place], [address], 07/10/2024 13:33:07 07/10/19 25 07/10/2024 CBC AUTO W DIFF RBC 4.33 10 4.25-5 .57 Not Available [facility] (Lab Registration) [address] [place], [address], 07/10/2024 13:33:07 07/10/19 25 07/10/2024 CBC AUTO W DIFF HGB 13.1 g/dL 13.5-1 7.2 low Not Available [facility] (Lab Registration) [address] [place], [address], 07/10/2024 13:33:07 07/10/19 25 07/10/2024 CBC AUTO W DIFF HCT 40.0 % 42.0-5 2.0 low Not Available [facility] (Lab Registration) [address] [place], [address], 07/10/2024 13:33:07 07/10/19 25 07/10/2024 CBC AUTO W DIFF MCV 92.4 fL 80-95 Not Available [facility] (Lab Registration) [address] [place], [address], 07/10/2024 13:33:07 07/10/19 25 07/10/2024 CBC AUTO W DIFF MCH 30.3 pg 27.0-3 4.0 Not Available [facility] (Lab Registration) [address] [place], [address], 07/10/2024 13:33:07 07/10/19 25 07/10/2024 CBC AUTO W DIFF MCHC 32.8 g/dL 32.0-3 6.0 Not Available [facility] (Lab Registration) [address] [place], [address], 07/10/2024 13:33:07 07/10/19 25 07/10/2024 CBC AUTO W DIFF platelet count 153 10 150-45 0 Not Available [facility] (Lab Registration) [address] [place], [address], 07/10/2024 13:33:07 07/10/19 25 07/10/2024 CBC AUTO W DIFF RDW 13.3 % 12.3-1 5.1 Not Available [facility] (Lab Registration) [address] [place], [address], 07/10/2024 13:33:07 07/10/19 25 07/10/2024 CBC AUTO W DIFF MPV 12.3 fL 7.4-10 .4 high Not Available [facility] (Lab Registration) [address] [place], [address], 07/10/2024 13:33:07 07/10/19 25 07/10/2024 CBC AUTO W DIFF granulocyte% 73.6 % 40-75 Not Available [facility] (Lab Registration) [address] [place], [address], 07/10/2024 13:33:07 07/10/19 25 07/10/2024 CBC AUTO W DIFF lymphocyte% 20.5 % 15-57 Not Available [facility] (Lab Registration) [address] [place], [address], 07/10/2024 13:33:07 07/10/19 25 07/10/2024 CBC AUTO W DIFF monocyte% 4.9 % 4.0-12 .0 Not Available [facility] (Lab Registration) [address] [place], [address], 07/10/2024 13:33:07 07/10/19 25 07/10/2024 CBC AUTO W DIFF eosinophil% 0.8 % 0.0-4. 0 Not Available [facility] (Lab Registration) [address] [place], [address], 07/10/2024 13:33:07 07/10/19 25 07/10/2024 CBC AUTO W DIFF basophil% 0.1 % 0.0-1. 0 Not Available [facility] (Lab Registration) [address] [place], [address], 07/10/2024 13:33:07 07/10/19 25 07/10/2024 CBC AUTO W DIFF immature granulocytes % 0.1 % 0.0-0. 8 Not Available [facility] (Lab Registration) [address] [place], [address], 07/10/2024 13:33:07 07/10/19 25 07/10/2024 CBC AUTO W DIFF granulocyte# 5.53 10 Not Available [facility] (Lab Registration) [address] [place], [address], 07/10/2024 13:33:07 07/10/19 25 07/10/2024 CBC AUTO W DIFF lymphocyte# 1.54 10 Not Available [facility] (Lab Registration) [address] [place], [address], 07/10/2024 13:33:07 07/10/19 25 07/10/2024 CBC AUTO W DIFF monocyte# 0.37 10 Not Available [facility] (Lab Registration) [address] [place], [address], 07/10/2024 13:33:07 07/10/19 25 07/10/2024 CBC AUTO W DIFF eosinophil# 0.06 10 Not Available [facility] (Lab Registration) [address] [place], [address], 07/10/2024 13:33:07 07/10/19 25 07/10/2024 CBC AUTO W DIFF basophil# 0.01 10 Not Available [facility] (Lab Registration) [address] [place], [address], 07/10/2024 13:33:07 07/10/19 25 07/10/2024 CBC AUTO W DIFF immature granulocytes # 0.01 10 Not Available [facility] (Lab Registration) [address], [place], [address], 07/10/2024 13:33:07 07/10/19 25 07/10/2024 CBC AUTO W DIFF manual differential NO Not Available [facility] (Lab Registration) [address] [place], [address], 07/10/2024 13:33:07 07/10/19 25 07/10/2024 CBC AUTO W DIFF note Tommy salazar other gaming noted testi ng perfo rmed at: [facility] [address] [place] [address] [phone] Giuseppe salazar MD CLIA: [id number] Not Available [facility] (Lab Registration) [address] [place], [address], 07/10/2024 13:33:07 07/10/19 25 07/10/2024 HEMOG LOBIN A1C glycosylated hemoglobin A1C 6.7 % 4.5-6. 2 high Not Available [facility] (Lab Registration) [address] [place], [address], 07/10/2024 13:38:34 07/10/19 25 07/10/2024 HEMOG LOBIN A1C estimated average glucose 146 mg/dL 82-131 high Not Available [facility] (Lab Registration) [address] [place], [address], 07/10/2024 13:38:34 07/10/19 25 07/10/2024 HEMOG LOBIN A1C note Unles s other gaming noted testi ng perfo rmed at: [facility] [address] [place] [address] [phone] Giuseppe salazar MD CLIA: [id number] Not Available [facility] (Lab Registration) [address] [place], [address], 07/10/2024 13:38:34 07/10/19 25 07/10/2024 VITAM IN B12 vitamin B12 1287 pg/mL 193-98 6 high Not Available [facility] (Lab Registration) [address] [place], [address], 07/10/2024 14:48:02 07/10/19 25 07/10/2024 VITAM IN B12 folate (folic acid), serum 30.2 NG/mL 8.6-58 .9 Not Available [facility] (Lab Registration) [address] [place], [address], 07/10/2024 14:48:02 07/10/19 25 07/10/2024 VITAM IN B12 note Unles s other gaming noted testi ng perfo rmed at: [facility] [address] [place] [phone] Giuseppe salazar MD CLIA: [id number] Not Available [facility] (Lab Registration) [address] [place], [address], 07/10/2024 14:48:02 07/10/19 25 07/10/2024 COMP METAB OLIC PANEL sodium 141 mmol/ L 136-14 5 Not Available [facility] (Lab Registration) [address] [place], [address], 07/10/2024 14:49:05 07/10/19 25 07/10/2024 COMP METAB OLIC PANEL potassium 4.2 mmol/ L 3.5-5. 1 Not Available [facility] (Lab Registration) [address] [place], [address], 07/10/2024 14:49:05 07/10/19 25 07/10/2024 COMP METAB OLIC PANEL chloride 105 mmol/ L 98-107 Not Available [facility] (Lab Registration) [address] [place], [address], 07/10/2024 14:49:05 07/10/19 25 07/10/2024 COMP METAB OLIC PANEL carbon dioxide 30 mmol/ L 21-32 Not Available [facility] (Lab Registration) [address] [place], [address], 07/10/2024 14:49:05 07/10/19 25 07/10/2024 COMP METAB OLIC PANEL anion gap 6.0 Not Available [facility] (Lab Registration) [address] [place], [address], 07/10/2024 14:49:05 07/10/19 25 07/10/2024 COMP METAB OLIC PANEL glucose 189 mg/dL 70-110 high Not Available [facility] (Lab Registration) [address] [place], [address], 07/10/2024 14:49:05 07/10/19 25 07/10/2024 COMP METAB OLIC PANEL blood urea nitrogen 14 mg/dL 7-18 Not Available [facility] (Lab Registration) [address] [place], [address], 07/10/2024 14:49:05 07/10/19 25 07/10/2024 COMP METAB OLIC PANEL creatinine 1.1 mg/dL 0.8-1. 3 Not Available [facility] (Lab Registration) [address] [place], [address], 07/10/2024 14:49:05 07/10/19 25 07/10/2024 COMP METAB OLIC PANEL BUN/creatini ne ratio 12.7 9-21 Not Available [facility] (Lab Registration) [address] [place], [address], 07/10/2024 14:49:05 07/10/19 25 07/10/2024 COMP METAB OLIC PANEL estimated glom filtration rate 71 mL/mi n >60- GFR LIMIT ATION : The eGFR equat ion CKD-E PI 2020 is not appli cable for pedia tric patie nts or great er than 90 years of age. The follo wing condi tions may alter the GFR resul t: extre mes in body size, malnu triti on or obesi ty, skele moshe muscl e disea se, parap legia or quadr ipleg ia, veget brenden diet or rapid ly gomez ing kiney funct ion. Not Available [facility] (Lab Registration) [address] [place], [address], 07/10/2024 14:49:05 07/10/19 25 07/10/2024 COMP METAB OLIC PANEL total protein 6.7 g/dL 6.4-8. 2 Not Available [facility] (Lab Registration) [address] [place], [address], 07/10/2024 14:49:05 07/10/19 25 07/10/2024 COMP METAB OLIC PANEL albumin 3.2 g/dL 3.4-5. 0 low Not Available [facility] (Lab Registration) [address] [place], [address], 07/10/2024 14:49:05 07/10/19 25 07/10/2024 COMP METAB OLIC PANEL calcium 9.1 mg/dL 8.5-10 .1 Not Available [facility] (Lab Registration) [address] [place], [address], 07/10/2024 14:49:05 07/10/19 25 07/10/2024 COMP METAB OLIC PANEL corrected calcium 9.7 mg/dL 8.5-10 .1 Not Available [facility] (Lab Registration) [address] [place], [address], 07/10/2024 14:49:05 07/10/19 25 07/10/2024 COMP METAB OLIC PANEL bilirubin total 1.2 mg/dL 0.4-1. 5 Not Available [facility] (Lab Registration) [address] [place], [address], 07/10/2024 14:49:05 07/10/19 25 07/10/2024 COMP METAB OLIC PANEL AST (SGOT) 17 U/L 15-37 Not Available [facility] (Lab Registration) [address] [place], [address], 07/10/2024 14:49:05 07/10/19 25 07/10/2024 COMP METAB OLIC PANEL ALT (SGPT) 27 U/L 12-78 Not Available [facility] (Lab Registration) [address] [place], [address], 07/10/2024 14:49:05 07/10/19 25 07/10/2024 COMP METAB OLIC PANEL alk phosphatase 65 U/L Not Available [facility] (Lab Registration) [address] [place], [address], 07/10/2024 14:49:05 07/10/19 25 07/10/2024 COMP METAB OLIC PANEL note Unles s other gaming noted testi ng perfo rmed at: [facility] [address] [facility] [place] [address] [phone] Giuseppe salazar MD CLIA: [id number] Not Available [facility] (Lab Registration) [address] [place], [address], 07/10/2024 14:49:05 07/10/19 25 07/10/2024 JULIA TIN ferritin 84 NG/mL 8-388 Not Available [facility] (Lab Registration) [address] [place], [address], 07/10/2024 14:49:07 07/10/19 25 07/10/2024 JULIA TIN note Unles s other gaming noted testi ng perfo rmed at: [facility] [place] [address] [phone] Giuseppe salazar MD CLIA: [id number] Not Available [facility] (Lab Registration) [address] , [place], [address], 07/10/2024 14:49:07 07/10/19 25 07/10/2024 IRON/ TIBC/ %SAT (IRON STUDI ES) iron 65 ug/dL 35-150 Not Available [facility] (Lab Registration) [address], [place], [address], 07/10/2024 14:49:08 07/10/19 25 07/10/2024 IRON/ TIBC/ %SAT (IRON STUDI ES) total iron bind cap (TIBC) 351 ug/dL 250-45 0 Not Available [facility] (Lab Registration) [address], [place], [address], 07/10/2024 14:49:08 07/10/19 25 07/10/2024 IRON/ TIBC/ %SAT (IRON STUDI ES) % saturation 19 % 15-55 Not Available [facility] (Lab Registration) [address], [place], [address], 07/10/2024 14:49:08 07/10/19 25 07/10/2024 IRON/ TIBC/ %SAT (IRON STUDI ES) note Unles s other gaming noted testi ng perfo rmed at: [facility] [address] [place] [address] [phone] Giuseppe salazar MD CLIA: [id number] Not Available [facility] (Lab Registration) [address] [place], [address], 07/10/2024 14:49:08 07/10/19 25 07/10/2024 CULTU RE URINE results [facility] 07-11 606 No Growt h at Day 1 [facility] 07-12 557 No Signi fican t Growt h at Day 2 Not Available [facility] (Lab Registration) [address] [place], [address], 07/12/2024 05:58:33 07/10/19 25 07/10/2024 CULTU RE URINE note Unles s other gaming noted testi ng perfo rmed at: [facility] [place] [address] [phone] Giuseppe salazar MD CLIA: [id number] Not Available [facility] (Lab Registration) [address] [place], [address], 07/12/2024 05:58:33 07/10/19 25 07/10/2024 micro album in/cr eatin ine, mass ratio , urine Microalbumin 80 mg/L Not Available [facility] [address] [place], [address], 07/10/2024 11:45:22 07/10/19 25 07/10/2024 micro album in/cr eatin ine, mass ratio , urine Creatinine 300 mg/dL Not Available [address] [place], [address], 07/10/2024 11:45:22 07/10/19 25 07/10/2024 micro album in/cr eatin ine, mass ratio , urine Ratio 30 - 300 mg/g Not Available [facility] [address] [place], [address], 07/10/2024 11:45:22 07/10/19 25 07/10/2024 urina lysis , dipst ick Leukocytes (reference range) negati ve Not Available [address] [place], [address], 07/10/2024 11:45:27 07/10/19 25 07/10/2024 urina lysis , dipst ick Nitrite (reference range:) negati ve Not Available [address] [place], [address], 07/10/2024 11:45:27 07/10/19 25 07/10/2024 urina lysis , dipst ick Urobilinogen (reference range) 4 Not Available [address] [place], [address], 07/10/2024 11:45:27 07/10/19 25 07/10/2024 urina lysis , dipst ick Protein (reference range) 30 Not Available [address] [place], [address], 07/10/2024 11:45:27 07/10/19 25 07/10/2024 urina lysis , dipst ick pH (reference range 5-8.5) 6.0 Not Available [address] [place], [address], 07/10/2024 11:45:27 07/10/19 25 07/10/2024 urina lysis , dipst ick Blood (reference range:) negati ve Not Available [address] [place], [address], 07/10/2024 11:45:27 07/10/19 25 07/10/2024 urina lysis , dipst ick Specific [place] (reference range) 1.020 Not Available [address] [place], [address], 07/10/2024 11:45:27 07/10/19 25 07/10/2024 urina lysis , dipst ick Ketone (reference range) negati ve Not Available [address] [place], [address], 07/10/2024 11:45:27 07/10/19 25 07/10/2024 urina lysis , dipst ick Bilirubin (reference range) negati ve Not Available [address] [place], [address], 07/10/2024 11:45:27 07/10/19 25 07/10/2024 urina lysis , dipst ick Glucose (reference range) 250 Not Available [address] [place], [address], 07/10/2024 11:45:27 07/10/19 25 07/10/2024 urina lysis , dipst ick Color (reference range: yellow-brown ) Yellow Not Available [address] [place], [address], 07/10/2024 11:45:27 08/19/19 25 08/18/2024 CULTU RE URINE results LT 08-19 512 No Signi figan t Growt h at Day 1 LT 08-20 516 No Signi fican t Growt h at Day 2 Not Available [facility] (Lab Registration) [address] [place] [address] [place], [address], 08/20/2024 05:18:41 08/19/19 25 08/18/2024 CULTU RE URINE note Unles s other gaming noted testi ng perfo rmed at: [facility] [address] [place] [address] [phone] Giuseppe salazar MD CLIA: [id number] Not Available [facility] (Lab Registration) [address] [place], [address], 08/20/2024 05:18:41 08/19/19 25 08/18/2024 urina lysis , dipst ick Leukocytes (reference range) negati ve Not Available [facility] [address] [place], [address], 08/18/2024 11:20:54 08/19/19 25 08/18/2024 urina lysis , dipst ick Nitrite (reference range:) negati ve Not Available [address] [place], [address], 08/18/2024 11:20:54 08/19/19 25 08/18/2024 urina lysis , dipst ick Urobilinogen (reference range) 1 Not Available [address] [place], [address], 08/18/2024 11:20:54 08/19/19 25 08/18/2024 urina lysis , dipst ick Protein (reference range) negati ve Not Available [address] [place], [address], 08/18/2024 11:20:54 08/19/19 25 08/18/2024 urina lysis , dipst ick pH (reference range 5-8.5) 5.5 Not Available [address] [place], [address], 08/18/2024 11:20:54 08/19/19 25 08/18/2024 urina lysis , dipst ick Blood (reference range:) negati ve Not Available [address] [place], [address], 08/18/2024 11:20:54 08/19/19 25 08/18/2024 urina lysis , dipst ick Specific [place] (reference range) 1.020 Not Available [address] [place], [address], 08/18/2024 11:20:54 08/19/19 25 08/18/2024 urina lysis , dipst ick Ketone (reference range) negati ve Not Available [address] [place], [address], 08/18/2024 11:20:54 08/19/19 25 08/18/2024 urina lysis , dipst ick Bilirubin (reference range) negati ve Not Available [address] [place], [address], 08/18/2024 11:20:54 08/19/19 25 08/18/2024 urina lysis , dipst ick Glucose (reference range) 250 Not Available [address] [place], [address], 08/18/2024 11:20:54 08/19/19 25 08/18/2024 urina lysis , dipst ick Color (reference range: yellow-brown ) Yellow Not Available [address] [place], [address], 08/18/2024 11:20:54 10/09/19 25 10/08/2024 HEMOG LOBIN A1C glycosylated hemoglobin A1C 7.2 % 4.5-6. 2 high Not Available [facility] (Lab Registration) [address] [place], [address], 10/08/2024 13:24:19 10/09/19 25 10/08/2024 HEMOG LOBIN A1C estimated average glucose 160 mg/dL 82-131 high Not Available [facility] (Lab Registration) [address] [place], [address], 10/08/2024 13:24:19 10/09/19 25 10/08/2024 HEMOG LOBIN A1C note Unles s other gaming noted testi ng perfo rmed at: [facility] [address] [place] [address] [phone] Giuseppe salazar MD CLIA: [id number] Not Available [facility] (Lab Registration) [address] [place], [address], 10/08/2024 13:24:19 10/09/19 25 10/08/2024 COMP METAB OLIC PANEL sodium 141 mmol/ L 136-14 5 Not Available [facility] (Lab Registration) [address] [place], [address], 10/08/2024 13:34:09 10/09/19 25 10/08/2024 COMP METAB OLIC PANEL potassium 3.9 mmol/ L 3.5-5. 1 Not Available [facility] (Lab Registration) [address] [place], [address], 10/08/2024 13:34:09 10/09/19 25 10/08/2024 COMP METAB OLIC PANEL chloride 106 mmol/ L 98-107 Not Available [facility] (Lab Registration) [address] [place], [address], 10/08/2024 13:34:09 10/09/19 25 10/08/2024 COMP METAB OLIC PANEL carbon dioxide 25 mmol/ L 21-32 Not Available [facility] (Lab Registration) [address] [place], [address], 10/08/2024 13:34:09 10/09/19 25 10/08/2024 COMP METAB OLIC PANEL anion gap 10.0 Not Available [facility] (Lab Registration) [address] [place], [address], 10/08/2024 13:34:09 10/09/19 25 10/08/2024 COMP METAB OLIC PANEL glucose 181 mg/dL 70-110 high Not Available [facility] (Lab Registration) [address] [place], [address], 10/08/2024 13:34:09 10/09/19 25 10/08/2024 COMP METAB OLIC PANEL blood urea nitrogen 21 mg/dL 7-18 high Not Available [facility] (Lab Registration) [address] [place], [address], 10/08/2024 13:34:09 10/09/19 25 10/08/2024 COMP METAB OLIC PANEL creatinine 0.9 mg/dL 0.8-1. 3 Not Available [facility] (Lab Registration) [address], [place], [address], 10/08/2024 13:34:09 10/09/19 25 10/08/2024 COMP METAB OLIC PANEL BUN/creatini ne ratio 23.3 9-21 high Not Available [facility] (Lab Registration) [address], [place], [address], 10/08/2024 13:34:09 10/09/19 25 10/08/2024 COMP METAB OLIC PANEL estimated glom filtration rate 90 mL/mi n >60- GFR LIMIT ATION : The eGFR equat ion CKD-E PI 2020 is not appli cable for pedia tric patie nts or great er than 90 years of age. The follo wing condi tions may alter the GFR resul t: extre mes in body size, malnu triti on or obesi ty, skele moshe muscl e disea se, parap legia or quadr ipleg ia, veget brenden diet or rapid ly gomez ing kiney funct ion. Not Available [facility] (Lab Registration) [address], [place], [address], 10/08/2024 13:34:09 10/09/19 25 10/08/2024 COMP METAB OLIC PANEL osmolality (calculated) 301 mOsm/ kg 275-30 1 OSMOL ALITY IS A CALCU LATIO N UTILI ZING THE SERUM /PLAS MA SODIU M, GLUCO SE AND UREA NITRO GEN (BUN) LEVEL S. FOR THE MOST ACCUR ATE RESUL T A MEASU RED SERUM OSMOL ALITY IS SUGGE STED. Not Available [facility] (Lab Registration) [address], [place], [address], 10/08/2024 13:34:09 10/09/19 25 10/08/2024 COMP METAB OLIC PANEL total protein 6.5 g/dL 6.4-8. 2 Not Available [facility] (Lab Registration) [address], [place], [address], 10/08/2024 13:34:09 10/09/19 25 10/08/2024 COMP METAB OLIC PANEL albumin 3.3 g/dL 3.4-5. 0 low Not Available [facility] (Lab Registration) [address], [place], [address], 10/08/2024 13:34:09 10/09/19 25 10/08/2024 COMP METAB OLIC PANEL calcium 8.8 mg/dL 8.5-10 .1 Not Available [facility] (Lab Registration) [address], [place], [address], 10/08/2024 13:34:09 10/09/19 25 10/08/2024 COMP METAB OLIC PANEL corrected calcium 9.4 mg/dL 8.5-10 .1 Not Available [facility] (Lab Registration) [address], [place], [address], 10/08/2024 13:34:09 10/09/19 25 10/08/2024 COMP METAB OLIC PANEL bilirubin total 1.1 mg/dL 0.4-1. 5 Not Available [facility] (Lab Registration) [address] [place], [address], 10/08/2024 13:34:09 10/09/19 25 10/08/2024 COMP METAB OLIC PANEL AST (SGOT) 16 U/L 15-37 Not Available [facility] (Lab Registration) [address] [place], [address], 10/08/2024 13:34:09 10/09/19 25 10/08/2024 COMP METAB OLIC PANEL ALT (SGPT) 29 U/L 12-78 Not Available [facility] (Lab Registration) [address] [place], [address], 10/08/2024 13:34:09 10/09/19 25 10/08/2024 COMP METAB OLIC PANEL alk phosphatase 59 U/L Not Available [facility] (Lab Registration) [address], [place], [address], 10/08/2024 13:34:09 10/09/1910/08/2024 COMP METAB OLIC PANEL note Unles s other gaming noted testi ng perfo rmed at: [facility] [address] [place] [address] [phone] Giuseppe salazar MD CLIA: [id number] Not Available [facility] (Lab Registration) [address], [place], [address], 10/08/2024 13:34:09 10/09/1910/08/2024 CULTU RE URINE results [facility] 10-09 610 No Signi figan t Growt h at Day 1 [facility] 10-10 657 No Signi fican t Growt h at Day 2 Not Available [facility] (Lab Registration) [address], [place], [address], 10/10/2024 06:58:56 10/09/1910/08/2024 CULTU RE URINE note Unles s other gaming noted testi ng perfo rmed at: [facility] [address] [place] [address] [phone] Giuseppe salazar MD CLIA: [id number] Not Available [facility] (Lab Registration) [address] [place], [address], 10/10/2024 06:58:56 Result Notes None recorded. Problems Name Problem SNOMED Code Status Onset Date Resolution Date Notes Provider Name and Address Organization Details Recorded Time Myocardial infarction 66824770 Active 2021 SAMANTHA Oneill [facility] & [place] 10:33:40 History of urinary stone 106899661 Active 2021 Jayjay Braga null, [place] [facility] [place] [facility] [place] 4 10:33:25 Diabetes mellitus 14562033 Active 2021 Jayjay Br[place] null, [place] [facility] [place] [facility] [place] 4 10:33:18 Hyperlipidemia 91775279 Active 2021 Jayjay Br[place], [place] [facility] [place] [facility] & [place] 4 10:33:28 Obesity 101692590 Active 2021 Jayjay Br[place] [facility] [place] 4 10:33:46 Hypertensive disorder 90422197 Active 2021 Jayjay Br[place] [facility] [place] 4 10:33:30 Seasonal allergic rhinitis 423057162 Active 2021 Jayjay Braga null, [place] [facility] & [place] 4 10:34:19 Screening for malignant neoplasm of colon Active 2022 Jayjay Braga null, [place] [facility] [place] [facility] & [place] 4 10:34:15 Acute cystitis 48117953 Active 2022 Jayjay Braga null, [place] [facility] [place] [facility] & [place] 4 10:33:07 Mixed hyperlipidemia 134535507 Active 2022 Jayjay Braga [place] [facility] [place] [facility] & [place] 4 10:33:35 Uncontrolled type 2 diabetes mellitus 678478516 Active 2022 Jayjay Br[place] [facility] [place] 4 10:34:29 Swelling of bilateral lower limbs 609137583 Active 2022 Jayjay Br[place] [facility] [place] 4 10:34:22 Peripheral vascular disease 726609425 Active 2022 Jayjay Br[place] [facility] [place] 4 10:34:12 Neuropathy 610344629 Active 2022 Jayjay Br[place] [facility] [place] 4 10:33:44 Tubular adenomatous polyp of colon 553326498 Active 2022 Jayjay Br[place] null, [place] [facility] [place] [facility] & [place] 4 10:34:26 Internal hemorrhoids 06737096 Active 2022 Jayjay Br[place] null, [place] [facility] [place] [facility] & [place] 4 10:33:33 Constipation 71477054 Active 2022 Jayjay Br[place] [facility] [place] [facility] & [place] 4 10:33:15 Essential hypertension 31834668 Active 2023 Jayjay Br[place] null, [place] [facility] [place] [facility] & [place] 4 10:33:22 Anemia 753044756 Active 2023 Jayjay Braga null, [place] [facility] [place] [facility] & [place] 4 10:33:09 Problem Notes None recorded. Procedures Surgical History Date Name Laterality Status Provider Name and Address Organization Details Recorded Time 024 Medicare Annual Wellness Visit Health Risk Assessment completed Lars Gao [place] [facility] [place] [facility] & [place] 12/17/2023 10:37:27 024 Cataract Surgery completed Lars Diazson [place] - [facility] - [facility] & [place] 12/17/2023 10:33:28 024 LASIK completed THOMAS LAL NP [address] [place] [address], [id number], [place] - [facility] - [facility] & [place] 12/17/2023 11:19:34 023 Colonoscopy completed Yanna [place] - [facility] - [facility] & [place] 11/22/2023 16:27:13 023 Colonoscopy completed Yanna Herbert [place] [facility] [place] [facility] & [place] 11/22/2023 16:26:20 021 cystourethroscopy with biopsy of ureter completed Yanna Herbert [place] [facility] [place] [facility] & [place] 02/12/2024 13:11:17 999 Back Surgery completed Naida SINGH - [facility] - [facility] & [place] 08/06/2022 13:44:37 Angioplasty completed Naida Benjamin [facility] & [place] 08/06/2022 13:44:25 Imaging Results None recorded. Procedure Notes None recorded. Medical Equipment None Reported. Allergies Allergen ID Allergen Name Allergen Category Reaction Reaction Severity Criticality Documentation Date Start Date Code Code System Note Provider Name and Address Organization Details Recorded Time 87105 No known allergy (situatio n) Not available Not available Not available Not available 11/15/2022 02328 6003 SNOMED Sejal son [facility] & [place] 3 14:24:28 No known drug allergies Medications Name [...] propionate 50 mcg/actuati on nasal spray,suspe nsion [place] 2 sprays every day by intranasa l [...] Ultra-Fine Mini Pen Needle 31 gauge x 07/26 completed Not Available Not Available Not Available [...] Solution Pen-injec tor 2 MG/3ML do se:0.0 route:CHARLES BCUT freq uency:QWE EK 11/23 completed Not Available Not Available Not Available Vitals Date Recorded Body height Body mass index (BMI) Body weight Body temperature Oxygen saturation Oxygen saturation in Arterial blood by Pulse oximetry Heart rate Respiratory rate Systolic And Diastolic Provider Name and Address Organization Details Last Updated DateTime 5 167.64 cm 42 kg/m2 419615. 02 g 97.4 [degF] 98 % 98 % 78 /min 18 /min 122/69 mm[Hg] [facility] & [place] 5 11:39:28 Date Recorded Body height Body mass index (BMI) Body weight Body temperature Oxygen saturation Oxygen saturation in Arterial blood by Pulse oximetry Heart rate Respiratory rate Systolic And Diastolic Provider Name and Address Organization Details Last Updated DateTime 5 167.64 cm 41.5 kg/m2 870901. 24 g 97.2 [degF] 96 % 96 % 69 /min 18 /min 123/68 mm[Hg] [facility] SAMANTHA [facility] & [place] 5 11:19:57 Date Recorded Body height Body mass index (BMI) Body weight Body temperature Oxygen saturation Oxygen saturation in Arterial blood by Pulse oximetry Heart rate Respiratory rate Systolic And Diastolic Provider Name and Address Organization Details Last Updated DateTime 5 167.64 cm 41.8 kg/m2 244174. 42 g 97.2 [degF] 96 % 96 % 72 /min 18 /min 106/62 mm[Hg] [facility] SAMANTHA [facility] & [place] 5 11:29:05 Date Recorded Body height Body mass index (BMI) Body weight Body temperature Oxygen saturation Oxygen saturation in Arterial blood by Pulse oximetry Heart rate Systolic And Diastolic Provider Name and Address Organization Details Last Updated DateTime 4 167.64 cm 43.4 kg/m2 027663. 35 g 97.3 [degF] 98 % 98 % 80 /min 116/61 mm[Hg] Lars lopez [facility] [place] 4 14:15:52 Date Recorded Body height Body mass index (BMI) Body weight Body temperature Oxygen saturation Oxygen saturation in Arterial blood by Pulse oximetry Heart rate Respiratory rate Systolic And Diastolic Provider Name and Address Organization Details Last Updated DateTime 4 167.64 cm 43.9 kg/m2 944800. 12 g 98.8 [degF] 98 % 98 % 64 /min 18 /min 140/65 mm[Hg] Jayjay Braga [facility] [place] 4 10:31:55 Social History Question Answer Notes LastModified by Organizat ion Details LastModified Time Tobacco Smoking Status Never Smoker Not Available [facility] 09/28/2022 13:04:41 Do You Have An Advance Directive? No Information not available 11/23/2022 Do You Wear A Helmet When Biking? Yes [email or web address] Information not available 03/23/2024 Are You Blind Or Do You Have Difficulty Seeing? No Information not available 11/23/2022 What Is Your Level Of Caffeine Consumption? Occasional [email or web address] Information not available 03/11/2023 In The 14 Days Before Symptom Onset, Have You Had Close Contact With A Laboratory-confir med COVID-19 While That Case Was Ill? No [email or web address] Information not available 03/23/2024 In The 14 Days Before Symptom Onset, Have You Had Close Contact With A Person Who Is Under Investigation For COVID-19 While That Person Was Ill? No [email or web address] Information not available 03/23/2024 Have You Been To An Area Known To Be High Risk For COVID-19? No Information not available 03/23/2024 Are You Deaf Or Do You Have Serious Difficulty Hearing? No Information not available 12/17/2023 What Type Of Diet Are You Following? REGULAR Information not available 03/23/2024 Have You Processed Blood Or Body Fluids From An Ebola Virus Disease Patient Without Appropriate PPE? No [email or web address] Information not available 03/23/2024 Do You Reside In Or Have You Traveled To An Area Where Ebola Virus Transmission Is Active? No [email or web address] Information not available 03/23/2024 Have There Been Any Changes To Your Family Or Social Situation? No [email or web address] Information no t available 03/23/2024 What Is The Fluoride Status Of Your Home? Unknown [email or web address] Information not available 03/23/2024 Are There Any Guns Present In Your Home? No [email or web address] Information not available 03/23/2024 Have You Recently Or Are You Planning To Travel To An Area With Zika Virus? No [email or web address] Information not available 03/23/2024 Do You Use Insect Repellent Routinely? Yes [email or web address] Information not available 03/23/2024 In General, Would You Say Your Health Is Good [email or web address] Information not available 03/23/2024 How Would You [...] Bread, 1 Cup Of Whole-grain Or High-fiber Tohyi-vw-wkv Cereal, 1 2 Cup Of Cooked Cereal Such As Oatmeal, Or 1 2 Cup Of Cooked Brown Rice Or Whole Wheat Pasta.) 1-2 Servings Per Day [email or web address] Information not available 03/23/2024 In The Past 7 Days, How Many Servings Of Fried Or High-fat Foods Did You Typically Eat Each Day? (Examples Include Fried Chicken, Fried Fish, Galeana, Luxembourgish [place], Potato Chips, [place] Chips, Doughnuts, Creamy Salad Dressings, And Foods Made With Whole Milk, Cream, Cheese, Or Mayonnaise.) 1-2 Servings Per Day Information not available 03/23/2024 In The Past 7 Days, How Many Sugar-sweetened (not Diet) Beverages Did You Typically Consume Each Day 1-2 Drinks Per Day Information not available 03/23/2024 Each Night, How Many Hours Of Sleep Do You Usually Get? 6-7 Hours Information not available 12/17/2023 Do You Snore Or Has Anyone Told You That You Snore? No Information not available 03/23/2024 In The Past 7 Days, How Often Have You [place] Sleepy During The Daytime? Sometimes [email or web address] Information not available 03/23/2024 Do You Have [...] Do You Have A Medical Power Of Reception Centre Manager? No [email or web address] Information not available 03/23/2024 What Was The Date Of Your Most Recent Tobacco Screening? 10/06/2024 [email or web address] Information not available 10/08/2024 Do You Have Any Pets? No Information not available 03/23/2024 What Is Your Relationship Status? Information not available 12/17/2023 Do You Use Your Seat Belt Or Car Seat Routinely? Yes Information not available 12/17/2023 Are You Sexually Active? Yes Information not available 12/17/2023 Do You Have Smoke And Carbon Monoxide Detectors In Your Home? Yes [email or web address] Information not available 03/23/2024 Are You Passively Exposed To Smoke? No Information no t available 12/17/2023 Do You Use Sunscreen Routinely? Yes [email or web address] Information not available 03/23/2024 Has Tobacco Cessation Counseling Been Provided? No [email or web address] Information not available 03/11/2023 Do You Have Difficulty Walking Or Climbing Stairs? No [email or web address] Information not available 03/23/2024 Are You Currently In School? No [email or web address] Information not available 03/23/2024 Sex: Unknown Functional Status Question Answer Note LastModified by Organizat ion Details LastModified Time Do you use any illicit or recreational drugs? No CHART_[email or web address] Information not available 09/28/2022 Do you or have you ever used any other forms of tobacco or nicotine? No [email or web address] Information not available 03/11/2023 What is your level of alcohol consumption? None CHART_MERGE Information not available 09/28/2022 Are you currently employed? No [email or web address] Information not available 03/23/2024 Do you have transportation difficulties? No Information not available 12/17/2023 Are you able to walk? YESWOREST [email or web address] Information not available 03/23/2024 Do you have difficulty doing errands alone? No [email or web address] Information not available 03/23/2024 Are you able to care for yourself? Yes Information n ot available 12/17/2023 Do you have difficulty dressing or bathing? No [email or web address] Information not available 03/23/2024 What is your exercise level? Occasional [email or web address] Information not available 03/23/2024 Mental Status Question Answer Note LastModified by Organizat ion Details LastModified Time Do you feel stressed (tense, restless, nervous, or anxious, or unable to sleep at night)? [id number] [email or web address] Information not available 03/23/2024 Do you have [...] 13:10:23 Sister Hepatic failure CHART_MERGE Not available 05/1 01/2023 13:04:39 Notes:Father age 93 Medical History Condition Response Spine Problems Y Obstructive Sleep Apnea Y Obesity Y Vision or Eye Problems Y High Cholesterol Y Allergies/Hayfever Y Kidney or Bladder Problems Y GI Problems Y Heart Attack (VT) Y Diabetes Y Back Problems Y Sleep Apnea Y Heart Disease Y Hypertension Y Immunizations Vaccine Type Date Status Note Provider Nam e and Address Organization Details Recorded Time COVID-19 vaccine, vector-nr, rS-Ad26, PF, 0.5 mL 1 completed Not Available [facility] 03/11/2023 08:52:08 Influenza, high-dose, trivalent, PF 7 completed Not Available [facility] 03/11/2023 08:52:08 Influenza, high-dose, quadrivalent, PF 0 completed Not Available [facility] 03/11/2023 08:52:08 Influenza, high-dose, quadrivalent, PF 3 completed THOMAS LAL NP [address] [place] [address], [id number], [place] - [facility] [place] 03/18/2023 09:02:46 Influenza, high-dose, quadrivalent, PF 2 completed THOMAS LAL NP [address] [place] [address], [id number], [place] - [facility] [place] [facility] [place] 03/01/2022 12:05:10 COVID-19 vaccine, vector-nr, rS-Ad26, PF, 0.5 mL 1 completed Not Available [facility] 03/11/2023 08:52:08 Pneumococcal conjugate PCV 13 0 completed Not Available [facility] 03/11/2023 08:52:08 Influenza, high-dose, trivalent, PF 4 completed THOMAS LAL NP [address] [place] [address], [id number], [place] - [facility] [place] 03/24/2024 09:56:55 Past Encounters Encounter ID Performer Location Encounter Start Date Encounter Closed Date Diagnosis/Indication Diagnosis SNOMED-CT Code Diagnosis ICD10 Code Diagnosis Note [id number] THOMAS LAL NP [address] [address] 01/31/2022 10:17:55 01/31/2022 15:56:22 Type 2 diabetes mellitus 28265892 E11.9 [id number] [address] 02/27/2022 11:03:09 02/27/2022 13:10:00 Osteoarthritis 619059132 M19.90 Discussed medication regimen as well as diet and exercise modificati on. Patient will apply heat/ice as needed for pain relief. Fall W19.XXXA discussed fall prevention , denies any concerns for trauma, need for xrays Mixed hyperlipidemia 267 358450 E78.2 reinforced lifestyle changes Gastroesop hageal reflux disease without esophagitis 322406542 K21.9 Avoid spicy foods, carbonated beverages, lying down 30 minutes to 1 hour after eating Eat smaller portion sizes Take medication s as prescribed Weight management Seasonal a llergic rhinitis 768476546 J30.2 Administra tion of influenza vaccine 96192272 Z23 Uncontroll ed type 2 diabetes mellitus 158692796 E11.65 hgba1c is 8.7 and not meeting goal Anemia 789256264 D64.9 plans to recheck cbc with iron workup Thrombocyt openic disorder 365237995 D69.6 platelets low, asymptomat ic, recheck lab work next visit with hgba1c [id number] [address] [address] 03/19/2022 12:24:39 03/19/2022 13:18:28 Flank pain 913292537 R10.9 CT ordered due to hematuria, CVA tenderness ; hx of kidney stones Acute cystitis 00549697 N30.01 will send for culturehig h risk due to self cath [id number] [address] [address] 04/02/2022 11:54:52 04/02/2022 12:08:50 Acute cystitis 37086805 N30.01 [id number] KIRAN Smith[address] [address] 05/10/2022 08:53:03 05/10/2022 09:32:07 Pain in throat 949824558 R07.0 J01.01 R05.1 Patient likely has an acute bacterial sinusitis. Will treat as below.No signs of preseptal or orbital cellulitis , meningismu s, or neurologic changes concerning for intracrani al process. Instructed family to monitor patient closely and call office for any of these symptoms.S upportive care reviewed: raising HOB, humidifier use, saline nasal spray, rest, encourage PO fluids and monitor hydration status, infection control measures.R ecommended acetaminop hen/ibupro fen PRN pain, fever; reviewed appropriat e doses.Foll ow-up as below. monitor BG closely when taking steroid packincrea se water intakemoni tor for worsening symptoms. [id number] [address] [address] 05/28/2022 11:53:28 05/28/2022 12:13:02 Diabetes mellitus 50371484 E11.9 [id number] [address] [address] 05/30/2022 10:22:43 05/30/2022 11:21:42 Hyperlipidemia 85834919 E78.5 Patient advised to exercise, eat a prudent diet and lose weight as appropriat e. Hypertensive disorder 38 311951 I10 educated on goal of less than 130/90advi sed low sodium diet, healthy lifestyle including exercise as ablecontin ue current medication regimenER if any symptoms such as chest pain, shortness of breath Mixed hyperlipidemia 267 944444 E78.2 reinforced lifestyle changes Gastroesop hageal reflux disease without esophagitis 092111634 K21.9 Avoid spicy foods, carbonated beverages, lying down 30 minutes to 1 hour after eatingEat smaller portion sizesTake medication s as prescribed Weight management Seasonal a llergic rhinitis 199415830 J30.2 Uncontroll ed type 2 diabetes mellitus 866349826 E11.65 hgba1c is 7.0great worktake medication s as prescribed awaiting [id number] forced diet and lifestyle changesdai ly foot checkyearl y eye examfollow up every 3 months will be getting ozempic from patient assistance Neuropathy 930787385 G62 .9 controlled continue medication as prescribed [id number] THOMAS LAL NP zz[facility]gR[facility] [address] [address] 08/27/2022 10:21:15 08/27/2022 11:49:04 Screening for malignant neoplasm of colon 960399143 Z12.11 Hypertensive disorder 38 089295 I10 educated on goal of less than 130/90advi sed low sodium diet, healthy lifestyle including exercise as ablecontin ue current medication regimenER if any symptoms such as chest pain, shortness of breath lab work drawn in clinic by meek martin Acute cystitis 12056051 N30.01 rechecked UA todaywill give cipro to have on had if needs in future Mixed hyperlipidemia 267 954879 E78.2 reinforced lifestyle changesPat ient advised to exercise, eat a prudent diet and lose weight as appropriat e. Uncontroll ed type 2 diabetes mellitus 799556895 E11.65 hgba1c last checked May.19.0take medication s as prescribed awaiting zouw0floju forced diet and lifestyle changesdai ly foot checkyearl y eye examfollow up every 3 months ozempic 0.5 mg once a week from patient assistance Swelling o f bilateral lower limbs 214331152 M79.89 lasix with potassiume levate legscompre ssion socks Peripheral vascular disease 466983345 I73.9 has appt scheduled with cardiology ; will have US done at that timecontin ue statin therapy, weight management , control of chronic disease Neuropathy 924899203 G62 .9 controlled continue medication as prescribed vicente reviewed Seasonal a llergic rhinitis 453894387 J30.2 discussed prevention education belowtake allergic medication as prescribed f/u if symptoms persist or worsenOUTD OOR recommenda tions-Stay indoors on dry, windy days. The best time to go outside is after a good rain, which helps clear pollen from the air.Avoid lawn mowing, weed pulling and other gardening chores that stir up allergens. Remove clothes you've worn outside and shower to rinse pollen from your skin and hair.Don't hang laundry outside pollen can stick to sheets and towels.Wea r a face mask if you do outside chores.IND OOR Recommenda tions-Use air conditioni ng in your house and car.-If you have forced air heating or air conditioni ng in your house, use high-effic iency filters and follow regular maintenanc e schedules. Keep indoor air dry with a dehumidifi er.Use a portable high-effic iency particulat e air (HEPA) filter in your bedroom.Cl bishnu floors often with a vacuum seed cleaner operator that has a HEPA filter. Gastroesop hageal reflux disease without esophagitis 589850036 K21.9 Avoid spicy foods, carbonated beverages, lying down 30 minutes to 1 hour after eatingEat smaller portion sizesTake medication s as prescribed Weight management [id number] THOMAS LAL NP [address] [place] [address] 11/23/2022 10:52:58 11/23/2022 12:21:08 Hypertensive disorder 59053929 I10 educated on goal of less than 130/90advi sed low sodium diet, healthy lifestyle including exercise as ablecontin ue current medication regimenER if any symptoms such as chest pain, shortness of breath lab work drawn in [facility] Peripheral vascular disease 257152416 I73.9 continue with cardiology who is managingco ntinue statin therapy, weight management , control of chronic disease Neuropathy 019531251 G62 .9 controlled continue medication as prescribed vicente reviewed Type 2 radha betes mellitus 31994212 E11.9 take medication s as prescribed awaiting veif8edvuc forced diet and lifestyle changesdai ly foot checkyearl y eye examfollow up every 3 months Mixed hyperlipidemia 267 105674 E78.2 Patient advised to exercise, eat a prudent diet and lose weight as appropriat e. Uncontroll ed type 2 diabetes mellitus 664445916 E11.65 Lymphadenopathy 81842718 R59.9 US if no improvemen t in 2 to 4 weeksmonit or for changesER if any urgent signs or symptoms arise [id number] THOMAS LAL NP [address] [place] [address] 01/07/2023 15:05:28 01/07/2023 15:54:54 Colitis 43037671 K52.9 symptomati c management bland diethydrat ionantibio tics as prescribed ER if any urgent signs or symptoms arise Acute sinusitis 33836852 J01.90 Continue allergy pills. We will hold off on Flonase nasal spray until bacterial infection resolves.h ydration . Dysuria 03817378 R30.0 Check urinalysis .recurrent UTI [id number] Nadine Angulo NP [facility] [place] [address] 02/13/2023 09:19:08 02/13/2023 10:00:19 Tubular adenomatous polyp of colon 434983579 D12.6 Several small polyps resected on colonoscop y 02/07/2023 . Pathology consistent with tubular adenoma negative for high-grade dysplasia. No further colonoscop y recommende d based on patient's age. Internal hemorrhoids 904 28865 K64.8 Medium-siz e internal hemorrhoid s noted on colonoscop y. Recommend daily use of fiber supplement s. Constipation 87159580 K5 9.00 experienci ng some constipati on following colonoscop y 02/07/2023 . I have recommende d taking MiraLax 17 g p.o. daily for treatment. Patient to call with continued symptoms. [id number] THOMAS LAL NP [facility] [address] [place] [address] 03/11/2023 10:06:25 03/11/2023 11:18:51 Hypertensive disorder 77279954 I10 educated on goal of less than 130/90advi sed low sodium diet, healthy lifestyle including exercise as ablecontin ue current medication regimenER if any symptoms such as chest pain, shortness of breath Peripheral vascular disease 753477059 I73.9 continue with cardiology who is managingco ntinue statin therapy, weight management , control of chronic disease Neuropathy 129536633 G62 .9 controlled continue medication as prescribed vicente reviewed Type 2 radha betes mellitus 12983072 E11.9 E11.65 take medication s as prescribed awaiting wigh2joweh forced diet and lifestyle changesdai ly foot checkyearl y eye examfollow up every 3 months Anemia 255074171 D64.9 awaiting lab work Mixed hyperlipidemia 267 855301 E78.2 Patient advised to exercise, eat a prudent diet and lose weight as appropriat e. Gastroesop hageal reflux disease without esophagitis 281142576 K21.9 Avoid spicy foods, carbonated beverages, lying down 30 minutes to 1 hour after eatingEat smaller portion sizesTake medication s as prescribed Weight management Seasonal a llergic rhinitis 300459046 J30.2 discussed prevention education belowtake allergic medication as prescribed f/u if symptoms persist or worsenOUTD OOR recommenda tions-Stay indoors on dry, windy days. The best time to go outside is after a good rain, which helps clear pollen from the air.Avoid lawn mowing, weed pulling and other gardening chores that stir up allergens. Remove clothes you've worn outside and shower to rinse pollen from your skin and hair.Don't hang laundry outside pollen can stick to sheets and towels.Wea r a face mask if you do outside chores.IND OOR Recommenda tions-Use air conditioni ng in your house and car.-If you have forced air heating or air conditioni ng in your house, use high-effic iency filters and follow regular maintenanc e schedules. Keep indoor air dry with a dehumidifi er.Use a portable high-effic iency particulat e air (HEPA) filter in your bedroom.Cl bishnu floors often with a vacuum seed cleaner operator that has a HEPA filter. Administra tion of influenza vaccine 44916341 Z23 [id number] Cameron Quinn MD [address] [place] [address] 03/19/2023 14:03:43 03/19/2023 14:13:00 Vitamin B12 deficiency (non anemic) 96185146 E53.8 [id number] Cameron Quinn MD [address] [place] [address] 06/10/2023 10:44:27 06/11/2023 06:12:38 Hypertensive disorder 81859689 I10 educated on goal of less than 130/90advi sed low sodium diet, healthy lifestyle including exercise as ablecontin ue current medication regimenER if any symptoms such as chest pain, shortness of breath Peripheral vascular disease 574981156 I73.9 continue with cardiology who is managingco ntinue statin therapy, weight management , control of chronic disease Neuropathy 865638837 G62 .9 controlled continue medication as prescribed vicente reviewed Type 2 radha betes mellitus 73122710 E11.9 E11.65 take medication s as prescribed awaiting fkrj6zliwo forced diet and lifestyle changesdai ly foot checkyearl y eye examfollow up every 3 months Anemia 772124500 D64.9 awaiting lab work Mixed hyperlipidemia 267 692836 E78.2 Patient advised to exercise, eat a prudent diet and lose weight as appropriat e. Chronic ur inary tract infection 014821707 N39.0 Long-term drug therapy 373395149 Z79.899 Recurrent urinary tract infection 385368889 N39.0 Office UA suggesting UTI, urine sent for culture and office will call after culture received. Take all medicines prescribed for you for the allotted time period. Push fluids especially water. If no better in 48-72 hours or if you develop abdominal or back pain, with fever chills nausea or vomiting come back or go to the emergency room immediatel y Gastroesop hageal reflux disease without esophagitis 696291299 K21.9 Avoid spicy foods, carbonated beverages, lying down 30 minutes to 1 hour after eatingEat smaller portion sizesTake medication s as prescribed Weight management Swelling o f bilateral lower limbs 732982213 M79.89 use lasixcompr ession sockseleva tion Seasonal a llergic rhinitis 200438581 J30.2 discussed prevention education belowtake allergic medication as prescribed f/u if symptoms persist or worsenOUTD OOR recommenda tions-Stay indoors on dry, windy days. The best time to go outside is after a good rain, which helps clear pollen from the air.Avoid lawn mowing, weed pulling and other gardening chores that stir up allergens. Remove clothes you've worn outside and shower to rinse pollen from your skin and hair.Don't hang laundry outside pollen can stick to sheets and towels.Wea r a face mask if you do outside chores.IND OOR Recommenda tions-Use air conditioni ng in your house and car.-If you have forced air heating or air conditioni ng in your house, use high-effic iency filters and follow regular maintenanc e schedules. Keep indoor air dry with a dehumidifi er.Use a portable high-effic iency particulat e air (HEPA) filter in your bedroom.Cl bishnu floors often with a vacuum seed cleaner operator that has a HEPA filter. [id number] Cameron Quinn MD [facility] [address] [place] [address] 09/09/2023 08:26:05 09/09/2023 09:39:24 Uncontrolled type 2 diabetes mellitus 138162757 E11.65 take medication s as prescribed awaiting ssfk0mppcg forced diet and lifestyle changesdai ly foot checkyearl y eye examfollow up every 3 months Essential hypertension 20390515 I10 educated on goal of less than 130/90advi sed low sodium diet, healthy lifestyle including exercise as ablecontin ue current medication regimen; hasnt taken medication todayER if any symptoms such as chest pain, shortness of breath Long-term current use of anticoagulant 320226015 Z79.01 denies bleeding or bruising Mixed hyperlipidemia 267 182861 E78.2 Patient advised to exercise, eat a prudent diet and lose weight as appropriat e. Screening for malignant neoplasm of prostate 438485525 Z12.5 Dysuria 35281012 R30.0 Check urinalysis .recurrent UTI Seasonal allergy 0550933 04 J30.2 Patient presents with allergic rhinitis. Supportive care reviewed: raising HOB, avoiding triggers, taking controller medication s, use of saline nasal spray/humi difier, encourage PO fluids, monitor hydration. RTO as scheduled for next WCC; sooner if any new or concerning symptoms arise. Swelling o f bilateral lower limbs 018174952 M79.89 use lasixcompr ession sockseleva tionrecent travel so worse than previous [id number] THOMAS LAL NP [facility] [address] [place] [address] 12/17/2023 10:16:59 12/17/2023 14:54:50 Uncontrolled type 2 diabetes mellitus 057486448 E11.65 take medication s as prescribed awaiting jzxg9ykczp forced diet and lifestyle changesdai ly foot checkyearl y eye examfollow up every 3 months [facility] 273360660 Z00.00 Patient presented to office today for their Medicare Annual Wellness Visit. Education was provided on healthy nutrition, including a diet rich in fruits and vegetables , minimizing simple carbohydra giovani, salt, and saturated fats. Encouraged regular cardiovasc ular exercise such as walking at least 30 minutes daily, 5 times per week. Emphasized preventive health measures and educated pt on fall prevention and community- based lifestyle interventi ons to help reduce health risks and promote healthy living. Essential hypertension 28505552 I10 educated on goal of less than 130/90advi sed low sodium diet, healthy lifestyle including exercise as ablecontin ue current medication regimenER if any symptoms such as chest pain, shortness of breath Anemia 522823681 D64.9 awaiting lab workasympt omatic Mixed hyperlipidemia 267 529000 E78.2 Patient advised to exercise, eat a prudent diet and lose weight as appropriat e.recheck lipid panel today Neuropathy [id number] G62 .9 controlled continue medication as prescribed vicente reviewed Peripheral vascular disease 422618891 I73.9 continue with cardiology who is managingco ntinue statin therapy, weight management , control of chronic disease Paroxysmal atrial fibrillation 101338405 I48.0 rate controlled continue metoprolol and anticoagul ation with eliquis Hepatitis C screening 41 0240847 Z11.59 once lifetime screening Vaccine de clined by patient [id number] 02 Z28.20 declines PCV, TDAP, shingles [id number] Cameron Quinn MD [facility] [address] [place] [address] 12/25/2023 14:05:21 12/26/2023 08:16:25 Cough 78479515 R05.1 stay well hydratedre stmedicati ons as prescribed symptomati c management ER if any urgent signs or symptoms arise COVID-19 220751648 U07.1 discussed risk versus benefit of Pikes lipid therapy but due to age and multiple comorbidit ies patient high risk, discussed potential interactio n with his Eliquis based on NIH COVID interactio n guidelines and corina guideline; monitor for bleeding bruisingst op statin therapy for 10 days and restartsta y well hydratedre stmedicati ons as prescribed symptomati c management quarantine guidelines based on current [facility]/ [facility] guidelines ER if any urgent signs or symptoms arise [id number] TAFFANY AMBURGEY, [employer] [facility] [address] [place] [address] 03/23/2024 10:15:46 03/23/2024 11:09:55 Uncontrolled type 2 diabetes mellitus 393327412 E11.65 take medication s as prescribed awaiting [id number] forced diet and lifestyle changesdai ly foot checkyearl y eye examfollow up every 3 months Essential hypertension 04978474 I10 educated on goal of less than 130/90advi sed low sodium diet, healthy lifestyle including exercise as ablecontin ue current medication regimen; hasnt taken medication todayER if any symptoms such as chest pain, shortness of breath Long-term current use of anticoagulant 673153075 Z79.01 denies bleeding or bruising Mixed hyperlipidemia 267 788324 E78.2 Patient advised to exercise, eat a prudent diet and lose weight as appropriat e. Dysuria 16136533 R30.0 Check urinalysis .recurrent UTI Seasonal allergy 5496269 04 J30.2 controlled refill provided Swelling o f bilateral lower limbs 330824678 M79.89 controlled , lasix, compressio n socks, elevation education Neuropathy 284315427 G62 .9 controlled continue medication as prescribed vicente reviewed Administra tion of influenza vaccine 54915031 Z23 [id number] THOMAS LAL NP [facility] [address] [place] [address] 07/10/2024 11:29:11 07/10/2024 12:28:57 Uncontrolled type 2 diabetes mellitus 837307617 E11.65 take medication s as prescribed awaiting [id number] forced diet and lifestyle changesdai ly foot checkyearl y eye examfollow up every 3 months Essential hypertension 59233380 I10 educated on goal of less than 130/90advi sed low sodium diet, healthy lifestyle including exercise as ablecontin ue current medication regimenER if any symptoms such as chest pain, shortness of breath Long-term current use of anticoagulant 896340290 Z79.01 denies bleeding or bruising Swelling o f bilateral lower limbs 433628985 M79.89 controlled , lasix, compressio n socks, elevation education Neuropathy 427764759 G62 .9 controlled continue medication as prescribed vicente reviewed Anemia 185034984 D64.9 awaiting lab workasympt omatic Dysuria 47090818 R30.0 Check urinalysis .recurrent UTI [id number] THOMAS LAL NP [address] [place] [address] 08/18/2024 11:06:22 08/19/2024 07:51:56 Dysuria 32034234 R30.0 urine sent for culture and office will call after culture received. Take all medicines prescribed for you for the allotted time period. Push fluids especially water. If no better in 48-72 hours or if you develop abdominal or back pain, with fever chills nausea or vomiting come back or go to the emergency room immediatel yDiscussed that since UA in office is negative I would like for him to try to wait to receive the culture back before starting his antibiotic s to prevent overuse of antibiotic s but I will go ahead and send Macrobid so that if symptoms get worse he can start [id number] THOMAS LAL NP [address] [place] [address] 10/08/2024 11:13:24 10/08/2024 11:55:58 Uncontrolled type 2 diabetes mellitus 366723137 E11.65 take medication s as prescribed awaiting hgba1c Previous hemoglobin A1c was 6.7 in June, we will send his insulin to local pharmacy to see if they can get for himreinfor natalie diet and lifestyle changesdai ly foot checkyearl y eye examfollow up every 3 months Essential hypertension 26261468 I10 educated on goal of less than 130/90advi sed low sodium diet, healthy lifestyle including exercise as ablecontin ue current medication regimenER if any symptoms such as chest pain, shortness of breath Long-term current use of anticoagulant 879155455 Z79.01 denies bleeding or bruising Swelling o f bilateral lower limbs 034677374 M79.89 controlled , lasix, compressio n socks, elevation education Neuropathy 882011419 G62 .9 controlled continue medication as prescribed vicente reviewed Dysuria 29633583 R30.0 recurrent UTIs, check urine today Seasonal allergy 5772986 04 J30.2 controlled refill provided Health Concerns Section Related Observation LastModified by Organization Detai ls LastModified Time None Recorded Concern Status LastModified by Organization Details LastModified Time None Recorded Advance Directives Directive N: Payers Insurance Date Sequence Insurance Name Policy Number Policy Thomas Covered Member ID Thomas Member ID Guarantor Name 11/09/2024 [place] [employer] - [facility] Danish Liao [id number] Danish Liao 10/06/2024 [place] A - [facility] (MEDICARE) Danish Liao [id number] Danish Liao 11/09/2024 2 [employer] - [email or web address] - PLAN F (MEDICARE SUPPLEMENT) Danish Liao [id number] Danish Liao 11/09/2024 1 [place] Danish Liao [id number] 6 Danish Liao 11/09/2024 [place] - [facility] (MEDICARE) Danish Liao [id number] 6 Danish Liao Notes Date Note Type Note Provider Name and Address Organization Details Recorded Time 12/25/2023 text/html 73-year-old male who presents with congestion, coughing, drainage and intermittent wheezing that started on Saturday. He is coughing up small amounts of sputum. Denies any fever, chills, nausea, vomiting, abdominal pain, shortness of breath, chest pain. Denies any known exposure to illness. Did use nebulizer machine at home which did help him cough up mucus THOMAS LAL NP [address] [place] [address], [address], [place] - [facility] & [place] 12/25/2023 14:44:58 03/23/2024 text/html 74-year-old male who presents for chronic care follow-up. Reports his insurance will no longer cover Basaglar in the new , will want glargine. does have enough to get him to the new . Just picked up a refill. He was seen at the beginning of February at urgent care given antibiotics for urinary tract infection had 2 different rounds of antibiotics but does not feel like improved. He will have his cardiology follow-up on Saturday. He denies any chest pain, shortness of breath, swelling. Neuropathy overall controlled. Denies any bleeding or bruising. Glucose running around 100. Denies any wounds or ulcers on his feet. THOMAS LAL NP [address] [place], [address], [facility] & [place] 03/24/2024 09:58:22 07/10/2024 text/html 74-year-old male who presents for 3 month follow-up on chronic care. Denies any episodes of hyper or hypoglycemia. Denies any wounds or ulcers on his feet. Does have a recurrent UTI, no current symptoms today but would like to have urine recheck today. Vital signs are stable. Reviewed medications. THOMAS LAL NP [address] [place], [address], [facility] & [place] 07/10/2024 13:01:49 08/18/2024 text/html 74-year-old male who presents with urinary burning and frequency that started approximately 3 days ago. He previously took preventative for UTIs but no longer takes, did not help. Denies any fever, chills, abdominal pain. Reports normal bowel habits. THOMAS LAL NP [address] [place], [address], [facility] & [place] 08/18/2024 11:42:34 10/08/2024 text/html 74-year-old male who presents for [...] to bear weight. THOMAS LAL NP [address] [facility], [place], [address], [facility] & [place] 10/08/2024 11:54:55
--- OUTSIDE RECORDS SUMMARY | 2024-11-28 12:05 | XMS_ITS | Clinical Summary ---
Author Organization [facility] Address [address] [place] [address] Care Team Providers Care Green Chain Puller Name Role Phone Nia Mccord APRN Primary Care Provi manda Allergies No known active allergies Medications aspirin 81 MG EC tablet Daily. Active Insulin Glargine (BASAGLAR KWIKPEN) 100 UNIT/ML injection pen 25 Units 2 (Two) Times a Day. Active furosemide (LASIX) 20 MG tablet As needed Active VITAMIN D PO Take by mouth. Ac tive Ascorbic Acid (Vitamin C ER) 500 MG tablet controlled-relea se Take 500 mg by mouth Daily. Active glipizide (GLUCOTROL XL) 10 MG 24 hr tablet Take 1 tablet by mouth Daily. 3 Active montelukast (SINGULAIR) 10 MG tablet Take 1 tablet by mouth. 3 Active omeprazole (priLOSEC) 20 MG capsule Daily. Active gabapentin (NEURONTIN) 300 MG capsule Take 1 capsule by mouth Daily. Active diphenhydrAMINE (BENADRYL) 25 mg capsule 2 capsules. Active B-D UF III MINI PEN NEEDLES 31G X 5 MM [facility] 3 Active fluticasone (FLONASE) 50 MCG/ACT nasal spray Administer 1 spray into the nostril(s) as directed by provider Daily As Needed. 4 Active Insulin Glargine (BASAGLAR KWIKPEN) 100 UNIT/ML injection pen Inject under the skin into the appropriate area as directed Daily. 4 Active metoprolol succinate XL (TOPROL-XL) 25 MG 24 hr tabletIndication s:Paroxysmal atrial fibrillation Take 1 tablet by mouth Daily. 90 tablet 3 4 Active metFORMIN (GLUCOPHAGE) 500 MG tablet Take 1 tablet by mouth 2 (Two) Times a Day With Meals. 4 Active losartan (COZAAR) 50 MG tablet Take 1 tablet by mouth Daily. Active atorvastatin (LIPITOR) 20 MG tablet Take 1 tablet by mouth Daily. Active apixaban (Eliquis) 5 MG tablet tabletIndication s:Paroxysmal atrial fibrillation Take 1 tablet by mouth 2 (Two) Times a Day. 84 tablet 5 Active Active Problems Problem Noted Date Diagnosed Date Precordial chest pain 03/30/2024 Assessment & Plan (04/20/2024 10:45 AM EST): He completed a nuclear stress test on 04/16/2024 that revealed no evidence of ischemic coronary artery disease, low risk study. He has not had any further episodes of chest pain. Assessment & Plan (03/30/2024 12:48 PM EST): He reports occasional episodes of mid-sternal chest pain that sometimes radiates across his chest. He also reports shortness of breath on exertion. Last stress test was in 2020.. -Nuclear stress test to rule out ischemia. Dr. Thomas recommends nuclear stress test versus stress echo due to right bundle branch block on EKG. Hypertension, essential 09/28/2022 Assessment & Plan (10/19/2024 12:11 PM EDT): Hypertension is stable and controlled Continue current treatment regimen. Dietary sodium restriction. Weight loss. Regular aerobic exercise. Blood pressure will be reassessed in 6 months Assessment & Plan (04/20/2024 10:46 AM EST): Hypertension is stable and controlled Continue current treatment regimen. Dietary sodium restriction. Weight loss. Regular aerobic exercise. Blood pressure will be reassessed in 6 months Assessment & Plan (09/30/2023 12:41 PM EDT): Hypertension is stable and controlled Continue current treatment regimen. Dietary sodium restriction. Weight loss. Regular aerobic exercise. Blood pressure will be reassessed in 6 months. Encounter for pre-operative cardiovascular clear ance 06/28/2022 Assessment & Plan (06/28/2022 5:28 PM EST): He has an unscheduled epidural injection per orthopedics. He is on Eliquis and aspirin. Risk and benefits discussed with patient today and he verbalized understanding of minimizing time off Eliquis and aspirin. He verbalized understanding. Plan he may proceed. See cardiac clearance form. Paroxysmal atrial fibrillation 06/28/2022 Assessment & Plan (10/19/2024 12:12 PM EDT): Stable and rate controlled. Only occasional brief [...] try to provide samples until that time. Assessment & Plan (04/20/2024 10:45 AM EST): Stable and rate controlled. Only occasional brief episodes that occur with exertion. No sustained events that he is aware of. - Continue metoprolol and Eliquis at current doses. Assessment & Plan (03/30/2024 12:45 PM EST): Stable and rate controlled. Only occasional brief episodes that occur with exertion. No sustained events that he is aware of. - Continue metoprolol and Eliquis at current doses. Assessment & Plan (09/30/2023 12:41 PM EDT): Stable and rate controlled. Only occasional brief episodes that occur with exertion. No sustained events that he is aware of. - Continue metoprolol and Eliquis at current doses. Assessment & Plan (04/01/2023 1:04 PM EST): Stable and rate controlled. Only occasional brief episodes that occur with exertion. No sustained events that he is aware of. - Continue metoprolol and Eliquis at current doses. Assessment & Plan (06/28/2022 5:29 PM EST): He is on Eliquis for anticoagulation and he is on metoprolol for rate control. Coronary artery disease invo lving ute mountain coronary artery of ute mountain heart without angina pectoris 06/28/2022 Assessment & Plan (10/19/2024 12:11 PM EDT): Patient reports a previous history of coronary angioplasty in 1996 with no stents. He is currently asymptomatic. Lipid panel from 03/23/2024 reviewed. Total cholesterol 158, triglycerides 104, HDL 45 and LDL 90. - Continue aspirin, atorvastatin, metoprolol and losartan at current doses Assessment & Plan (04/20/2024 10:46 AM EST): Patient reports a previous history of coronary angioplasty in 1996 with no stents. He reports occasional episodes of chest pain. - Continue aspirin, atorvastatin, metoprolol and losartan at current doses Assessment & Plan (03/30/2024 12:45 PM EST): Patient reports a previous history of coronary angioplasty in 1996 with no stents. He reports occasional episodes of chest pain. -Check stress test to rule out ischemia - Continue aspirin, atorvastatin, metoprolol and losartan at current doses. Assessment & Plan (09/30/2023 12:40 PM EDT): Patient reports a previous history of coronary angioplasty in 1996 with no stents. He denies chest pain or worsening shortness of breath. - Continue aspirin, atorvastatin, metoprolol and losartan at current doses. Assessment & Plan (04/01/2023 1:05 PM EST): Patient reports a previous history of coronary angioplasty in 1996 with no stents. He denies chest pain or worsening shortness of breath. - Continue aspirin, atorvastatin, metoprolol and losartan at current doses. Assessment & Plan (06/28/2022 5:30 PM EST): He denies any chest pain shortness of breath or edema. He had a heart cath years ago and was told early coronary artery disease. His most recent stress testing is low risk. We will continue medical management. MARK (obstructive sleep apnea) 06/28/2022 Assessment & Plan (10/19/2024 12:13 PM EDT): He is doing very well on BiPAP therapy with excellent control and compliance. Download reviewed and interpreted today. Compliance is 100%, average use per night is 9 hours and 14 minutes. AHI 0.2. -Cannot new PAP therapy at current settings - Continue to wear chinstrap to help prevent leaking - Do not drive if sleepy Assessment & Plan (04/20/2024 10:44 AM EST): Patient is doing very well on PAP therapy with good control and compliance. Mask leak noted on download He has not been using his chinstrap and his mask is old. He denies excessive daytime sleepiness or fatigue. -Continue PAP therapy at current settings -Wear chinstrap to help prevent leaking -Do not drive if sleepy Assessment & Plan (03/30/2024 12:47 PM EST): Patient is doing very well on PAP therapy with good control and compliance. Download reviewed and interpreted today. Compliance is 100%, average use per night is 9 hours and 20 minutes. AHI 0.3. mask leak noted on download He has not been using his chinstrap and his mask is old. He denies excessive daytime sleepiness or fatigue. -Continue PAP therapy at current settings -Wear chinstrap to help prevent leaking -Do not drive if sleepy Assessment & Plan (09/30/2023 12:40 PM EDT): Patient is doing very well on PAP therapy with good control and compliance. Download reviewed and interpreted today. Compliance is 100%, average use per night is 9 hours and 40 minutes. AHI 0.1. Significant mask leak noted on download He has not been using his chinstrap and his mask is old. - Encourage patient to get a new mask and wear chinstrap to prevent leaking. - Continue PAP therapy at current settings. Assessment & Plan (04/01/2023 1:06 PM EST): He is doing very well on PAP therapy with good control and compliance. Compliance on download is 100%, AHI 0.2. Significant mask leak noted on download He has not been using his chinstrap and his mask is old. - Encourage patient to get a new mask and wear chinstrap to prevent leaking. - Continue PAP therapy at current settings. Assessment & Plan (06/28/2022 5:31 PM EST): He has a known history of obstructive sleep apnea. He is receiving benefit from PAP therapy and we plan to continue PAP therapy. Encounters Date Type Department Care Team Description 11/27/2024 Telephone [facility] [place] [phone] Alicia Thomas MD REBECCA-RETURNING CALL 10/20/2024 Patient rounding ([facility] [place] [facility] [place] [address] Bonny Vasquez APRN 10/19/2024 10:30 AM EDT Office Visit [facility] [place] [address] Bonny Vasquez APRN Coronary artery disease involving ute mountain coronary artery of ute mountain heart without angina pectoris (Primary Dx); Paroxysmal atrial fibrillation; MARK (obstructive sleep apnea); Hypertension, essential 10/19/2024 Travel 09/28/2024 Telephone [facility] [place] [phone] Bonny Vasquez APRN [facility] - MISSED CALL 09/28/2024 Telephone [facility] [address] [place] [phone] Bonny Vasquez APRN 08/31/2024 Telephone [facility] [place] [phone] Alicia Thomas MD from Last 3 Months Family History Medical History Relation Name Comments Kidney failure Mother Other Sister LIVER FAILURE Relation Name Status Comments Brother 2 1 RADHA ESCOBAR Father (Age 93) Mother (Age 68) Sister (Age 72) Social History Tobacco Use Types Packs/Day Years Used Date Smoking Tobacco: Never Passive Smoke Exposure: Never Smokeless Tobacco: Never Tobacco Cessation:Counseling Given: Not Answered Alcohol Use Standard Drinks/Week Comments Never 0 [...] Mass Index 40.29 10/19/2024 10:17 AM EDT Plan of Treatment Upcoming Encounters Date Type Department Care Team (Late st Contact Info) Description 04/19/2025 10:45 AM EST Office Visit [facility] [address] [place] [phone] Alicia Thomas MD [address] [place] [address] Health Maintenance Due Date Last Done Comments DIABETIC EYE EXAM 1961 DIABETIC FOOT EXAM 1961 URINE MICROALBUMIN-CREATININ E RATIO (uACR) 1961 TDAP/TD VACCINES (1 - Tdap) 1970 COLOGUARD 01/29/1996 COLON CANCER SCREENING 5 YEA R SIGMOIDOSCOPY 01/29/1996 CT COLONOGRAPHY 01/29/1996 FECAL OCCULT BLOOD TEST 01/29/1996 FIT Testing (1 year) 01/29/1996 ZOSTER VACCINE (1 of 2) 2001 Pneumococcal Vaccine 50+ (2 of 2 - PPSV23) 05/05/2020 03/10/2020 HEMOGLOBIN A1C 06/19/2022 HEPATITIS C SCREENING 06/19/2022 COVID-19 Vaccine (2023-2 5 season) 2024 08/12/2020 ANNUAL WELLNESS VISIT 12/16/2024 12/17/2023 INFLUENZA VACCINE 02/10/2025 03/23/2024, , 02/27/2022, Additional history exists COLONOSCOPY 02/07/2033 02/07/2023, 11/08/2022 COLORECTAL CANCER SCREENING 02/07/2033 Procedures Procedure Name Priority Date/Time Associated Diagnosis Comments SCANNED - PULMONARY RESULTS 10/19/2024 SCANNED - LABS 10/10/2024 from Last 3 Months Results * Pulmonary Results Scan (10/19/2024) Bonny Vasquez APRN PFT ORDERABLES Final Re sult * LABS SCANNED (10/10/2024) Bonny Vasquez APRN LAB BLOOD ORDERABLES Fin al Result from Last 3 Months Insurance MEDICARE A & B Care Teams Green Chain Puller Relationship Specialty Start Date End Date Nia Mccord APRN [address] [facility] [place] [id number] PCP - General Nurse Practitioner 06/28/22
--- OUTSIDE RECORDS SUMMARY | 2024-11-28 12:05 | XMS_ITS | Continuity of Care Document ---
Author Organization [place] - [facility] Address [address] [place] [address] Care Team Providers Care Dramatic Coach Name Role Phone ELEByron THOMAS Primary Care Provider [phone] Assessment Encounter Date Assessment Date Assessment LastModified by Organization Details LastModified Time 10/22/2024 10/22/2024 - 74-year-old male with benign prostatic hyperplasia and urethral stricture disease, here for follow-up. - Uses 14-inch Coude catheter occasionally for urethral stricture. - Nocturia once nightly, denies dysuria or hematuria. - Tadalafil 20 mg for erectile dysfunction, soreness from catheter use, avoids daily catheterization . Benign Prostatic Hyperplasia: - Monitor symptoms, manage with catheterization . Urethral Stricture Disease: - Use 14-inch Coude catheter as needed, avoid daily use. Erectile Dysfunction: - Continue tadalafil 20 mg as needed. [email or web address] Not available 10/25/2024 10:44:25 Plan of Treatment Reminders Order Date Submit Date Provider Last Modified By Organization Details Last Modified Time Details Appointments RECHECK 2025 01:00P Yolanda CAVAZOS MD Not available Not available Not available Lab urinalysi s panel, auto 2024 025 [email or web address] [facility] [place] [facility], [address] [place] [address] [address], [place], [address], 10/25/2024 10:44:26 Referral None recorded. Procedures None recorded. Surgeries None recorded. Imaging None recorded. Medication Orders tadalafil 20 mg tablet 2024 025 [facility] [id number], [address], [place], [address], 10/22/2024 15:47:57 Patient TargetsNo targets recorded. Patient Instructions Encounter Date Encounter Id Patient Instructions Last Modified By Organization Details Last Modified Time 10/22/2024 [id number] learning about healthy weight [email or web address] Not available 10/25/2024 10:44:25 - Continue using [...] Abnormal Flag Note LastModifiedBy Organization Detail LastModifiedTime 10/23/19 25 10/22/2024 urina lysis panel , auto Unknown Analyte Clean Catch Not Available [facility] [address], [place], [address], 10/22/2024 18:11:04 10/23/19 25 10/22/2024 urina lysis panel , auto Unknown Analyte Yellow Not Available [facility] With [address], [place], [address], 10/22/2024 18:11:04 10/23/19 25 10/22/2024 urina lysis panel , auto Unknown Analyte Clear Not Available [facility] [address], [place], [address], 10/22/2024 18:11:04 10/23/19 25 10/22/2024 urina lysis panel , auto Unknown Analyte 1.015 Not Available [facility] With [address], [place], [address], 10/22/2024 18:11:04 10/23/19 25 10/22/2024 urina lysis panel , auto Unknown Analyte 1.003 - 1.030 Not Available [facility] With [address], [place], [address], 10/22/2024 18:11:04 10/23/19 25 10/22/2024 urina lysis panel , auto Unknown Analyte 5.0 Not Available [facility] With [address] [place], [address], 10/22/2024 18:11:04 10/23/19 25 10/22/2024 urina lysis panel , auto Unknown Analyte 5.0 - 8.0 Not Available [facility] With [address] [place], [address], 10/22/2024 18:11:04 10/23/19 25 10/22/2024 urina lysis panel , auto Unknown Analyte Negati ve Not Available [facility] With [address] [place], [address], 10/22/2024 18:11:04 10/23/19 25 10/22/2024 urina lysis panel , auto Unknown Analyte Negati ve Not Available [facility] With [address] [place], [address], 10/22/2024 18:11:04 10/23/19 25 10/22/2024 urina lysis panel , auto Unknown Analyte Negati ve Not Available [facility] With [address] [place], [address], 10/22/2024 18:11:04 10/23/19 25 10/22/2024 urina lysis panel , auto Unknown Analyte Negati ve Not Available [facility] With [address] [place], [address], 10/22/2024 18:11:04 10/23/19 25 10/22/2024 urina lysis panel , auto Unknown Analyte Negati ve Not Available [facility] [address], [place], [address], 10/22/2024 18:11:04 10/23/19 25 10/22/2024 urina lysis panel , auto Unknown Analyte Negati ve Not Available [facility] With [address] [place], [address], 10/22/2024 18:11:04 10/23/19 25 10/22/2024 urina lysis panel , auto Unknown Analyte 100 mg/dL Not Available [facility] With [address] [place], [address], 10/22/2024 18:11:04 10/23/19 25 10/22/2024 urina lysis panel , auto Unknown Analyte Normal Not Available [facility] [address] [place], [address], 10/22/2024 18:11:04 10/23/19 25 10/22/2024 urina lysis panel , auto Unknown Analyte Negati ve Not Available [facility] With [address] [place], [address], 10/22/2024 18:11:04 10/23/19 25 10/22/2024 urina lysis panel , auto Unknown Analyte Negati ve Not Available [facility] [address] [place], [address], 10/22/2024 18:11:04 10/23/19 25 10/22/2024 urina lysis panel , auto Unknown Analyte 4 mg/dL Not Available [facility] With [address], [place], [address], 10/22/2024 18:11:04 10/23/19 25 10/22/2024 urina lysis panel , auto Unknown Analyte Normal Not Available [facility] With [address] [place], [address], 10/22/2024 18:11:04 10/23/19 25 10/22/2024 urina lysis panel , auto Unknown Analyte Negati ve Not Available [facility] With [address] [place], [address], 10/22/2024 18:11:04 10/23/19 25 10/22/2024 urina lysis panel , auto Unknown Analyte Negati ve Not Available [facility] With [address] [place], [address], 10/22/2024 18:11:04 10/23/19 25 10/22/2024 urina lysis panel , auto Unknown Analyte Negati ve Not Available [facility] With [address] [place], [address], 10/22/2024 18:11:04 10/23/19 25 10/22/2024 urina lysis panel , auto Unknown Analyte Negati ve Not Available [facility] With [address] [place], [address], 10/22/2024 18:11:04 Result Notes None recorded. Procedures Surgical History Date Name Laterality Status Provider Name and Address Organization Details Recorded Time [facility] Rem[facility]/12/2018 15:45:31 Imaging Results None recorded. Procedure [...] Updated DateTime 10/22/2024 172.72 cm 41.1 kg/m2 032640.94 g Terri Jose Raul [facility] 10/22/2024 18:10:32 Social History Question Answer Notes LastModified by Organizat ion Details LastModified Time Tobacco Smoking Status Never Smoker Not Available [facility]/15/2020 03:47:32 How Much Tobacco Do You Chew? None Information not available 11/03/2020 Marital Status win Informatio n not available 06/12/2018 What Was The Date Of Your Most Recent Tobacco Screening? 10/22/2024 Information not available 10/22/2024 Sex: Unknown Functional Status Question Answer Note LastModified by Organization D etails LastModified Time What is your level of alcohol consumption? None [id number] Information not available 03/15/2020 Mental Status None recorded. Family History Relationship Description Onset Age of this Age Resolved Age Notes LastModified by Organization Details LastModified Time Unspecified Relation Diabetes mellitus win Not available 2018 15:45:00 Medical History Condition Response Allergies/Hayfever Y False Teeth Y Anesthesia Complications Y Heart Attack ([place]) Y Ulcers Y Diabetes Y Sleep Apnea Y Past Encounters Encounter ID Performer Location Encounter Start Date Encounter Closed Date Diagnosis/Indication Diagnosis SNOMED-CT Code Diagnosis ICD10 Code Diagnosis Note [id number] CADEN CAVAZOS MD [facility] [address] [place] [address] 10/22/2024 15:46:25 10/22/2024 18:59:04 Primary erectile dysfunction 411904277 N52.9 Benign pro static hyperplasia with outflow obstruction 128549693 N40.1 N13.8 Male ureth ral stricture 8795189274 0443412 N35.919 Health Concerns Section Related Observation LastModified by Organization Detai ls LastModified Time None Recorded Concern Status LastModified by Organization Details LastModified Time None Recorded Payers Encounter Date Sequence Insurance Name Policy Number Policy Thomas Covered Member ID Thomas Member ID Guarantor Name 10/22/2024 1 [place] Danish Liao [id number] Danish Liao 10/22/2024 2 SE[employer] (MEDICARE SUPPLEMENT) Danish Liao [id number] Danish Liao Notes Date Note Type Note Provider Name and Address Organization Details Recorded Time 10/22/2024 text/html The patient is a 74-year-old [...] avoidance of daily catheterization. CADEN CAVAZOS MD [address] [place], [address], [facility] 10/25/2024 10:44:47
--- OUTSIDE RECORDS SUMMARY | 2024-11-28 12:05 | XMS_ITS | Encounter Summary ---
Author Organization [facility] Address [address] [place] [id number] Care Team Providers Care Safety And Health Consultant Name Role Phone Nia Mccord [employer]EMAN Primary Care Provi manda Encounter Details Date Type Department Care Team (Latest Contact Info) Description 10/19/2024 Travel Social History Tobacco Use Types Packs/Day Years [...] on file documented as of this encounter Plan of Treatment Upcoming Encounters Date Type Department Care Team (Late st Contact Info) Description 04/19/2025 10:45 AM EST Office Visit [facility] [address] [place] [address] Alicia Thomas MD [address] [place] [address] documented as of this encounter Visit Diagnoses Not on filedocumented in this encounter Care Teams Safety And Health Consultant Relationship Specialty Start Date End Date Nia Mccord APRN [address] [place] [address] PCP - General Nurse Practitioner 06/28/22 documented as of this encounter
--- OUTSIDE RECORDS SUMMARY | 2024-11-28 12:05 | XMS_ITS | Encounter Summary ---
[facility] Address [address] [place] [address] Care Team Providers Care General Counselor Name Role Phone Nia Mccord Kamara PRICK STITCHER Primary Care Provi manda Encounter Details Date Type Department Care Team (Late st Contact Info) Description 10/20/2024 Patient rounding ([facility]) [facility] [address] [place] [address] Bonny Vasquez APRN [address] [place] [address] Social History Tobacco Use Types Packs/Day Years [...] Visit [facility] [address] [place] [address] Alicia Thomas MD [address] [place] [address] documented as of this encounter Visit Diagnoses Not on filedocumented in this encounter Care Teams General Counselor Relationship Specialty Start Date End Date Nia Mccord APRN [address] [place], [place] [address] PCP - General Nurse Practitioner 06/28/22 documented as of this encounter
--- NOTE | 2024-11-28 12:09 | HMH.EDGENADL ---
Discharge Plan Disposition Patient Disposition: Home, Self-Care Condition: Good Prescriptions Prescriptions: No Action (DME) lancets [Accu-Chek Softclix Lancets] Misc See Rx Instructions .ROUTE .MEDSUPPLY Qty: 50 Rx Instructions: As directed atorvastatin 20 mg tablet 20 mg PO HS glipizide 10 mg tablet extended release 24hr 10 mg PO DAILY gabapentin 300 mg capsule 300 mg PO DAILY omeprazole 20 mg capsule,delayed release(DR/EC) 20 mg PO DAILY montelukast 10 mg tablet 10 mg PO DAILY metoprolol succinate 25 mg tablet extended release 24 hr 25 mg PO DAILY fluticasone propionate 50 mcg/actuation spray,suspension 2 spray INTRANASAL DAILY amoxicillin 500 mg capsule 500 mg PO TID 7 Days Qty: 21 0RF Eliquis 5 mg Tablet 5 mg PO BID Referrals Follow up/Referrals: Nia Mccord APRN [Primary Care Provider, Medical] - See instructions Activity Restrictions/Add. Instructions Additional Instructions/Restrictions: Please return to the emergency department with any worsening signs or symptoms, please follow-up with your family doctor in the upcoming days. Please continue take all your medication as prescribed. Clinical Impressions Clinical Impression: Fall, Abrasion Instructions Patient Instructions: DI for Abrasion Print Language Print Language: Greek Discharge ED Provider: Kevan Avalos General Adult HPI <SUDHAKAR Salcedo - Last Filed: 11/28/24 15:02> General Chief complaint: Fall Stated complaint: AO 11/27/24 19:00 Scratches on Face; Both arm Pain Time Seen by Provider: 11/28/24 12:07 Mode of Arrival: Ambulatory Source of Information: Patient Description of Symptoms (Recalled from ER Triage Doc. by RN): PT presents to the ED for evaluation of a fall on 11/27/2024 at 1900. PT stated he was in his garden and tripped over a tomato plant and fell. Pt stated he hit hard , stated he hit his head on a 2x4 piece of wood. Pt has scratched to the bridge of his nose and right forehead, swollen L pinky, ring and middle finger. PT stated his L fingers are numb and tingling. Denies LOC. Denies a long period down. PT is on blood thinners. History of Present Illness HPI narrative: 74-year-old male presents to the emergency department accompanied by his , for a fall that occurred on 11/27/2024 at approximately 1900, patient states that he was in his garden , working on his tomato plant , when he states that his foot got caught , and the tomato bin . Which caused him to fall, landing on his face, does admit to striking the head, denies any LOC, [place] any presyncopal or syncopal event, denies any fever chills chest pain shortness of breath nausea vomiting constipation diarrhea no urinary symptomatology, no abdominal pain, patient endorses abrasions to the face, most notable in the right frontal region, and nasal bridge, patient is on anticoagulation therapy with Eliquis due to past medical history consisting of A-fib, patient was close of bilateral hand/wrist pain, and some what sounds like radicular pain starting in the neck, does admit to some neck pain, does have remote history of what sounds like cervical spine fusion, endorses numbness and tingling bilateral hands. Patient is a non-smoker denies any alcohol or drug use, no other trauma or injury per history, no mid thoracic pain, no lumbar spine pain, no urinary bladder or bowel dysfunction, patient has no upper or lower extremity weakness, no other lower extremity pain/injury. Other past medical history is consistent with T2DM, hyperlipidemia, diabetic polyneuropathy, GERD. Initial triage vitals notable for tachycardia, otherwise unremarkable, patient did take some Tylenol around 9 AM this morning which did relieve some of his pain Onset (ago): hour(s) Related Data Home Medications ?Medication ?Instructions ?Recorded ?Confirmed lancets (Accu-Chek Softclix #[id number] ea 09/16/19 11/28/24 Lancets) atorvastatin 20 mg tablet 20 mg PO HS 05/13/23 11/28/24 fluticasone propionate 50 2 spray intranasal DAILY 05/13/23 11/28/24 mcg/actuation nasal spray,suspension gabapentin 300 mg capsule 300 mg PO DAILY 05/13/23 11/28/24 glipizide 10 mg tablet, extended 10 mg PO DAILY 05/13/23 11/28/24 release 24 hr metoprolol succinate 25 mg 25 mg PO DAILY 05/13/23 11/28/24 tablet,extended release 24 hr montelukast 10 mg tablet 10 mg PO DAILY 05/13/23 11/28/24 omeprazole 20 mg capsule,delayed 20 mg PO DAILY 05/13/23 11/28/24 release apixaban 5 mg tablet (Eliquis) 5 mg PO BID 11/28/24 11/28/24 Previous Rx's ?Medication ?Instructions ?Recorded amoxicillin 500 mg capsule 500 mg PO TID 7 days #21 caps 05/13/23 Allergies Allergy/AdvReac Type Severity Reaction Status Date / Time No Known Allergies Allergy Verified 08/31/20 12:53 [facility] <SUDHAKAR Salcedo - Last Filed: 11/28/24 15:02> [facility] Disclaimer: The information contained in this section may have been updated after the patient was seen, as this information can be updated by other users. Medical History (Updated 11/28/24 @ 15:02 by SUDHAKAR Salcedo) Prostate disorder Urinary tract infection Kidney stone Diabetes mellitus, type 2 History of heart attack Atrial fibrillation Hyperlipidemia Hypertension Surgical History (Updated 05/13/23 @ 13:57 by Norma Mohan RN) History of cardiac cath Social History Smoking Status: Never smoker alcohol intake: never current occupational status: other Travel in the last 8 weeks?: None housing: house Have you lived/traveled outside [place] in past 30 days?: No Contact w/someone who lives/traveled outside US past 30 days?: No Exposure to someone with infectious disease in past 14 days?: No Do you have a fever (greater than 100.4 F or 38 C)?: No Have you tested positive for COVID-19?: No Exposed to someone with COVID-19 in past 14 days?: No Do you have a sore throat?: No Do you have a cough?: No Do you have any weakness?: No Do you have any diarrhea?: No Are you experiencing any unusual bleeding?: No Do you have any muscle aches/pain?: No Do you have any abdominal pain?: No Are you experiencing loss of taste or smell?: No Other Medical History Have you received the Flu Vaccine for this season: Yes Have you received the Pneumonia Vaccine: Yes <SUDHAKAR Salcedo - Last Filed: 11/28/24 15:02> ROS Obtained: Yes All systems reviewed & no additional complaints except as documented Physical Exam <SUDHAKAR Salcedo - Last Filed: 11/28/24 15:02> General General appearance: alert and in no apparent distress Comment: Abrasion over the right frontal region of the scalp/face, as well as nasal bridge, no raccoon sign, no Snyder sign, no tenderness over the facial bones Head Head exam: atraumatic and normocephalic Eye Eye exam: Present PERRL and EOMI ENT ENT exam: Present mucous membranes moist Neck Neck exam: Present normal inspection Chest Chest inspection: Present normal inspection and symmetric chest wall rise Respiratory Respiratory exam: Present normal lung sounds bilaterally; Absent respiratory distress Cardiovascular Cardiovascular exam: Present regular rate and normal rhythm Abdominal Exam Abdominal exam: Present soft; Absent tenderness, guarding, rebound or rigidity Extremities Exam Extremities exam: Present normal inspection and other (Mild pain palpation and normal inspection to the bilateral hand/wrist, otherwise neurovascular intact, patient does have what appears to be a trigger finger/prior injury to the left third digit, prior surgery to repair this finger) Back Exam Back exam: Present normal inspection, full ROM, tenderness and paraspinal tenderness Comment: Mild paraspinal tenderness noted to the cervical spine, negative spinal and paraspinal tenderness to the cervical spine thoracic and lumbar spines. Neurological Exam Neurological exam: Present alert, oriented X3 and other (5 out of 5 strength in the bilateral lower and upper extremities, patient moves extremities command, no gross sensation deficit) Psychiatric Psychiatric exam: Present normal affect Skin Skin exam: Present warm and dry Medical Decision Making <SUDHAKAR Salcedo - Last Filed: 11/28/24 15:02> Medical Records Medical records reviewed: Yes I reviewed the patient's medical records. Screening: Per USPSTF and CDC recommendations, given the prevalence of disease in our region, it is our hospital?s policy to screen for HIV and viral Hepatitis for all patients aged 18 and over and those with ongoing risk factors. Carlo Inquiry Pt receiving controlled substance: No Carlo was queried for this patient: No Vital Signs: 11/28/24 11:43 11/28/24 11:45 11/28/24 12:01 Temperature 98.0 F Temperature Source Oral Pulse Rate 68 65 Pulse Rate [Right] 116 H Respiratory Rate 18 Blood Pressure 128/75 127/56 L Blood Pressure [Right Arm] 128/75 Blood Pressure Mean [Right Arm] 92 02 Sat by Pulse Oximetry 97 97 96 Oxygen Delivery Method Room Air 11/28/24 13:30 11/28/24 14:00 11/28/24 14:30 Temperature Temperature Source Pulse Rate 63 64 70 Pulse Rate [Right] Respiratory Rate Blood Pressure 146/76 H 126/67 133/70 Blood Pressure [Right Arm] Blood Pressure Mean [Right Arm] 02 Sat by Pulse Oximetry 98 98 98 Oxygen Delivery Method Room Air Room Air 11/28/24 15:00 11/28/24 15:03 11/28/24 15:11 Temperature 98.6 F Temperature Source Pulse Rate 62 74 61 Pulse Rate [Right] Respiratory Rate 16 Blood Pressure 134/69 129/60 129/60 Blood Pressure [Right Arm] Blood Pressure Mean [Right Arm] 02 Sat by Pulse Oximetry 98 98 Oxygen Delivery Method Room Air Lab Data Lab results reviewed: Yes I reviewed the patient's lab results. Lab Results 11/28/24 13:23: WBC 14.0 H, RBC 4.31 L, Hgb 13.1 L, Hct 40.4 L, MCV 93.7, MCH 30.4, MCHC 32.4, RDW 12.8, Plt Count 183, MPV 12.7 H, Neut % (Auto) 85.3 H, Lymph % (Auto) 10.1, [place] % (Auto) 4.2, Eos % (Auto) 0.0 L, Baso % (Auto) 0.1, Neut # (Auto) 11.9 H, Lymph # (Auto) 1.4, [place] # (Auto) 0.6, Eos # (Auto) 0.0, Baso # (Auto) 0.0, PT 10.9, INR 0.98, Sodium 138, Potassium 4.8, Chloride 104, Carbon Dioxide 23, Anion Gap 15.8 H, BUN 21 H, Creatinine 0.80, Estimated Creat Clear 110, Estimated GFR 95, Est GFR ( Amer) 115, Glucose 266 H, Calcium 9.9, Total Bilirubin 1.7 H, AST 37, ALT 23, Alkaline Phosphatase 52, Total Protein 7.5, Albumin 4.5, Globulin 3.0, Albumin/Globulin Ratio 1.5 11/28/24 13:23 11/28/24 13:23 Orders (Tests/Meds): ORDERS Category Date Time Status CT cervical spine wo con Stat Cat Scan 11/28/24 12:[address] facial bones wo con Stat Cat Scan 11/28/24 12:[address] head/brain wo con Stat Cat Scan 11/28/24 12:21 Completed XR forearm LT 2V Stat Exams 11/28/24 12:22 Completed XR forearm RT 2V Stat Exams 11/28/24 12:22 Completed XR hand LT min 3V Stat Exams 11/28/24 12:22 Completed XR hand RT min 3V Stat Exams 11/28/24 12:22 Completed Complete Blood Count Auto Diff Stat Lab 11/28/24 13:23 Completed Comprehensive Metabolic Panel Stat Lab 11/28/24 13:23 Completed PT INR [Prothrombin Time INR] Stat Lab 11/28/24 13:23 Completed Medical Decision Narrative: 74-year-old male presents emergency department with a mechanical fall, last night, see HPI for full detail past medical history, differential diagnosis include but not limited to acute SDH, traumatic SAH, allergy, C-spine fracture, facial bone fracture, abrasions, traumatic soft tissue injuries, hand fracture, hand sprain, forearm fracture, forearm sprain, cardiac arrhythmia, electrolyte disturbance among others. I discussed patient case with attending physician Dr. Avalos Will obtain basic laboratory studies, coags, x-ray of the forearm on the left, x-ray of the forearm on the right, x-ray of the hands bilaterally, EKG, CT cervical spine, CT facial bones and CT head without contrast be obtained. I reviewed the patient's EKG, at 12:28 PM, NSR at 60 bpm, there is a chronic appearing right bundle branch block, AR interval within normal limits, QT intervals 430/441, there is no STEMI. Mild leukocytosis of 14, anemia is noted with a hemoglobin of 13.1 and hematocrit 40.4, labs within normal limits I reviewed the patient's left hand x-ray along with corresponding radiologic report, no evidence of acute osseous abnormality left hand, fixed flexion of the third distal interphalangeal joint may indicate ligamentous injury. This is known to the patient, patient had prior surgery on this affected digit. I reviewed the patient's forearm x-ray on the left along with corresponding radiologic report, no evidence of acute osseous abnormality of the left forearm. CMP is notable for elevated BUN at 21, which is minimal, mild hyperbilirubin elevation 1.7 otherwise unremarkable CMP Reviewed the patient's right hand x-ray along the corresponding radiologic report, no evidence of acute osseous abnormality the right wrist/hand. I reviewed the patient's x-ray of the forearm on the right along with corresponding radiologic report, no acute abnormality. I reviewed the patient's CT cervical spine without contrast along the corresponding radiologic report, no acute cervical spine fracture. I reviewed the patient CT head without contrast along the corresponding radiologic report, soft tissue edema along the frontal bone to the right of midline no depressed calvarial fracture, no acute intracranial abnormality. Reviewed the patient's CT facial bones without contrast along the corresponding radiologic report, no acute findings. I discussed the results with the patient today with the bedside patient family and agreed with current treatment plan/discharge plan. Patient was given strict ED return precautions, patient follow-up PCP in the upcoming days. Fall precaution given to the patient. Generalized wound precaution given to patient and at the bedside. <Kevan Avalos MD - Last Filed: 11/29/24 06:59> Vital Signs: 11/28/24 11:43 11/28/24 11:45 11/28/24 12:01 Temperature 98.0 F Temperature Source Oral Pulse Rate 68 65 Pulse Rate [Right] 116 H Respiratory Rate 18 Blood Pressure 128/75 127/56 L Blood Pressure [Right Arm] 128/75 Blood Pressure Mean [Right Arm] 92 02 Sat by Pulse Oximetry 97 97 96 Oxygen Delivery Method Room Air 11/28/24 13:30 11/28/24 14:00 11/28/24 14:30 Temperature Temperature Source Pulse Rate 63 64 70 Pulse Rate [Right] Respiratory Rate Blood Pressure 146/76 H 126/67 133/70 Blood Pressure [Right Arm] Blood Pressure Mean [Right Arm] 02 Sat by Pulse Oximetry 98 98 98 Oxygen Delivery Method Room Air Room Air 11/28/24 15:00 11/28/24 15:03 11/28/24 15:11 Temperature 98.6 F Temperature Source Pulse Rate 62 74 61 Pulse Rate [Right] Respiratory Rate 16 Blood Pressure 134/69 129/60 129/60 Blood Pressure [Right Arm] Blood Pressure Mean [Right Arm] 02 Sat by Pulse Oximetry 98 98 Oxygen Delivery Method Room Air Lab Data Lab Results 11/28/24 13:23: WBC 14.0 H, RBC 4.31 L, Hgb 13.1 L, Hct 40.4 L, MCV 93.7, MCH 30.4, MCHC 32.4, RDW 12.8, Plt Count 183, MPV 12.7 H, Neut % (Auto) 85.3 H, Lymph % (Auto) 10.1, [place] % (Auto) 4.2, Eos % (Auto) 0.0 L, Baso % (Auto) 0.1, Neut # (Auto) 11.9 H, Lymph # (Auto) 1.4, [place] # (Auto) 0.6, Eos # (Auto) 0.0, Baso # (Auto) 0.0, PT 10.9, INR 0.98, Sodium 138, Potassium 4.8, Chloride 104, Carbon Dioxide 23, Anion Gap 15.8 H, BUN 21 H, Creatinine 0.80, Estimated Creat Clear 110, Estimated GFR 95, Est GFR ( Amer) 115, Glucose 266 H, Calcium 9.9, Total Bilirubin 1.7 H, AST 37, ALT 23, Alkaline Phosphatase 52, Total Protein 7.5, Albumin 4.5, Globulin 3.0, Albumin/Globulin Ratio 1.5 Orders (Tests/Meds): ORDERS Category Date Time Status CT cervical spine wo con Stat Cat Scan 11/28/24 12:[address] facial bones wo con Stat Cat Scan 11/28/24 12:[address] head/brain wo con Stat Cat Scan 11/28/24 12:21 Completed XR forearm LT 2V Stat Exams 11/28/24 12:22 Completed XR forearm RT 2V Stat Exams 11/28/24 12:22 Completed XR hand LT min 3V Stat Exams 11/28/24 12:22 Completed XR hand RT min 3V Stat Exams 11/28/24 12:22 Completed Complete Blood Count Auto Diff Stat Lab 11/28/24 13:23 Completed Comprehensive Metabolic Panel Stat Lab 11/28/24 13:23 Completed PT INR [Prothrombin Time INR] Stat Lab 11/28/24 13:23 Completed Medical Decision Narrative: 74-year-old male presents emergency department with a mechanical fall, last night, see HPI for full detail past medical history, differential diagnosis include but not limited to acute SDH, traumatic SAH, allergy, C-spine fracture, facial bone fracture, abrasions, traumatic soft tissue injuries, hand fracture, hand sprain, forearm fracture, forearm sprain, cardiac arrhythmia, electrolyte disturbance among others. I discussed patient case with attending physician Dr. Avalos Will obtain basic laboratory studies, coags, x-ray of the forearm on the left, x-ray of the forearm on the right, x-ray of the hands bilaterally, EKG, CT cervical spine, CT facial bones and CT head without contrast be obtained. I reviewed the patient's EKG, at 12:28 PM, NSR at 60 bpm, there is a chronic appearing right bundle branch block, AR interval within normal limits, QT intervals 430/441, there is no STEMI. Mild leukocytosis of 14, anemia is noted with a hemoglobin of 13.1 and hematocrit 40.4, labs within normal limits I reviewed the patient's left hand x-ray along with corresponding radiologic report, no evidence of acute osseous abnormality left hand, fixed flexion of the third distal interphalangeal joint may indicate ligamentous injury. This is known to the patient, patient had prior surgery on this affected digit. I reviewed the patient's forearm x-ray on the left along with corresponding radiologic report, no evidence of acute osseous abnormality of the left forearm. CMP is notable for elevated BUN at 21, which is minimal, mild hyperbilirubin elevation 1.7 otherwise unremarkable CMP Reviewed the patient's right hand x-ray along the corresponding radiologic report, no evidence of acute osseous abnormality the right wrist/hand. I reviewed the patient's x-ray of the forearm on the right along with corresponding radiologic report, no acute abnormality. I reviewed the patient's CT cervical spine without contrast along the corresponding radiologic report, no acute cervical spine fracture. I reviewed the patient CT head without contrast along the corresponding radiologic report, soft tissue edema along the frontal bone to the right of midline no depressed calvarial fracture, no acute intracranial abnormality. Reviewed the patient's CT facial bones without contrast along the corresponding radiologic report, no acute findings. I discussed the results with the patient today with the bedside patient family and agreed with current treatment plan/discharge plan. Patient was given strict ED return precautions, patient follow-up PCP in the upcoming days. Fall precaution given to the patient. Generalized wound precaution given to patient and at the bedside. I was consulted by the [facility], and we discussed the complexity of the problems being addressed. I approve the treatment and management plan for this patient's care in the emergency department, thus performing a substantive portion of the medical decision making. Kevan Avalos MD Critical Care <SUDHAKAR Salcedo - Last Filed: 11/28/24 15:02> Critical Care Time Critical Care Time: No
--- NOTE | 2024-11-28 12:21 | CT_ITS ---
PROCEDURE INFORMATION: Exam: CT Cervical Spine Without Contrast Exam date and time: 11/28/2024 12:51 PM Age: 74 years old Clinical indication: Injury or trauma; Fall; Blunt trauma; Additional info: Fall, neck pain TECHNIQUE: Imaging protocol: Computed tomography of the cervical spine without contrast. Radiation optimization: All CT scans at this facility use at least one of these dose optimization techniques: automated exposure control; mA and/or kV adjustment per patient size (includes targeted exams where dose is matched to clinical indication); or iterative reconstruction. COMPARISON: CT FACIAL BONES WO CON 11/28/2024 12:46 PM FINDINGS: Bones: No acute fracture. Normal alignment. Near-complete osseous fusion at C5-C6. Moderate disc space narrowing at C6-C7. No significant disc bulge or herniation. No severe spinal canal stenosis. No significant neural foraminal narrowing. Lungs: Lung apices are normal. Soft tissues: Unremarkable. IMPRESSION: No acute cervical spine fracture.
--- NOTE | 2024-11-28 12:21 | CT_ITS ---
PROCEDURE INFORMATION: Exam: CT Head Without Contrast Exam date and time: 11/28/2024 12:46 PM Age: 74 years old Clinical indication: Injury or trauma; Fall; Blunt trauma (contusions or hematomas); Additional info: Fall, head trauma, on anticoagulants TECHNIQUE: Imaging protocol: Computed tomography of the head without contrast. Radiation optimization: All CT scans at this facility use at least one of these dose optimization techniques: automated exposure control; mA and/or kV adjustment per patient size (includes targeted exams where dose is matched to clinical indication); or iterative reconstruction. COMPARISON: CT HEAD/BRAIN WO CON 12/02/2019 4:46 PM FINDINGS: Brain: Normal. No hemorrhage. Unremarkable white matter. No mass effect. Cerebral ventricles: No ventriculomegaly. Paranasal sinuses: Visualized sinuses are unremarkable. No fluid levels. Mastoid air cells: Visualized mastoid air cells are well aerated. Bones: See Soft tissues finding. Soft tissues: Soft tissue edema along the frontal bone to the right of midline. No depressed calvarial fracture. IMPRESSION: 1. Soft tissue edema along the frontal bone to the right of midline. No depressed calvarial fracture. 2. No acute intracranial abnormality.
--- NOTE | 2024-11-28 12:21 | CT_ITS ---
PROCEDURE INFORMATION: Exam: CT Maxillofacial Without Contrast Exam date and time: 11/28/2024 12:46 PM Age: 74 years old Clinical indication: Injury or trauma; Blunt trauma (contusions or hematomas); Other: Fall facial trauma TECHNIQUE: Imaging protocol: Computed tomography of the face without contrast. Radiation optimization: All CT scans at this facility use at least one of these dose optimization techniques: automated exposure control; mA and/or kV adjustment per patient size (includes targeted exams where dose is matched to clinical indication); or iterative reconstruction. COMPARISON: CT HEAD/BRAIN WO CON 12/02/2019 4:46 PM FINDINGS: Paranasal sinuses: No air-fluid levels. Orbital cavities: Orbits are normal. Globes are unremarkable. Bones: No acute fracture. Soft tissues: Unremarkable. IMPRESSION: No acute findings.
--- NOTE | 2024-11-28 12:22 | XR_ITS ---
PROCEDURE INFORMATION: Exam: XR Right Forearm Exam date and time: 11/28/2024 12:51 PM Age: 74 years old Clinical indication: Injury or trauma; Fall; Blunt trauma (contusions or hematomas); Arm, lower; Right; Additional info: Fall, forearm/hand pain TECHNIQUE: Imaging protocol: Radiologic exam of the right forearm. Views: 2 views. COMPARISON: CR XR HAND RT MIN 3V 11/28/2024 12:51 PM FINDINGS: Bones/joints: No evidence of acute fracture or malalignment. Soft tissues: Unremarkable. IMPRESSION: No evidence of acute osseous abnormality in the right forearm.
--- NOTE | 2024-11-28 12:22 | XR_ITS ---
PROCEDURE INFORMATION: Exam: XR Left Forearm Exam date and time: 11/28/2024 12:51 PM Age: 74 years old Clinical indication: Injury or trauma; Fall; Blunt trauma (contusions or hematomas); Arm, lower; Left; Additional info: Fall forearm/hand pain TECHNIQUE: Imaging protocol: Radiologic exam of the left forearm. Views: 2 views. COMPARISON: CR XR FOREARM LT 2V 11/28/2024 12:51 PM FINDINGS: Bones/joints: No evidence of acute fracture or malalignment. Soft tissues: Unremarkable. IMPRESSION: No evidence of acute osseous abnormality in the left forearm.
--- NOTE | 2024-11-28 12:22 | XR_ITS ---
PROCEDURE INFORMATION: Exam: XR Right Wrist Exam date and time: 11/28/2024 12:51 PM Age: 74 years old Clinical indication: Injury or trauma; Fall; Blunt trauma (contusions or hematomas); Hand; Right; Additional info: Fall, bilateral hand pain TECHNIQUE: Imaging protocol: Radiologic exam of the right wrist. Views: 3 or more views. COMPARISON: CR XR FOREARM RT 2V 11/28/2024 12:51 PM FINDINGS: Bones/joints: No evidence of acute fracture or malalignment. Soft tissues: Unremarkable. IMPRESSION: No evidence of acute osseous abnormality in the right wrist. PROCEDURE INFORMATION: Exam: XR Right Hand Exam date and time: 11/28/2024 12:51 PM Age: 74 years old Clinical indication: Injury or trauma; Fall; Blunt trauma (contusions or hematomas); Hand; Right; Additional info: Fall, bilateral hand pain TECHNIQUE: Imaging protocol: Radiologic exam of the right hand. Views: 3 or more views. COMPARISON: CR XR HAND RT MIN 3V 11/28/2024 12:51 PM FINDINGS: Bones/joints: No evidence of acute fracture or malalignment. Soft tissues: Unremarkable. IMPRESSION: No evidence of acute osseous abnormality in the right hand.
--- NOTE | 2024-11-28 12:22 | XR_ITS ---
PROCEDURE INFORMATION: Exam: XR Left Wrist Exam date and time: 11/28/2024 12:51 PM Age: 74 years old Clinical indication: Injury or trauma; Fall; Blunt trauma (contusions or hematomas); Hand; Left; Additional info: Fall, bilateral hand pain TECHNIQUE: Imaging protocol: Radiologic exam of the left wrist. Views: 3 or more views. COMPARISON: CR XR FOREARM LT 2V 11/28/2024 12:51 PM FINDINGS: Bones/joints: Punctate ossific body along the volar aspect of the lunate compatible with avulsion fracture, age indeterminate. Wrist joint alignment remains congruent. No other evidence of fracture. Soft tissues: Unremarkable. IMPRESSION: Punctate ossific body along the volar aspect of the lunate compatible with avulsion fracture, age indeterminate. PROCEDURE INFORMATION: Exam: XR Left Hand Exam date and time: 11/28/2024 12:51 PM Age: 74 years old Clinical indication: Injury or trauma; Fall; Blunt trauma (contusions or hematomas); Hand; Left; Additional info: Fall, bilateral hand pain TECHNIQUE: Imaging protocol: Radiologic exam of the left hand. Views: 3 or more views. COMPARISON: CR XR FOREARM LT 2V 11/28/2024 12:51 PM FINDINGS: Bones/joints: No evidence of acute fracture or malalignment. Fixed flexion of the 3rd distal interphalangeal joint may indicate ligamentous injury. Soft tissues: Unremarkable. IMPRESSION: 1. No evidence of acute osseous abnormality in the left hand. 2. Fixed flexion of the 3rd distal interphalangeal joint may indicate ligamentous injury.
--- NOTE | 2024-11-28 12:27 | ECG_ITS ---
APPROVED REPORT Exam: Resting ECG HR:63 bpm ECG Measurements Heart Rate 63 AXES DE 152 P 52 QRSd 145 QRS 63 QT 434 T 49 QTc 441 Conclusion SINUS RHYTHM RIGHT BUNDLE BRANCH BLOCK [120+ ms QRS DURATION, UPRIGHT V1, 40+ ms S IN I/aVL/V4/V5/V6] ABNORMAL ECG UNCONFIRMED REPORT Electronically signed by : DANIKA VILLATORO, 11/29/2024 06:32:36
--- NOTE | 2024-11-28 12:42 | PC.NURSE ---
2 unsuccessful IV attempts by this RN. Pt states he has a hx of difficult IV sticks that required USIV
[2024-11-28 13:42] LABS: Hematocrit 40.4 % (42.0-52.0); Hemoglobin 13.1 g/dL (14.1-18.0); Immature Granulocytes % 0.3 %; Mean Corpuscular HGB Conc 32.4 g/dL (31.8-35.4); Mean Corpuscular Hemoglobin 30.4 pg (27.0-31.2); Mean Corpuscular Volume 93.7 fl (80-94); Nucleated Red Blood Cells % 0 %; Platelet Count 183 K/mm3 (142-424); Red Blood Count 4.31 M/mm3 (4.60-6.20); Red Cell Distribution Width-SD 43.8 fL; White Blood Count 14.0 K/mm3 (4.8-10.8)
[2024-11-28 13:49] LABS: INR 0.98 (0.9-1.1); Prothrombin Time 10.9 seconds (10.1-12.5)
[2024-11-28 14:36] LABS: Alanine Aminotransferase 23 U/L (12-78); Albumin Level 4.5 g/dl (3.5-5.0); Albumin/Globulin Ratio 1.5 (1.1-1.8); Alkaline Phosphatase 52 U/L (38-126); Anion Gap 15.8 mEq/L (5-15); Aspartate Amino Transferase 37 U/L (17-59); Bilirubin,Total 1.7 mg/dl (0.2-1.3); Blood Urea Nitrogen 21 mg/dl (9-20); Calcium 9.9 mg/dl (8.4-10.2); Carbon Dioxide 23 mmol/L (22.0-30.0); Chloride 104 mmol/L (98-107); Creatinine Clearance Estimated 110 mL/min (50-200); Creatinine,Serum 0.80 mg/dl (0.66-1.25); Estimated Glomerular Filt Rate 95 ml/min (>60); GFR (African American) 115 ML/MIN (>60); Globulin 3.0 g/dL (1.3-3.2); Glucose 266 mg/dl (74-100); Potassium 4.8 mmoL/L (3.5-5.1); Sodium 138 mmol/L (136-145); Total Protein,Serum 7.5 g/dl (6.3-8.2)
== END 2024-11-28 15:12 | disposition home or self-care (01) ==
PROVIDERS: Physician Assistant; Emergency Provider Student in an Organized Health Care Education/Training Program; PCP Nurse Practitioner Family
DX: S00.81XA Abrasion of other part of head, initial encounter (principal); M54.2 Cervicalgia; R20.2 Paresthesia of skin; W01.10XA Fall on same level from slipping, tripping and stumbling with subsequent striking against unspecified object, initial encounter
CPT/HCPCS: 70450; 70486; 72125; 73090; 73130; 80053; 85025; 85610; 93005; 99285